=== PATIENT | male | born 1955 | race Caucasian/White ===

== ENCOUNTER 2024-06-30 22:11 | Inpatient (IN) | payer MEDICARE, SELFPAY ==
[2024-06-30 16:45] LABS: % Basophils 0.4 % (0-2); % Eosinophils 2.6 % (0-6); % Immature Granulocytes 0.2 % (0-0.5); % Lymphocytes 18.4 % (20.5-51.1); % Monocytes 11.4 % (1.7-9.3); Absolute Eosinophils 0.1 10^3/uL (0-0.7); Absolute Lymphocytes 0.9 10^3/uL (1.2-3.4); Absolute Monocytes 0.6 10^3/uL (0.1-0.6); Absolute Neutrophils 3.3 10^3/uL (1.4-6.5); Hematocrit 32.5 % (39.0-52.0); Hemoglobin 11.1 g/dL (13.0-18.0); Mean Corp Hgb Conc. 34.2 g/dL (33.0-37.0); Mean Corpuscular Hgb 32.9 pg (27.0-31.0); Mean Corpuscular Volume 96.4 fL (80.0-94.0); Mean Platelet Volume 9.5 fL (7.4-10.4); Nucleated Red Blood Cells % 0 % (-); Platelet Count 157 10^3/uL (130-400); Red Blood Cell Count 3.37 10^6/uL (4.70-6.10); Red Cell Dist. Width 17.1 % (11.5-14.5)
[2024-06-30 17:01] LABS: ALT (SGPT) 15 U/L (0-50); AST (SGOT) 27 U/L (17-59); Alkaline Phosphatase 93 U/L (38-126); Blood Urea Nitrogen 37 mg/dl (9-20); Carbon Dioxide 19 mmol/L (22-30); Chloride 108 mmol/L (98-107); Glucose 126 mg/dl (70-99); Lipase 843 U/L (23-300); Potassium 4.8 mmol/L (3.5-5.1); Sodium 134 mmol/L (135-145); Total Bilirubin 0.8 mg/dl (0.2-1.3); Total Protein 5.6 g/dl (6.3-8.2); eGFR 13.85
--- NOTE | 2024-06-30 18:55 | ED.GENMED ---
History of Present Illness
General
Chief Complaint: Abdominal Symptoms
Source: patient and spouse
Exam Limitations: none
Time Seen by Provider: 06/30/24 18:11
History of Present Illness
History of Present Illness:
68-year-old male complaining of severe diarrhea for 5 or 6 days. No blood or mucus. No abdominal pain. No recent antibiotics. No travel history. No one else is ill at home. Feeling generally weak.
Past History
Past History
ED Past Medical History: HTN, Hypercholesterolemia, NIDDM and Other (Renal insufficiency)
Social History
Personal:
Living: with family
Review of Systems
Review of Systems
All Other Systems: Not applicable
Constitutional: Denies fever or chills
Respiratory: Reports no symptoms
Cardiac: Reports no symptoms
ABD/GI: Denies abdominal pain
Phy Exam
Physical Exam
Physical Exam:
GENERAL: Alert and oriented in no apparent distress. Chronically ill-appearing
EYE: Orbits normal.
NECK: Supple
CARDIAC: Regular rate and rhythm without any obvious murmurs.
LUNGS: Clear breath sounds,normal
ABDOMEN: Soft, without focal tenderness or distention. Significantly elevated BMI
NEUROLOGICAL: Alert and oriented , grossly non-focal
SKIN: Warm and dry, no rash or lesion, no discoloration, skin intact.
MUSCULOSKELETAL: No edema,no deformity.Good color
PSYCH: Normal and appropriate interaction.
Course
Orders/Labs/Results
Orders:
Orders
06/30/24 16:31
Complete Blood Count/With Diff Urgent
Comprehensive Metabolic Panel Urgent
Lipase Urgent
06/30/24 18:51
Urinalysis Reflex To Culture Urgent
Date Specimen was Collected: 06/30/24
Time Specimen was Collected: 18:53
STOOL [C difficile Antigen & Toxins] Urgent
PK Source: Feces/Stool
Specimen Description:
Stool Culture Urgent
KP Source: Feces/Stool
Specimen Description:
0.9% Sodium Chloride 500 ml [Nss] 500 ml IV BOLUS
US Renal With Bladder Urgent
Comment: bladder not full ok, looking at ureteral jets
Reason For Exam: renal failure
06/30/24 18:[address] Non Medication Order As Directed
Physician Order: post void residual
Abnormal Lab Results
06/30/24
16:31
RBC 3.37 L 10^6/uL
(4.70-6.10)
Hgb 11.1 L g/dL
(13.0-18.0)
Hct 32.5 L %
(39.0-52.0)
MCV 96.4 H fL
(80.0-94.0)
MCH 32.9 H pg
(27.0-31.0)
RDW 17.1 H %
(11.5-14.5)
Absolute Lymphs (auto) 0.9 L 10^3/uL
(1.2-3.4)
Lymphocytes % 18.4 L %
(20.5-51.1)
Monocytes % 11.4 H %
(1.7-9.3)
Sodium 134 L mmol/L
(135-145)
Chloride 108 H mmol/L
(98-107)
Carbon Dioxide 19 L mmol/L
(22-30)
BUN 37 H mg/dl
(9-20)
Creatinine 4.4 H* mg/dL
(0.7-1.3)
Glucose 126 H mg/dl
(70-99)
Calcium 8.0 L mg/dl
(8.4-10.2)
Total Protein 5.6 L g/dl
(6.3-8.2)
Albumin 3.0 L g/dl
(3.5-5.0)
Lipase 843 H U/L
(23-300)
06/30/24 16:31
06/30/24 16:31
Vital Signs
Initial and Last Documented VS:
Initial Vital Signs
Temp Pulse Resp Pulse Ox
97.7 F 79 18 97
06/30/24 16:22 06/30/24 16:22 06/30/24 16:22 06/30/24 16:22
Last Documented Vital Signs
Temp Pulse Resp BP Pulse Ox
97.7 F 79 18 119/66 97
06/30/24 16:22 06/30/24 16:22 06/30/24 16:22 06/30/24 19:33 06/30/24 19:55
*Radiology
Radiology exam reviewed: radiology read reviewed (Cortical atrophy)
*Pulse Oximetry
Patient hypoxic: no
Update Note
Update Note:
Patient with diarrhea. Workup in progress. Nonsurgical abdomen. No indication for radiologic testing of the abdomen. Will do renal ultrasounds. Stool culture. Urine. Careful fluids. I called to the office his last creatinine in April was
1.9. Warrants admission and further workup
ED Attending Note
-
Portions of this chart may have been created with voice recognition software.� Occasional wrong word or��sound alike� substitutions may have occurred due to the inherent limitations of voice recognition software.
Discharge Plan
Departure
Patient Disposition: Admit
Date of Disposition: 06/30/24
Time of Disposition: 20:14
Presentation/result/management discussed w/ accepting MD/DO: Hospitalist
Discharge Problem:
Acute renal failure, History of renal insufficiency, Ongoing diarrhea
Prescriptions:
No Action
atorvastatin 80 MG tablet
80 mg PO QPM
carvedilol [Coreg] 25 MG tablet
25 mg PO BID
flaxseed oil 1,000 MG capsule
2,000 mg PO DAILY
amlodipine 10 MG tablet
10 mg PO DAILY
ramipril 10 MG capsule
10 mg PO DAILY
metformin 500 MG tablet extended release 24hr
1,000 mg PO BID
sitagliptin phosphate [Januvia] 100 MG tablet
100 mg PO DAILY
canagliflozin [Invokana] 100 MG tablet
100 mg PO DAILY
Vitamin B12
6,000 mcg PO DAILY
Vitamin D
300 mcg PO DAILY
sulfamethoxazole-trimethoprim 1 TABLET tablet
1 tab PO BID
pantoprazole 40 MG tablet,delayed release (DR/EC)
40 mg PO BID Qty: 60 1RF
aspirin 81 MG tablet,delayed release (DR/EC)
81 mg PO DAILY Qty: 0 0RF
Rx Instructions:
in 5 days
Referrals:
Tara Jim MD [Family Provider] -
Interventions
Interventions:
*Risk Screen - Suicide Last Done: 06/30/24 16:22
*General Assessment Last Done: 06/30/24 16:22
*Neglect/Abuse Screening Last Done: 06/30/24 19:55
*ED- Fall Risk Assessment Last Done: 06/30/24 19:55
*ED COVID-19 Vaccine History Last Done: 06/30/24 19:55
FK-Oahhbc-Qxgwtmhlbu Assessment Last Done: 06/30/24 19:55
Discharge Date and Time
Print Language: MICRONESIAN
[2024-06-30 19:14] VITALS: BMI 40.1
[2024-06-30 19:33] VITALS: BP 119/66
[2024-06-30] MEDS: NSS 500 IV (19:53)
[2024-06-30 20:00] VITALS: BP 126/69
--- NOTE | 2024-06-30 20:43 | HPS.HSE ---
Family Physician
-
Family Physician: Tara Jmi
Chief Complaint
-
Intractable Diarrhea
History of Present Illness
Patient is a 68 y/o male past medical history of coronary artery disease s/p stent, hypertension, hyperlipidemia, diabetes mellitus, and CKD III who presents with diarrhea. Patient reports ongoing diarrhea for about the last week. He reports
abdominal cramping prior to episode of diarrhea. He denies any nausea/vomiting but reports poor oral intake. He reports generalized weakness due to persistent symptoms. He denies fevers, sweats or chills. He denies recent antibiotics, recent
travel, unusual food intake, or sick contacts.
Medical History
Past Medical History
Past Medical History: Reports Other
Additional Past Medical History:
Coronary Artery Disease s/p Stents
Essential Hypertension
Hyperlipidemia
Diabetes Mellitus, Type II
CKD Stage III
Hypothyroidism
GERD/PUD
Past Surgical History: Reports Other
Additional Past Surgical History:
Cardiac Stents
Right Inguinal Hernia Repair
Right Knee Arthroscopy
Social History
Tobacco: Non-smoker
Alcohol: Occasional (Few times a week)
Family History
Family History: Not pertinent
Allergies / Home Medications
Allergies reflects when Allergies were last updated in [employer].
Home Medications with original date entered in [employer]
Allergy/Medication List:
Allergies
Allergy/AdvReac Type Severity Reaction Status Date / Time
codeine Allergy bad dreams Verified 06/30/24 16:23
Home Medications
Vitamin D 300 mcg PO DAILY Supplement 05/15/20
amlodipine 10 mg tablet 10 mg PO DAILY Blood pressure 05/15/20
atorvastatin 80 mg tablet 80 mg PO QPM High cholesterol 05/15/20
canagliflozin 100 mg tablet (Invokana) 100 mg PO DAILY Diabetes 05/15/20
carvedilol 25 mg tablet (Coreg) 25 mg PO BID Blood pressure 05/15/20
metformin 500 mg tablet,extended release 24hr (osmotic) 1,000 mg PO BID Diabetes 05/15/20
ramipril 10 mg capsule 10 mg PO DAILY Blood pressure 05/15/20
aspirin 81 mg tablet,delayed release 81 mg PO DAILY Blood clot prevention/tx ##0 05/18/20
famotidine 20 mg tablet (Pepcid) 20 mg PO DAILY 06/30/24
levothyroxine 100 mcg tablet 100 mcg PO DAILY 06/30/24
Review of Systems
-
A 12 point ROS was completed and negative except as noted: Yes
Constitutional: Denies Fever or Chills
Respiratory: Denies Cough or Trouble Breathing
Cardiac: Denies Chest Pain or Palpitations
Physical Exam
Vital Signs
Vital Signs
Temp Pulse Resp BP Pulse Ox
97.7 F 79 18 119/66 97
06/30/24 16:22 06/30/24 16:22 06/30/24 16:22 06/30/24 19:33 06/30/24 19:55
Physical Exam
General: Comfortable, Conversant and Other (Appears pale)
HEENT: Anicteric and Moist mucous membranes
Respiratory: Clear and Non Labored Respirations
Cardiac: S1/S2 and Regular Rhythm
GI: Soft, Non Tender and Other (Protuberant)
Rectal: Deferred by Provider
Genito-urinary: Deferred by me
Musculoskeletal: No Clubbing and No Cyanosis
Skin: Warm and Dry
Neuro: Awake, Alert, Oriented and Nonfocal/grossly intact
Psych: Calm
Laboratory Results
-
06/30/24 16:31
06/30/24 16:31
Laboratory Results
Total Bilirubin 0.8 mg/dl (0.2-1.3) 06/30/24 16:31
AST 27 U/L (17-59) 06/30/24 16:31
ALT 15 U/L (0-50) 06/30/24 16:31
Alkaline Phosphatase 93 U/L (38-126) 06/30/24 16:31
Lipase 843 U/L (23-300) H 06/30/24 16:31
Data Reviewed
-
Ultrasound: Report Reviewed by me
Lab Data: Labs Reviewed by me
Old Records: Reviewed
Impression/Plan
-
Acute Kidney Injury on CKD III
-Creatinine noted to be 1.9 in April 2024 as outpatient
-Continue IVFs
-Hold metformin and ramipril
-Consult Nephrology
Diarrhea, unclear etiology
-Check stool studies
-Allow clear liquids
Elevated Lipase
-Symptoms are not consistent with pancreatitis given lack of pain
-Possibly related to diarrheal illness
Coronary Artery Disease s/p Stents
-Continue aspirin
Essential Hypertension
-Ramipril on hold due to LANCE
-Continue amlodipine and Coreg with hold parameters
Hyperlipidemia
-Continue atorvastatin
Diabetes Mellitus, Type II
-Metformin and Invokana on hold
-Monitor sugars and continue coverage insulin
Hypothyroidism
-Patient was recently started on levothyroxine in April
-Check TSH
GERD/PUD
-Continue Pepcid
DVT proph: SC Heparin
Code Status: Full Code
[2024-06-30 21:00] VITALS: BP 116/64
--- NOTE | 2024-06-30 21:15 | W.PN.UPDATE ---
Update Note
Progress Note Update
Patient seen in conjunction with CHANTEL. Agree with her findings on history and physical and agree with the assessment and plan unless stated otherwise.
Briefly, this is a 68 y.o w/ h/o CAD s/p stenting, NIDDM, CKD bl creatinine 2, recent diagnosis of hypothyroid started on levothyroxine 100 mcg coming in with 1 week of diarrhea. He reported watery stools several times a day. No abdominal pain,
nausea or vomiting. Endorsed mild abdominal cramps. Denies fevers or chills. No sick contacts. Denies any recent abx use. Denies nsaid use. No history of urinary retention or bph. Family reports decreased po intake over the last week.
Reports occasional etoh.
On arrival in ED he was afebrile, bp 120/60, p78 and normal o2 sat on RA. CBC unremarkable. electrolytes WNL with slightly low bicarb of 19. BUN 37, Cr 4.4. Glucose 127. LFTs WNL. Lipase elevated to 800s. Renal u/s limited by body habitus but
shows medical-renal disease with mild/mod cortical thinning and no hydro.
Assessment and plan
68 y.o here with 1 week of watery diarrhea w mild abdominal cramps. Abdominal exam benign. No leukocytosis and no fevers to suggest diverticulitis. LANCE on CKD likely stemming from recent volume loss. Lytes and acid/base are non-concerning.
LANCE on CKD - Cr 4.4, bl 2.0. No urinary obstruction. BUN is 37 suggesting patient with minimal protein and generally food intake. ?ETOH use. Denies NSAIDS.
- admit to med/surg
- check u/a and urine Na/Cr
- follow i/os for oliguria
- hold ramipril and invokana
- avoid nephrotoxins
- IV NS overnight for now
- orthostatics
- nephrology consultation
Lipase elevation - ?pancreatitis?. No N/V or abdominal pain. Normal LFTs. Benign abdominal exam.
- check etoh level
- diet as tolerated for now
- IV fluids and pain control as above
Diarrhea - Diarrhea appears acute and likely etiology is viral enteritis
- stool cdiff/cultures and wbc
- iv fluids as above
- loperamide prn
DM II
- hold metformin and invokana
- sliding scale insulin
- continue aspirin/statin coreg for CAD
Hypothyroid - recently started levothyroxine 100mcg, ?clinical hyperthyroid
- check tsh levels
DVT PPX - heparin sq
Code status - full code
[2024-06-30 21:49] LABS: TSH Reflex To Free T4 3.13 uIU/ml (0.47-4.68)
[2024-06-30 22:00] VITALS: BP 115/69
[2024-06-30 23:00] VITALS: BP 120/72
[2024-07-01] VITALS (18 sets, daily range): BP systolic 92–116; BP diastolic 46–72; PULSE 74; O2SAT 96
[2024-07-01] MEDS: HEPARIN 5000 UNITS SC ×4 (01:12→23:50)
[2024-07-01] MEDS: NSS 1000 IV ×2 (01:12→09:47)
[2024-07-01 06:30] LABS: Hematocrit 29.1 % (39.0-52.0); Hemoglobin 9.9 g/dL (13.0-18.0); Mean Corpuscular Hgb 32.7 pg (27.0-31.0); Mean Platelet Volume 9.7 fL (7.4-10.4); Platelet Count 120 10^3/uL (130-400); Red Blood Cell Count 3.03 10^6/uL (4.70-6.10); White Blood Cell Count 4.5 10^3/uL (4.8-10.8)
[2024-07-01 06:46] LABS: Blood Urea Nitrogen 39 mg/dl (9-20); Calcium 7.4 mg/dl (8.4-10.2); Carbon Dioxide 19 mmol/L (22-30); Chloride 111 mmol/L (98-107); Estimated Creatinine Clearance 22 ml/min; Glucose 99 mg/dl (70-99); Potassium 5.1 mmol/L (3.5-5.1); Sodium 136 mmol/L (135-145); eGFR 15.08
[2024-07-01 06:56] LABS: Urine Albumin 2+ (Neg - Trace); Urine Bilirubin Negative (Negative); Urine Character Cloudy (Clear); Urine Color Amber; Urine Glucose 4+ (Negative); Urine Ketone Negative (Negative); Urine Leukocyte 3+ (Negative); Urine Nitrite Negative (Negative); Urine Occult Blood 1+ (Negative); Urine Urobilinogen Negative (Neg - 1+)
[2024-07-01] MEDS: NORVASC 10 MG PO (07:38)
[2024-07-01] MEDS: ASPIR LOW (ENTERIC COATED) 81 MG PO (07:38)
[2024-07-01] MEDS: SYNTHROID 100 MCG PO (07:39)
[2024-07-01] MEDS: PEPCID 20 MG PO (07:39)
[2024-07-01] MEDS: COREG 25 MG PO (07:39)
[2024-07-01 07:42] LABS: Glucose - Point of Care 110 mg/dl (70-99)
--- NOTE | 2024-07-01 08:05 | W.PN.HOSP.TC ---
Today's Communication/Plan
-
Continue IV hydration.
Continue loperamide as needed.
Trend renal function.
Assessment / Plan
Assessment / Plan
[place]-[id number]-old male with PMHx significant for CAD s/p PCI, type II DM, CKD 3, hyperlipidemia, hypertension presents with diarrhea for about 1 week.
Plan-
LANCE on CKD stage III
Serum creatinine at 4.1, improved from 4.4 upon admission.
Continue IV fluids for hydration.
Baseline serum creatinine at 1.9 in April 2024 outpatient.
Urine analysis suspicious for UTI, urine squamous epithelial cells pending.
Urine protein to creatinine ratio as recommended by night team would be of less value-questionable accuracy in scenario of CKD stage III.
No need of orthostatic vitals, suspect secondary to LANCE.
Diarrhea-
Acute likely secondary to viral etiology.
C. difficile negative, stool cultures and stool WBC counts pending.
Continue IV fluids.
Continueloperamide
Lipase elevation-
At 835, no nausea or abdominal pain. Likely secondary to decreased clearance from LANCE.
Normal LFTs. No CT abdomen to evaluate for pancreatitis criteria.
IV fluids and pain control and liquid diet.
Type 2 diabetes mellitus-
Hold metformin, and Invokana.
Patient is currently on sliding scale insulin regimen.
HbA1c pending.
CAD-
Continue aspirin and statin.
Hypothyroid-
Recently started on levothyroxine 100 mcg.
TSH levels normal-thyroid 3.13.
DVT prophylaxis-
Heparin SQ
CODE STATUS-
Full code.
Anticipated Discharge: 24 - 48 hours
Subjective/Interval History
-
Date of Service: July 01, 2024
Patient complains of soreness in the back. His diarrheal episodes resolved, cramping abdominal pain resolved. He usually his abdominal cramping is in the lower abdomen mostly in the suprapubic area associated with his loose stools.
Objective Data
-
Labs:
Laboratory Results
07/01/24
06:05
WBC 4.5 L
Hgb 9.9 L
Hct 29.1 L
Plt Count 120 L D
Sodium 136
Potassium 5.1
Chloride 111 H
Carbon Dioxide 19 L
BUN 39 H
Creatinine 4.1 H*
Glucose 99
Calcium 7.4 L
Vital Signs:
Vital Signs
Temp Pulse Resp BP Pulse Ox
97.7 F 78 18 113/56 98
06/30/24 16:22 07/01/24 07:39 07/01/24 02:00 07/01/24 07:39 07/01/24 02:00
Review of Systems
-
History Source: Patient
Constitutional: Reports No Symptoms
EENT: Reports No Symptoms Reported
Respiratory: Reports No Symptoms
Cardiac: Reports No Symptoms
Abdomen/GI: Reports Abdominal Pain (Cramping abdominal pain) and Diarrhea
Breast: Reports No Symptoms
Genitourinary: Reports No Symptoms
Musculoskeletal: Reports Other (Soreness in the back.)
Neuro: Reports No Symptoms
Endocrine: Reports No Symptoms
Physical Exam
-
General: No Apparent Distress and Comfortable
HEENT: Other (Dry mucous membranes.)
Cardiac: Regular Rhythm and S1/S2; Negative Murmur, Rub or Gallop
GI: Soft, Normal Bowel Sounds and Other (Obese body habitus, could not appreciate distention or tenderness in the abdomen)
Genito-urinary: No Costovertebral Tender
Musculoskeletal: No Clubbing, No Cyanosis and No Edema
Skin: Warm
Neuro: AO x 3 and No Motor Deficits
Hematologic / Lymphatic: No Lymphadenopathy
Psych: Calm
Data Reviewed
-
Medical Tests (Nuc Med, Echo etc): Image personally visualized and interpreted, Report Reviewed by me and Discussed with Physician
Labs: Labs Reviewed by me and Discussed with Physician
Sepsis
Vital Signs
110/59, 78, 18, 97.7, 98% on room air.
Physical Exam
Physical Exam:
Mild signs of dehydration, rest of the physical exam-within normal limits.
Capillary Refill
Bilateral Lower Extremity:
Shayy Time: Less than 3 sec
[2024-07-01 08:32] LABS: Urine Squamous Cell >30 /LPF (Few)
[2024-07-01 08:33] LABS: Urine Amorphous Seen; Urine Urothelial Cell 26-30 /LPF (FEW)
[2024-07-01 08:37] LABS: Urine Red Blood Cell 0-2 /HPF (0-2); Urine White Cell >100 /HPF (0-5)
[2024-07-01 08:41] LABS: Urine Bacteria Few (Negative)
[2024-07-01 09:16] LABS: ALT (SGPT) 12 U/L (0-50); AST (SGOT) 21 U/L (17-59); Albumin 2.5 g/dl (3.5-5.0); Lipase 543 U/L (23-300)
[2024-07-01 09:31] LABS: % Basophils 0.4 % (0-2); % Eosinophils 1.7 % (0-6); % Immature Granulocytes 0.4 % (0-0.5); % Monocytes 12.6 % (1.7-9.3); % Neutrophils 65.9 % (42.2-75.2); Absolute Eosinophils 0.1 10^3/uL (0-0.7); Absolute Lymphocytes 0.9 10^3/uL (1.2-3.4); Absolute Monocytes 0.6 10^3/uL (0.1-0.6); Absolute Neutrophils 3.1 10^3/uL (1.4-6.5); Nucleated Red Blood Cells % 0 % (-)
[2024-07-01 09:33] LABS: Glycohemoglobin (HgbA1c) 6.2 % (4.0-5.6)
[2024-07-01 10:13] LABS: Protein/creatinine Ratio 0.2; Urine Protein 26 mg/dl
[2024-07-01 11:23] LABS: Glucose - Point of Care 234 mg/dl (70-99)
--- NOTE | 2024-07-01 11:59 | W.CON.NEPH ---
Consultation
-
Date/Time Consultation Requested: 07/01/2024 7:30 AM
Date/Time Consultation Performed: 07/01/2024 12:00 PM
Requesting Provider: Dr. Holder
Performing Provider: Dr. Ibarra
Reason for Consultation: Acute kidney injury/metabolic acidosis
Medical History
-
Chief Complaint: Acute kidney injury/metabolic acidosis
History of Present Illness:
Patient is a 68 y/o male past medical history of coronary artery disease s/p stent, hypertension (on amlodipine and coreg, ramipril), hyperlipidemia ( on statin) , diabetes mellitus on invokana metformin, and CKD III (.27 april 2024) who presents
with diarrhea. Patient reports ongoing diarrhea for about the last week. He reports abdominal cramping prior to episode of diarrhea. He denies any nausea/vomiting but reports poor oral intake. He reports generalized weakness due to persistent
symptoms. He denies fevers, sweats or chills. He denies recent antibiotics, recent travel, unusual food intake, or sick contacts. On presentation to the hospital he was in acute renal failure with a creatinine of 4.4 off his previous baseline of
and with nongap metabolic acidosis
Past Medical History
Coronary Artery Disease s/p Stents
Essential Hypertension
Hyperlipidemia
Diabetes Mellitus, Type II
CKD Stage III
Hypothyroidism
GERD/PUD
Social History
Tobacco: Non-Smoker
Alcohol: Occasional
Family History
no ckd
Allergies / Home Medications
Allergy/AdvReac Type Severity Reaction Status Date / Time
codeine Allergy bad dreams Verified 06/30/24 16:23
�Medication �Instructions �Recorded �Confirmed �Type
Vitamin D 300 mcg PO DAILY Supplement 05/15/20 06/30/24 History
amlodipine 10 mg tablet 10 mg PO DAILY Blood pressure 05/15/20 06/30/24 History
atorvastatin 80 mg tablet 80 mg PO QPM High cholesterol 05/15/20 06/30/24 History
canagliflozin 100 mg tablet 100 mg PO DAILY Diabetes 05/15/20 06/30/24 History
(Invokana)
carvedilol 25 mg tablet (Coreg) 25 mg PO BID Blood pressure 05/15/20 06/30/24 History
metformin 500 mg tablet,extended 1,000 mg PO BID Diabetes 05/15/20 06/30/24 History
release 24hr (osmotic)
ramipril 10 mg capsule 10 mg PO DAILY Blood pressure 05/15/20 06/30/24 History
aspirin 81 mg tablet,delayed 81 mg PO DAILY Blood clot 05/18/20 06/30/24 Rx
release prevention/tx ##0
famotidine 20 mg tablet (Pepcid) 20 mg PO DAILY 06/30/24 06/30/24 History
levothyroxine 100 mcg tablet 100 mcg PO DAILY 06/30/24 06/30/24 History
Review of Systems
-
History Source: Patient
All other systems: Negative unless noted
Constitutional: Fatigue
EENT: No Symptoms
Respiratory: No Symptoms
Cardiac: No Symptoms
Abdomen/GI: Diarrhea
: No Symptoms
Musculoskeletal: No Symptoms
Skin: No Symptoms
Neurological: Numbness (Chronic feet numbness and paresthesia)
Endocrine: No Symptoms
Hematologic/Lymphatic: No Symptoms
Physical Exam
Vital Signs
Vital Signs
Temp Pulse Resp BP Pulse Ox
97.7 F 78 18 110/59 98
06/30/24 16:22 07/01/24 07:39 07/01/24 02:00 07/01/24 10:00 07/01/24 02:00
Lab Results
07/01/24 06:05
07/01/24 06:05
WBC 4.5 10^3/uL (4.8-10.8) L 07/01/24 06:05
RBC 3.03 10^6/uL (4.70-6.10) L 07/01/24 06:05
Hgb 9.9 g/dL (13.0-18.0) L 07/01/24 06:05
Hct 29.1 % (39.0-52.0) L 07/01/24 06:05
Plt Count 120 10^3/uL (130-400) L D 07/01/24 06:05
Sodium 136 mmol/L (135-145) 07/01/24 06:05
Potassium 5.1 mmol/L (3.5-5.1) 07/01/24 06:05
Chloride 111 mmol/L (98-107) H 07/01/24 06:05
Carbon Dioxide 19 mmol/L (22-30) L 07/01/24 06:05
BUN 39 mg/dl (9-20) H 07/01/24 06:05
Creatinine 4.1 mg/dL (0.7-1.3) H* 07/01/24 06:05
eGFR 15.08 07/01/24 06:05
Glucose 99 mg/dl (70-99) 07/01/24 06:05
Calcium 7.4 mg/dl (8.4-10.2) L 07/01/24 06:05
Albumin 2.5 g/dl (3.5-5.0) L 07/01/24 06:05
Physical Exam
General: AOx3, Nontoxic , NAD
HEENT: PERRL, EOMI, Anicteric, Conjunctivae Clear, Ear/Nose Intact, Hearing Normal, Oropharynx Clear/Moist, Dentition Intact, Facial Symmetry, Neck Supple, Neck: Trachea Midline, No JVD and No Thyromegaly, no Bruits
Respiratory: Clear to auscultation bilaterally with normal lung exersion
Cardiac: S1/S2 and Regular Rate/Rhythm
Breast: Deferred by me
Abdomen: Soft, Nontender, Nondistended, Normal Bowel Sounds and No Hepatosplenomegaly
Rectal: Deferred by Provider
Genito-urinary: No Costovertebral Tenderness
Extremities: No Clubbing, No Cyanosis and No Edema
Skin: No Rash or open lesions
Neuro: Nonfocal/Grossly Intact, CN II-XII (Intact) and Strength (Musculoskeletal exam 5 out of 5 both upper and lower extremities)
Hematologic/Lymphatic: No Cervical Lymphadenopathy, No Submandibular Lymphadenopathy and No Supraclavicular Lymphadenopathy
Psych: Mood/afflect pleasant, Insight/judgement good and Appropriate
Vascular: plus 1 pedal and radial pulses
Data Reviewed
-
CT Scan: Report Reviewed by me (No acute finding)
Ultrasound: Report Reviewed by me (Renal ultrasound report reviewed with noted no hydronephrosis but cortical echogenic texture changes noted)
Labs: Labs Reviewed by me ([facility] CBC, UA: 1+ blood greater than 100 WBCs 3+ leukocyte esterase: 2+ albumin with urine protein to creatinine ratio of 200 mg 4+ glucose few bacteria)
Old Records: Reviewed (Old records reviewed from outpatient April 2024 creatinine 1.9, older records reviewed in electronic medical record from 05/18/2020 creatinine 0.8)
Assessment/Plan
-
Impression:
Acute kidney injury
Chronic kidney disease stage IIIb (1.9 from 05/13)
Diarrhea
Hypertension
Diabetes
Coronary artery disease with previous history of stents in early
Elevated lipase
Anemia
Plan:
LANCE:
- Likely prerenally mediated in setting of diarrhea, patient was also notably hypotensive on admission
- Withholding ramipril and metformin in setting of anabolic acidosis and acute kidney
- I would also withhold SGLT2 inhibitor in setting of acute kidney
- Maintain isotonic IV fluids if acidosis persist will add sodium bicarb
- Would also check SPEP UPEP given proteinuria anemia and narrow anion gap with CKD
CKD:
- Renal ultrasound notes increased cortical echogenicity consistent with chronic disease
-Urine protein to creatinine ratio around 200 mg
-Dysproteinemia workup
-Suspect due to underlying hypertension and longstanding diabetes possibly vascular disease
--- NOTE | 2024-07-01 14:34 | CM ---
CM met with pt bedside
Pt resides with his spouse in a 2SH with 0STE
First floor set up with walk-in shower
Pt is indep with use of a quad cane only
Denies VN/SNF hx and financial insecurities
PCP- Tara Jim
Rx- [facility]
Discharge Disposition- anticipate home, follow for needs
[2024-07-01 15:33] LABS: Urine Sodium 48 mmol/L (30-90)
[2024-07-01] MEDS: LIPITOR 80 MG PO (18:03)
[2024-07-01 18:13] LABS: Glucose - Point of Care 139 mg/dl (70-99)
[2024-07-01 21:27] LABS: Glucose - Point of Care 170 mg/dl (70-99)
[2024-07-01] MEDS: COREG PO (21:52)
[2024-07-02] MEDS: NSS 1000 IV ×3 (03:19→11:39)
[2024-07-02] MEDS: SYNTHROID 100 MCG PO (05:55)
[2024-07-02 06:00] VITALS: BMI 40.9
--- NOTE | 2024-07-02 06:07 | PTCARENOTE ---
When asked when pt last urinated, pt stated 2330. Pt asked if he could try to urinate since he is getting NSS @125mls/hr. Pt stated 'it probably wont happen right now'. Pt stated yes when asked if he feels like he is emptying his bladder completely.
When asked if this RN could bladder scan pt, pt refused. Will continue to educate and plan of care ongoing.
[2024-07-02 06:31] LABS: Hematocrit 29.1 % (39.0-52.0); Hemoglobin 9.8 g/dL (13.0-18.0); Mean Corp Hgb Conc. 33.7 g/dL (33.0-37.0); Mean Corpuscular Hgb 32.9 pg (27.0-31.0); Mean Corpuscular Volume 97.7 fL (80.0-94.0); Mean Platelet Volume 9.5 fL (7.4-10.4); Platelet Count 127 10^3/uL (130-400); Red Blood Cell Count 2.98 10^6/uL (4.70-6.10)
[2024-07-02 07:13] LABS: Blood Urea Nitrogen 34 mg/dl (9-20); Calcium 7.2 mg/dl (8.4-10.2); Carbon Dioxide 20 mmol/L (22-30); Chloride 113 mmol/L (98-107); Estimated Creatinine Clearance 28 ml/min; Glucose 128 mg/dl (70-99); Iron 79 ug/dl (49-181); Phosphorus 3.1 mg/dl (2.5-4.5); Potassium 4.5 mmol/L (3.5-5.1); Sodium 139 mmol/L (135-145); eGFR 19.57
[2024-07-02 07:22] LABS: Percent Saturation 40 % (20-50); Total Iron Binding Capacity 195 ug/dl (261-462)
[2024-07-02 07:28] VITALS: BP 133/69
[2024-07-02 07:47] LABS: Glucose - Point of Care 128 mg/dl (70-99)
[2024-07-02] MEDS: PEPCID 20 MG PO (07:57)
[2024-07-02] MEDS: COREG 25 MG PO ×2 (07:57→22:17)
[2024-07-02] MEDS: ASPIR LOW (ENTERIC COATED) 81 MG PO (07:57)
[2024-07-02] MEDS: HEPARIN 5000 UNITS SC ×2 (07:57→15:18)
[2024-07-02] MEDS: NORVASC 10 MG PO (07:57)
[2024-07-02 11:00] LABS: Glucose - Point of Care 138 mg/dl (70-99)
--- NOTE | 2024-07-02 11:00 | CM ---
Patient seen at bedside
PT/OT rec Home Health
Reviewed options with patient - prefers [facility]
Referral to be entered in [facility]-notified [facility] liaison
PLAN: Home with [facility] when stable
[2024-07-02] MEDS: NSS IV (11:06)
[2024-07-02 11:07] VITALS: BMI 40.9
--- NOTE | 2024-07-02 11:27 | W.PN.NEPH.PH ---
Today's Communication / Plan
-
follow BMP
Assessment/Plan
-
Impression:
Acute kidney injury
Chronic kidney disease stage IIIb (1.9 from 05/13)
Diarrhea
Hypertension
Diabetes
Coronary artery disease with previous history of stents in early
Elevated lipase
Anemia
Plan:
continue IVF, reduce rate
follow BMP
advance diet as allowed
no RASi/SGLT2i for now
-
-
Date of Service: July 02, 2024
CC / HPI / ROS
-
Chief Complaint:
LANCE
History of Present Illness:
LANCE/Cr down to 3.3
mild acidosis 20
BP stable
Review of Systems:
on clears
still some diarrhea
no CP
Labs
-
Labs:
WBC 4.0 10^3/uL (4.8-10.8) L 07/02/24 06:10
RBC 2.98 10^6/uL (4.70-6.10) L 07/02/24 06:10
Hgb 9.8 g/dL (13.0-18.0) L 07/02/24 06:10
Hct 29.1 % (39.0-52.0) L 07/02/24 06:10
Plt Count 127 10^3/uL (130-400) L 07/02/24 06:10
Sodium 139 mmol/L (135-145) 07/02/24 06:10
Potassium 4.5 mmol/L (3.5-5.1) 07/02/24 06:10
Chloride 113 mmol/L (98-107) H 07/02/24 06:10
Carbon Dioxide 20 mmol/L (22-30) L 07/02/24 06:10
BUN 34 mg/dl (9-20) H 07/02/24 06:10
Creatinine 3.3 mg/dL (0.7-1.3) H 07/02/24 06:10
eGFR 19.57 07/02/24 06:10
Glucose 128 mg/dl (70-99) H 07/02/24 06:10
Calcium 7.2 mg/dl (8.4-10.2) L 07/02/24 06:10
Phosphorus 3.1 mg/dl (2.5-4.5) 07/02/24 06:10
Albumin 2.5 g/dl (3.5-5.0) L 07/01/24 06:05
Physical Exam
-
Vital Signs:
Vital Signs
Temp Pulse Resp BP Pulse Ox
98 F 79 14 133/69 95
07/02/24 07:28 07/02/24 07:28 07/02/24 07:28 07/02/24 07:28 07/02/24 07:28
Cardiovascular:: Regular rate and rhythm
Respiratory:: Bilateral: CTA
Lung Excursion:: Normal
Abdomen:: Nontender and Soft
Bowel Sounds:: Normal
Extremity Edema:: None: Bilateral:
--- NOTE | 2024-07-02 11:40 | W.PN.HOSP.TC ---
Addendum entered and electronically signed by Anastacio Holder DO 07/03/24 14:42:
[facility] CDI: Morbid obesity
Original Note:
Today's Communication/Plan
-
Pending nephrology workup.
Trend serum creatinine.
Pending peripheral smear, and folate, vitamin B12 levels
Continue IV fluids at 70 mL/h.
Assessment / Plan
Assessment / Plan
[age]htsnq-39-hsmp-old male with PMHx significant for CAD s/p PCI, type II DM, CKD 3, hyperlipidemia, hypertension presents with diarrhea for about 1 week.
Plan-
LANCE on CKD stage III
Serum creatinine at 3.3 improved from 4.4 upon admission.
Continue IV fluids for hydration.
Baseline serum creatinine at 1.9 in April 2024 outpatient.
Urine analysis suspicious for UTI, urine squamous epithelial cells pending.
Urine protein to creatinine ratio as recommended by night team would be of less value-questionable accuracy in scenario of CKD stage III.
No need of orthostatic vitals, suspect secondary to LANCE.
Nephrology on board, nephrology inputs appreciated.
Currently nephrology working up for C3, C4 levels, globulins, heavy chains, light chains, serum protein electrophoresis. All test results pending.
Pancytopenia-
Suspect secondary to CKD versus acute process.
TIBC low, ferritin transferrin saturations within normal limits-anemia of chronic disease?
Folate and B12 levels pending,
Peripheral smear ordered. Results pending.
Diarrhea-
Acute likely secondary to viral etiology.
C. difficile negative, stool cultures and stool WBC counts pending.
Continue IV fluids.
CT abdomen and pelvis-No acute process in the abdomen or pelvis noted.
Continue loperamide as needed.
Lipase elevation-
At 835 came down to 300., no nausea or abdominal pain. Likely secondary to decreased clearance from LANCE.
Normal LFTs. No CT abdomen to evaluate for pancreatitis criteria.
IV fluids and pain control and liquid diet.
Type 2 diabetes mellitus-
Hold metformin, and Invokana.
Patient is currently on sliding scale insulin regimen.
HbA1c pending.
CAD-
Continue aspirin and statin.
Hypothyroid-
Recently started on levothyroxine 100 mcg.
TSH levels normal-thyroid 3.13.
DVT prophylaxis-
Heparin SQ
CODE STATUS-
Full code.
Anticipated Discharge: 24 - 48 hours
Subjective/Interval History
-
Date of Service: July 02, 2024
Overnight patient had only a single episode of loose stool, otherwise patient has been feeling well.
Objective Data
-
Labs:
Laboratory Results
07/02/24
06:10
WBC 4.0 L
Hgb 9.8 L
Hct 29.1 L
Plt Count 127 L
Sodium 139
Potassium 4.5
Chloride 113 H
Carbon Dioxide 20 L
BUN 34 H
Creatinine 3.3 H
Glucose 128 H
Calcium 7.2 L
Vital Signs:
Vital Signs
Temp Pulse Resp BP Pulse Ox
98 F 79 14 133/69 95
07/02/24 07:28 07/02/24 07:28 07/02/24 07:28 07/02/24 07:28 07/02/24 07:28
I&O
07/01/24 07/02/24 07/03/24
06:59 06:59 06:59
Intake Total 480 / 480
Output Total 700 / 700
Balance -220 / -220
Review of Systems
-
History Source: Patient
All other systems: Reviewed and negative
Constitutional: Denies Fever, No Appetite or Fatigue
Respiratory: Reports No Symptoms
Cardiac: Reports No Symptoms
Abdomen/GI: Reports Abdominal Pain (Cramping lower abdominal pain improving.)
Genitourinary: Reports No Symptoms
Musculoskeletal: Reports No Symptoms
Skin: Reports No Symptoms
Neuro: Reports No Symptoms
Endocrine: Reports No Symptoms
Hematologic / Lymphatic: Reports No Symptoms
Allergy / Immunology: Reports No Symptoms
Physical Exam
-
General: No Apparent Distress and Comfortable; Negative Respiratory Distress
HEENT: Moist Mucous Membranes
Respiratory: Clear to Auscultation; Negative Wheezes, Rales, Rhonchi or Crackles
Cardiac: Regular Rhythm and S1/S2; Negative Murmur, Rub or Gallop
GI: Soft, Nontender, Normal Bowel Sounds and Other (Could not appreciate distention given patient's body habitus.)
Musculoskeletal: No Clubbing, No Cyanosis and No Edema
Skin: Warm
Neuro: AO x 3 and No Motor Deficits
Psych: Calm
Data Reviewed
-
CT Scan: Image personally visualized and interpreted, Report Reviewed by me and Discussed with Physician
Ultrasound: Report Reviewed by me and Discussed with Physician
Labs: Labs Reviewed by me, Discussed with Physician and Discussed with Nurse
[2024-07-02 11:59] LABS: Intact PTH 177.8 pg/ml (13.6-85.8)
--- NOTE | 2024-07-02 12:21 | VNURNOTE ---
Home Health Liaison met with patient at bedside to discuss [facility] nurse/therapy, visits, schedule and homebound status. Patient is agreeable and understands that visits at home will be 2-3 x per week to assess and teach medical management. Patient
stated he splits his time between [place] and [place]. He will be in [place] for a few weeks. Patient is aware that [facility] will contact them for start of care in 1-2 days after discharge from .
[facility] referral completed in [facility].
[2024-07-02 13:27] LABS: Folate 4.8 ng/ml (2.76-20); Vitamin B12 213 pg/ml (239-931)
[2024-07-02 14:56] VITALS: BP 136/76
[2024-07-02 16:28] LABS: Glucose - Point of Care 145 mg/dl (70-99)
[2024-07-02] MEDS: LIPITOR 80 MG PO (17:01)
[2024-07-02 21:06] LABS: Erythropoietin (EPO) 8 mU/mL (4-27)
[2024-07-02 21:53] LABS: Glucose - Point of Care 121 mg/dl (70-99)
[2024-07-02 23:36] LABS: Complement C3 108 mg/dl (88-165)
[2024-07-02 23:50] VITALS: BP 123/77
[2024-07-03] MEDS: NSS 1000 IV ×2 (01:12→15:29)
[2024-07-03] MEDS: HEPARIN 5000 UNITS SC ×3 (01:54→17:01)
[2024-07-03] MEDS: SYNTHROID 100 MCG PO (05:57)
[2024-07-03 06:00] VITALS: BMI 41.1
[2024-07-03 07:22] LABS: Mean Corp Hgb Conc. 33.3 g/dL (33.0-37.0); Mean Corpuscular Hgb 32.7 pg (27.0-31.0); Mean Platelet Volume 9.3 fL (7.4-10.4); Platelet Count 133 10^3/uL (130-400); Red Blood Cell Count 3.06 10^6/uL (4.70-6.10); Red Cell Dist. Width 17.2 % (11.5-14.5); White Blood Cell Count 3.7 10^3/uL (4.8-10.8)
[2024-07-03 07:28] VITALS: BP 121/51
[2024-07-03] MEDS: ASPIR LOW (ENTERIC COATED) 81 MG PO (07:36)
[2024-07-03] MEDS: NORVASC 10 MG PO (07:36)
[2024-07-03] MEDS: COREG 25 MG PO ×2 (07:37→20:14)
[2024-07-03 07:43] LABS: Glucose - Point of Care 131 mg/dl (70-99)
--- NOTE | 2024-07-03 08:22 | W.PN.HOSP.TC ---
Documented by User: Erin Carpenter MD, Resident 07/03/24 13:32
Today's Communication/Plan
-
Stop IV fluids.
Refresh Tears for sticky eyes. (No conjunctivitis)
Pancytopenia workup pending
Cyanocobalamin, vitamin D supplementation.
Assessment / Plan
Assessment / Plan
[age]hw[age]cb-7-bhvy-old male with PMHx significant for CAD s/p PCI, type II DM, CKD 3, hyperlipidemia, hypertension presents with diarrhea for about 1 week.
Plan-
LANCE on CKD stage III
Serum creatinine at 2.4 improved from 4.4 upon admission.
Discontinue IV fluids today. Advance diet to low residue diet.
Encourage optimal oral fluid intake.
Baseline serum creatinine at 1.9 in April 2024 outpatient.
C3, C4-within normal limits (C4 mildly elevated),
Urine analysis suspicious for UTI, urine squamous epithelial cells pending.
Urine protein to creatinine ratio as recommended by night team would be of less value-questionable accuracy in scenario of CKD stage III.
No need of orthostatic vitals, suspect secondary to LANCE.
Nephrology on board, nephrology inputs appreciated.
Currently nephrology workup-globulins, heavy chains, light chains, serum protein electrophoresis pending.
Pancytopenia-
Suspect secondary to CKD versus acute process.
TIBC low, ferritin transferrin saturations within normal limits-anemia of chronic disease?
Normal folate levels, low vitamin B12 levels-supplement cyanocobalamin.
Peripheral smear ordered. Results negative for parasites.
At this point suspect more likely secondary to pancytopenia
Diarrhea-
Acute likely secondary to viral etiology.
C. difficile negative, stool cultures and stool WBC counts pending.
Discontinue IV fluids. Advance diet to low residue diet.
CT abdomen and pelvis-No acute process in the abdomen or pelvis noted.
Continue loperamide as needed.
Elevated PTH levels-
Suspect secondary hyperparathyroidism and CKD scenario.
Placed order for vitamin D D levels.
Vitamin D insufficiency, start vitamin D replacement.
Lipase elevation-
At 835 came down to 300., Elevated to 543. No nausea or abdominal pain. Likely secondary to decreased clearance from LANCE.
Normal LFTs. No CT abdomen to evaluate for pancreatitis criteria.
IV fluids and pain control and liquid diet.
Type 2 diabetes mellitus-
Hold metformin, and Invokana.
Patient is currently on sliding scale insulin regimen.
HbA1c pending.
CAD-
Continue aspirin and statin.
Regular alcohol intake with no dependence history or withdrawal history-
Add thiamine.
Morbid obesity -
Likely due to excess calories.
No diagnosis of obesity hypoventilation syndrome.
Hypothyroid-
Recently started on levothyroxine 100 mcg.
TSH levels normal-thyroid 3.13.
DVT prophylaxis-
Heparin SQ
CODE STATUS-
Full code.
Anticipated Discharge: 24 - 48 hours
Subjective/Interval History
-
Date of Service: July 03, 2024
Patient complains of weakness and feeling wobbly on his legs today. He wants his diet to be advanced. He had 2 episodes of loose stools yesterday.
He is also complaining of stickiness in both his eyes with discharge and crusting.
Objective Data
-
Labs:
Laboratory Results
07/03/24
06:50
WBC 3.7 L
Hgb 10.0 L
Hct 30.0 L
Plt Count 133
Sodium Pending
Potassium Pending
Chloride Pending
Carbon Dioxide Pending
BUN Pending
Creatinine Pending
Glucose Pending
Calcium Pending
Vital Signs:
Vital Signs
Temp Pulse Resp BP Pulse Ox
97.9 F 107 16 121/51 100
07/03/24 07:28 07/03/24 07:28 07/03/24 07:28 07/03/24 07:28 07/03/24 07:28
I&O
07/02/24 07/03/24 07/04/24
06:59 06:59 06:59
Intake Total 480 / 480 240 / 240
Output Total 700 / 700 300 / 300
Balance -220 / -220 -60 / -60
Review of Systems
-
History Source: Patient
Constitutional: Reports Fatigue and Weakness
EENT: Reports Other (Bilateral eye itching, discharge, stickiness.)
Respiratory: Reports No Symptoms
Cardiac: Reports No Symptoms
Abdomen/GI: Reports No Symptoms
Breast: Reports No Symptoms
Genitourinary: Reports No Symptoms
Musculoskeletal: Reports No Symptoms
Skin: Reports No Symptoms
Neuro: Reports No Symptoms
Endocrine: Reports No Symptoms
Hematologic / Lymphatic: Reports No Symptoms
Allergy / Immunology: Reports No Symptoms
Physical Exam
-
General: No Apparent Distress and Comfortable
HEENT: Moist Mucous Membranes, [place] Conjunctivae, PERRLA and Other (Yellow crusting noted on eyelids, no conjunctival suffusion,)
Respiratory: Clear to Auscultation; Negative Wheezes, Rales, Rhonchi or Crackles
Cardiac: Regular Rhythm and S1/S2; Negative Murmur, Rub or Gallop
GI: Soft, Nontender, Normal Bowel Sounds and Other (Difficult to comment given body habitus.)
Genito-urinary: Other (Bilateral scrotal swelling on inspection, suspect hydrocele (palpation not done))
Musculoskeletal: No Clubbing, No Cyanosis and No Edema
Skin: Warm
Neuro: AO x 3 and No Motor Deficits
Psych: Calm
Data Reviewed
-
Labs: Labs Reviewed by me, Discussed with Physician and Discussed with Nurse

Documented by User: Anastacio Holder DO 07/03/24 13:59
Today's Communication/Plan
-
Light IV fluids.
Refresh Tears for sticky eyes. (No conjunctivitis)
Pancytopenia workup pending
Cyanocobalamin, vitamin D supplementation.
[2024-07-03 08:29] LABS: Blood Urea Nitrogen 29 mg/dl (9-20); Calcium 7.1 mg/dl (8.4-10.2); Carbon Dioxide 20 mmol/L (22-30); Chloride 112 mmol/L (98-107); Estimated Creatinine Clearance 37 ml/min; Glucose 122 mg/dl (70-99); Potassium 4.5 mmol/L (3.5-5.1); Sodium 141 mmol/L (135-145)
--- NOTE | 2024-07-03 09:10 | VATNOTE ---
VAT rounds: during routine assessment, large infiltration of IV fluids noted to R forearm. Arm significantly swollen. IV fluids stopped, IV removed, heat applied to arm and arm elevated. Patient education completed regarding treatment of
infiltration, instructed pt to keep arm elevated and apply heat throughout the day. PCN notified of same. New IV started per documentation.
--- NOTE | 2024-07-03 09:15 | PN.CDI ---
CDI
- -
CDI:
Physician Documentation Request
Admit Date: 06/30/24 22:11
Dear Doctor Gallo/Resident,
Please review the following and provide your response in the progress notes.
Clinical Indicators:
Height: 5 ft 9 in
Weight: 278 lb
BMI:41.1
If possible, please provide an associated diagnosis related to the abnormal BMI, such as:
BMI > or = to 40
Obesity:
Due to excess calories
Drug induced
Due to other cause
Severe or morbid obesity:
With alveolar hypoventilation (Obesity hypoventilation syndrome)
Without alveolar hypoventilation
- Other
Use of terms such as suspected, likely, concern for, or probable (associated with a specific diagnosis that is being evaluated, monitored, or treated as if it exists) are acceptable and can be coded in the inpatient setting, when documented at the
time of discharge.
Thank you,
Tali Ryan RN
CDI Specialist
Reading Text
Please use your independent medical judgment in providing your response.
[2024-07-03] MEDS: CYANOCOBALAMIN 1000 MCG IM (09:39)
[2024-07-03 10:09] LABS: Vitamin D, 25-OH*** 22.6 ng/mL (30-80)
[2024-07-03 10:44] VITALS: BP 117/62; PULSE 81; O2SAT 96
[2024-07-03 10:49] VITALS: BP 117/62
[2024-07-03 11:42] LABS: Glucose - Point of Care 134 mg/dl (70-99)
--- NOTE | 2024-07-03 11:54 | CM ---
Patient seen at bedside with
PT rec Home Health
CM consult completed
Referral [facility] - accepted
IMM explained & signed. In chart
PLAN: home with [facility] when stable
to transport
--- NOTE | 2024-07-03 12:25 | W.PN.NEPH.PH ---
Today's Communication / Plan
-
IV fluid
Assessment/Plan
-
Impression:
Acute kidney injury
Chronic kidney disease stage IIIb (1.9 from 05/13)
Diarrhea
Hypertension
Diabetes
Coronary artery disease with previous history of stents in early
Elevated lipase
Anemia
Plan:
continue IVF, reduced rate
follow BMP
advance diet as allowed
no RASi/SGLT2i for now, may be able to restart yesterday depending on blood pressures
-
-
Date of Service: July 03, 2024
CC / HPI / ROS
-
Chief Complaint:
LANCE
History of Present Illness:
LANCE/Cr down to 2.5
mild acidosis 20 persists
BP stable
Review of Systems:
Tolerating diet advance
no CP
Nonoliguric
Labs
-
Labs:
WBC 3.7 10^3/uL (4.8-10.8) L 07/03/24 06:50
RBC 3.06 10^6/uL (4.70-6.10) L 07/03/24 06:50
Hgb 10.0 g/dL (13.0-18.0) L 07/03/24 06:50
Hct 30.0 % (39.0-52.0) L 07/03/24 06:50
Plt Count 133 10^3/uL (130-400) 07/03/24 06:50
Sodium 141 mmol/L (135-145) 07/03/24 06:50
Potassium 4.5 mmol/L (3.5-5.1) 07/03/24 06:50
Chloride 112 mmol/L (98-107) H 07/03/24 06:50
Carbon Dioxide 20 mmol/L (22-30) L 07/03/24 06:50
BUN 29 mg/dl (9-20) H 07/03/24 06:50
Creatinine 2.5 mg/dL (0.7-1.3) H 07/03/24 06:50
eGFR 27.30 07/03/24 06:50
Glucose 122 mg/dl (70-99) H 07/03/24 06:50
Calcium 7.1 mg/dl (8.4-10.2) L 07/03/24 06:50
Phosphorus 3.1 mg/dl (2.5-4.5) 07/02/24 06:10
Albumin 2.5 g/dl (3.5-5.0) L 07/01/24 06:05
Physical Exam
-
Vital Signs:
Vital Signs
Temp Pulse Resp BP Pulse Ox
97.9 F 107 16 121/51 100
07/03/24 07:28 07/03/24 07:28 07/03/24 07:28 07/03/24 07:28 07/03/24 07:28
Cardiovascular:: Regular rate and rhythm
Respiratory:: Bilateral: Coarse
Lung Excursion:: Normal
Abdomen:: Nontender and Soft
Bowel Sounds:: Normal
Extremity Edema:: None: Bilateral:
[2024-07-03 13:24] LABS: Hepatitis B Surface Antigen Negative (Negative)
[2024-07-03 13:34] LABS: Hepatitis A IgM Antibody Negative (Negative); Hepatitis B Core Ab, IgM Negative (Negative)
[2024-07-03 13:42] LABS: Hepatitis A Antibody, Total Positive (Negative); Hepatitis B Core Ab, Total Negative (Negative); Hepatitis B Surface Antibody Negative; Hepatitis C Antibody Negative (Negative)
[2024-07-03] MEDS: REFRESH EYE DROPS (PF) 2 DROPS OPHTH ×2 (14:04→20:15)
[2024-07-03 14:46] VITALS: BP 124/71
[2024-07-03 16:48] LABS: Glucose - Point of Care 139 mg/dl (70-99)
[2024-07-03] MEDS: LIPITOR 80 MG PO (17:01)
[2024-07-03 20:15] VITALS: BP 127/68
[2024-07-03] MEDS: DESENEX/MITRAZOL/ZEASORB 1 APPLIC TOPICAL (20:15)
[2024-07-03 21:23] LABS: Glucose - Point of Care 133 mg/dl (70-99)
[2024-07-03 22:56] LABS: Albumin 2.48 g/dL (3.75-5.01); Alpha 1 Globulin 0.38 g/dL (0.19-0.46); SPEP IFE Reflex Not Done
[2024-07-03 23:00] VITALS: BP 113/63
[2024-07-04] MEDS: HEPARIN 5000 UNITS SC ×2 (00:04→08:11)
[2024-07-04 06:00] VITALS: BMI 41.5
[2024-07-04] MEDS: SYNTHROID 100 MCG PO (06:03)
[2024-07-04] MEDS: NSS 1000 IV (06:04)
[2024-07-04 06:40] LABS: Hematocrit 29.6 % (39.0-52.0); Hemoglobin 9.9 g/dL (13.0-18.0); Mean Corp Hgb Conc. 33.4 g/dL (33.0-37.0); Mean Corpuscular Hgb 32.7 pg (27.0-31.0); Mean Corpuscular Volume 97.7 fL (80.0-94.0); Mean Platelet Volume 9.3 fL (7.4-10.4); Platelet Count 122 10^3/uL (130-400); Red Blood Cell Count 3.03 10^6/uL (4.70-6.10); Red Cell Dist. Width 17.2 % (11.5-14.5)
[2024-07-04 07:19] VITALS: BP 125/64
[2024-07-04 07:46] LABS: Blood Urea Nitrogen 26 mg/dl (9-20); Calcium 7.2 mg/dl (8.4-10.2); Carbon Dioxide 19 mmol/L (22-30); Chloride 115 mmol/L (98-107); Estimated Creatinine Clearance 47 ml/min; Glucose 128 mg/dl (70-99); Potassium 4.4 mmol/L (3.5-5.1); Sodium 142 mmol/L (135-145); eGFR 35.68
[2024-07-04] MEDS: REFRESH EYE DROPS (PF) 2 DROPS OPHTH (08:11)
[2024-07-04] MEDS: COREG 25 MG PO (08:11)
[2024-07-04] MEDS: PEPCID 20 MG PO (08:12)
[2024-07-04] MEDS: NORVASC 10 MG PO (08:12)
[2024-07-04] MEDS: ASPIR LOW (ENTERIC COATED) 81 MG PO (08:13)
[2024-07-04] MEDS: VITAMIN B-12 1000 MCG PO (08:13)
[2024-07-04] MEDS: DESENEX/MITRAZOL/ZEASORB 1 APPLIC TOPICAL (08:14)
[2024-07-04] MEDS: VITAMIN D3 (cholecalciferol) 250 MCG PO (08:30)
[2024-07-04 08:35] LABS: Glucose - Point of Care 119 mg/dl (70-99)
--- NOTE | 2024-07-04 09:06 | W.PN.HOSP.TC ---
Today's Communication/Plan
-
Bicarbonate, loperamide
Discontinue IV fluids.
Follow-up with outpatient oncology, GI, primary care, nephrology.
Assessment / Plan
Assessment / Plan
Wzmirkdtbx-80-ne[age]-old male with PMHx significant for CAD s/p PCI, type II DM, CKD 3, hyperlipidemia, hypertension presents with diarrhea for about 1 week.
Plan-
LANCE on CKD stage III
Serum creatinine at 2.4 improved from 4.4 upon admission.
Discontinue IV fluids today. Advance diet to low residue diet.
Encourage optimal oral fluid intake.
Baseline serum creatinine at 1.9 in April 2024 outpatient.
C3, C4-within normal limits (C4 mildly elevated),
Urine analysis suspicious for UTI, urine squamous epithelial cells pending.
Urine protein to creatinine ratio as recommended by night team would be of less value-questionable accuracy in scenario of CKD stage III.
No need of orthostatic vitals, suspect secondary to LANCE.
Nephrology on board, nephrology inputs appreciated.
Currently nephrology workup-globulins, heavy chains, light chains, serum protein electrophoresis pending.
Pancytopenia-
Suspect secondary to CKD versus acute process.
TIBC low, ferritin transferrin saturations within normal limits-anemia of chronic disease?
Normal folate levels, low vitamin B12 levels-supplement cyanocobalamin.
Peripheral smear ordered. Results negative for parasites.
At this point suspect more likely secondary to pancytopenia
Diarrhea-
Acute likely secondary to viral etiology.
C. difficile negative, stool cultures and stool WBC counts pending.
Discontinue IV fluids. Advance diet to low residue diet.
CT abdomen and pelvis-No acute process in the abdomen or pelvis noted.
Continue loperamide as needed.
Acidemia-
Continues to be having low CO2 throughout admission
Nephrology added bicarb
Continue oral bicarbonate at home
Elevated PTH levels-
Suspect secondary hyperparathyroidism and CKD scenario.
Placed order for vitamin D D levels.
Vitamin D insufficiency, start vitamin D replacement.
Lipase elevation-
At 835 came down to 300., Elevated to 543. No nausea or abdominal pain. Likely secondary to decreased clearance from LANCE.
Normal LFTs. No CT abdomen to evaluate for pancreatitis criteria.
IV fluids and pain control and liquid diet.
Type 2 diabetes mellitus-
Hold metformin, and Invokana.
Patient is currently on sliding scale insulin regimen.
HbA1c pending.
CAD-
Continue aspirin and statin.
Regular alcohol intake with no dependence history or withdrawal history-
Add thiamine.
Morbid obesity -
Likely due to excess calories.
No diagnosis of obesity hypoventilation syndrome.
Hypothyroid-
Recently started on levothyroxine 100 mcg.
TSH levels normal-thyroid 3.13.
DVT prophylaxis-
Heparin SQ
CODE STATUS-
Full code.
Anticipated Discharge: Today
Subjective/Interval History
-
Date of Service: July 04, 2024
Single episode of bowel incontinence in the p.m. yesterday during sleep. He is continuing to have itching around his eyes. He feels pretty rundown.
Objective Data
-
Labs:
Laboratory Results
07/04/24
06:23
WBC 4.0 L
Hgb 9.9 L
Hct 29.6 L
Plt Count 122 L
Sodium 142
Potassium 4.4
Chloride 115 H
Carbon Dioxide 19 L
BUN 26 H
Creatinine 2.0 H
Glucose 128 H
Calcium 7.2 L
Vital Signs:
Vital Signs
Temp Pulse Resp BP Pulse Ox
98.3 F 76 16 125/64 96
07/04/24 07:19 07/04/24 07:19 07/04/24 07:19 07/04/24 07:19 07/04/24 07:19
I&O
07/03/24 07/04/24 07/05/24
06:59 06:59 06:59
Intake Total 240 / 240 1800 / 1800
Output Total 300 / 300 500 / 500
Balance -60 / -60 1300 / 1300
Review of Systems
-
History Source: Patient
Constitutional: Reports No Appetite and Fatigue
Respiratory: Reports No Symptoms
Cardiac: Reports No Symptoms
Abdomen/GI: Reports Diarrhea
Breast: Reports No Symptoms
Genitourinary: Reports No Symptoms
Skin: Reports No Symptoms
Neuro: Reports No Symptoms
Endocrine: Reports No Symptoms
Hematologic / Lymphatic: Reports No Symptoms
Physical Exam
-
General: No Apparent Distress and Morbidly Obese
HEENT: Moist Mucous Membranes
Respiratory: Clear to Auscultation; Negative Wheezes, Rales, Rhonchi or Crackles
Cardiac: Regular Rhythm, S1/S2, Murmur, Rub and Gallop
GI: Soft, Nontender, Nondistended and Normal Bowel Sounds
Musculoskeletal: No Clubbing, No Cyanosis, Edema, Right Lower Extrem (1+ up to mid law) and Edema, Left Lower Extrem (1+ up to mid law)
Neuro: AO x 3 and No Motor Deficits
Psych: Calm
Data Reviewed
-
Medical Tests (Nuc Med, Echo etc): Report Reviewed by me
Labs: Labs Reviewed by me, Discussed with Physician and Discussed with Nurse
[2024-07-04 09:57] LABS: Erythrocyte Sed Rate 60 mm/hour (0-20)
[2024-07-04 11:52] LABS: Glucose - Point of Care 125 mg/dl (70-99)
--- NOTE | 2024-07-04 12:15 | W.PN.NEPH.PH ---
Today's Communication / Plan
-
stable for discharge
started bicarbonate
creatinine stable
Assessment/Plan
-
Impression:
Acute kidney injury
Chronic kidney disease stage IIIb (1.9 from 05/13)
Diarrhea
Hypertension
Diabetes
Coronary artery disease with previous history of stents in early
Elevated lipase
Anemia
Plan:
Creatinine now at baseline ~2
started sodium bicarbonate 325mg BID
advance diet as allowed
no RASi/SGLT2i for now, may be able to restart yesterday depending on blood pressures
stable for discharge
we will follow up as outpatient
-
-
Date of Service: July 04, 2024
CC / HPI / ROS
-
Chief Complaint:
LANCE
History of Present Illness:
LANCE/Cr down to 2.0
mild acidosis 19 persists
BP stable
Review of Systems:
Tolerating diet advance
no CP
Nonoliguric
Labs
-
Labs:
WBC 4.0 10^3/uL (4.8-10.8) L 07/04/24 06:23
RBC 3.03 10^6/uL (4.70-6.10) L 07/04/24 06:23
Hgb 9.9 g/dL (13.0-18.0) L 07/04/24 06:23
Hct 29.6 % (39.0-52.0) L 07/04/24 06:23
Plt Count 122 10^3/uL (130-400) L 07/04/24 06:23
Sodium 142 mmol/L (135-145) 07/04/24 06:23
Potassium 4.4 mmol/L (3.5-5.1) 07/04/24 06:23
Chloride 115 mmol/L (98-107) H 07/04/24 06:23
Carbon Dioxide 19 mmol/L (22-30) L 07/04/24 06:23
BUN 26 mg/dl (9-20) H 07/04/24 06:23
Creatinine 2.0 mg/dL (0.7-1.3) H 07/04/24 06:23
eGFR 35.68 07/04/24 06:23
Glucose 128 mg/dl (70-99) H 07/04/24 06:23
Calcium 7.2 mg/dl (8.4-10.2) L 07/04/24 06:23
Phosphorus 3.1 mg/dl (2.5-4.5) 07/02/24 06:10
Albumin 2.5 g/dl (3.5-5.0) L 07/01/24 06:05
Physical Exam
-
Vital Signs:
Vital Signs
Temp Pulse Resp BP Pulse Ox
98.3 F 76 16 125/64 96
07/04/24 07:19 07/04/24 07:19 07/04/24 07:19 07/04/24 07:19 07/04/24 07:19
Cardiovascular:: Regular rate and rhythm
Respiratory:: Bilateral: Coarse
Lung Excursion:: Normal
Abdomen:: Nontender and Soft
Bowel Sounds:: Normal
Extremity Edema:: None: Bilateral:
--- NOTE | 2024-07-04 12:31 | CM ---
IMM signed yesterday in chart
[facility] referral in [facility] & accepted
PLAN: home with [facility] when stable
to transport
[2024-07-04] MEDS: BENADRYL 25 MG PO (13:53)
[2024-07-04 14:49] VITALS: BP 108/65
--- NOTE | 2024-07-07 16:35 | W.DCSUMMARY ---
Discharge Summary
Discharge Data
Date of Admission: 06/30/24
Date of Discharge: 07/04/24
-
Pending Results: No
Hospital Course
Impression-
68-year-old male with PMHx significant for CAD s/p PCI, type II DM, CKD 3, hyperlipidemia, hypertension presents with diarrhea for about 1 week. Patient is admitted to the hospital for LANCE secondary to dehydration.
Hospital course-
Chata, during his 4-day hospital course was found to be in LANCE with a serum creatinine of 4.4. In March 2024 he had a serum creatinine of 1.9, and is diagnosed with stage IIIa CKD. He is also noticed to be having diarrheal episodes with some
fecal incontinence in the setting of acute deconditioning. Hence nephrology was consulted to workup his LANCE, patient received urine creatinine to protein ratio,
Patient also received C3, C4, negative SPEP and ADRIANA in the hospitalization all of which were negative. A peripheral blood smear was performed looking for parasites which is also negative. His stool for C. difficile, norovirus are negative. His
stool for WBC counts, ova and parasites including Salmonella, Shigella, Campylobacter jejuni are negative. His LANCE was suspected to be solely from hypoperfusion secondary to dehydration. Patient improved on IV hydration for 3 days. Nephrology was
consulted who were following his LANCE throughout hospitalization. During this hospitalization he was also found to be in chronic metabolic acidosis for which bicarbonate was added twice daily into his medication regimen.
However his fecal incontinence was still a question of concern as there was no etiology established during the inpatient hospital workup. Hence patient was given a referral to follow-up with gastroenterology.
During the hospital patient is also diagnosed with new onset pancytopenia, his peripheral blood smear was negative, his PT/INR were negative, he was also found to have vitamin B12 and vitamin D deficiencies. All of which points towards a
malabsorption syndrome or other hematological process. Which is why patient is referred to gastroenterology as well as hematology/oncology.
Patient also developed acute blepharitis of bilateral eyes in the hospital for which patient was given fresh tears and Benadryl. Patient's eyes improved partially during the hospitalization.
He was discharged home with a serum creatinine of 2.0, with repeat BMP in 1 week. He is also recommended to see his primary care physician within 1 week.
Medication changes-
Bicarbonate 650 mg half tablet twice daily added to his home medication regimen.
His Invokana was held till he sees his primary care physician.
His ramipril was held during hospitalization, but was continued upon discharge.
Patient was also started on vitamin B12 and thiamine, and vitamin D during hospitalization.
Imaging obtained during hospitalization-
Abdomen/pelvis CT-07/01/2024-
No acute process in the abdomen or pelvis
Renal ultrasound-06/30/2024-
Kidney visualization is limited by body habitus. Mild to moderate renal cortical atrophy noted with no shadowing renal or bladder calculus. No hydronephrosis.
Discharge Plan
-
Patient Disposition: Home with Home Care
Discharge Diagnosis/Procedures: LANCE secondary to dehydration, acute GE-unknown etiology
Condition: Fair
Diet: Low Cholesterol and Diabetic, Carb Controlled
Activity: No restrictions
Driving Restrictions: As prior to admission
Bathing Restrictions: None
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
Other Services: VN, PT and OT
Activity Restrictions/Additional Instructions:
Use loperamide for diarrhea as needed.
Your consumption of fluids should be equal to the amount of stool volume lost.
Instructions: Dehydration, Adult (DC), Diarrhea in adults - ED discharge instructions
Referrals:
Kian Cheema MD [Active] - in two to three weeks
(Patient has unexplained diarrhea-stool workup, parasite, ova, WBCs stools negative.
Workup for malabsorption versus other etiologies.)
Tara Jim MD [Family Provider] -
Isaak Ibarra DO [Active] - in two weeks
()
Anastacio Sam MD [Active] - in two to four weeks (Pancytopenia workup)
Prescriptions:
New
sodium bicarbonate 650 mg Tablet
325 mg PO BID 30 Days Qty: 60 1RF
Refresh Classic (PF) 1.4-0.6 % Dropperette
2 drops ophthalmic (eye) BID 7 Days Qty: 2 0RF
cyanocobalamin (vitamin B-12) [Vitamin B-12] 1,000 mcg Tablet
1,000 mcg PO DAILY 30 Days Qty: 30 1RF
loperamide 2 mg capsule
2 mg PO Q6H PRN (Reason: loose stool) 10 Days Qty: 40 1RF
Continued
atorvastatin 80 MG tablet
80 mg PO QPM
carvedilol [Coreg] 25 MG tablet
25 mg PO BID
amlodipine 10 MG tablet
10 mg PO DAILY
ramipril 10 MG capsule
10 mg PO DAILY
metformin 500 MG tablet extended release 24hr
1,000 mg PO BID
aspirin 81 MG tablet,delayed release (DR/EC)
81 mg PO DAILY Qty: 0 0RF
Rx Instructions:
in 5 days
levothyroxine 100 mcg tablet
100 mcg PO DAILY
famotidine [Pepcid] 20 mg Tablet
20 mg PO DAILY
Vitamin D
300 mcg PO DAILY 30 Days Qty: 30 0RF
Held
Invokana 100 MG tablet
100 mg PO DAILY
Hold Instructions: Resume on 07/18/24. 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
Discharge Orders:
Discharge Patient (As Directed); Ordered 07/04/24
Ordered By: Erin Carpenter
Discharge Date and Time
Discharge Date/Time: 07/04/24 15:20
Print Language: BELARUSIAN
== END 2024-07-04 15:20 | disposition home health service (06) | DRG 683 ==
LOC: 3 WEST ACU 22:11
PROVIDERS: Emergency Medicine; Physician Assistant Medical; Specialist; Student in an Organized Health Care Education/Training Program; ADMITTING PHYSICIAN Internal Medicine; ATTENDING PHYSICIAN Internal Medicine; CONSULT PHYSICIAN Specialist; EMERGENCY PHYSICIAN Emergency Medicine; FAMILY PHYSICIAN Family Medicine
DX: N17.9 Acute kidney failure, unspecified (principal); E87.20 Acidosis, unspecified; Z68.41 Body mass index [BMI] 40.0-44.9, adult; N18.32 Chronic kidney disease, stage 3b; I12.9 Hypertensive chronic kidney disease with stage 1 through stage 4 chronic kidney disease, or unspecified chronic kidney disease; E11.22 Type 2 diabetes mellitus with diabetic chronic kidney disease; A08.4 Viral intestinal infection, unspecified; E05.90 Thyrotoxicosis, unspecified without thyrotoxic crisis or storm; D63.1 Anemia in chronic kidney disease; E78.00 Pure hypercholesterolemia, unspecified; Z95.5 Presence of coronary angioplasty implant and graft; I25.10 Atherosclerotic heart disease of native coronary artery without angina pectoris; K21.9 Gastro-esophageal reflux disease without esophagitis; Z88.5 Allergy status to narcotic agent; Z79.890 Hormone replacement therapy; Z79.82 Long term (current) use of aspirin; Z79.84 Long term (current) use of oral hypoglycemic drugs; Z79.899 Other long term (current) drug therapy; E66.01 Morbid (severe) obesity due to excess calories
CPT/HCPCS: 74176; 76770; 80048; 80053; 81003; 81015; 82040; 82306; 82570; 82607; 82668; 82728; 82746; 82962; 83036; 83540; 83550; 83690; 83970; 84100; 84155; 84156; 84165; 84300; 84443; 84450; 84460; 85025; 85027; 85652; 86160; 86704; 86705; 86706; 86708; 86709; 86803; 87015; 87045; 87046; 87086; 87207; 87324; 87340; 87427; 87449; 87798; 97163; 97167; 97530; 97535

== ENCOUNTER 2024-12-03 08:56 | Inpatient (IN) | payer MEDICARE, SELFPAY ==
[2024-12-03] VITALS (55 sets, daily range): BP systolic 87–149; BP diastolic 65–105; BMI 40.4; BMI 39.4
--- NOTE | 2024-12-03 06:37 | ED.GENMED ---
History of Present Illness
General
Chief Complaint: Breathing Problem
Source: patient and spouse
Exam Limitations: none
Time Seen by Provider: 12/03/24 06:31
Nursing documentation reviewed up to this point in time: agreed with
History of Present Illness
History of Present Illness:
Patient with history of CAD, status post cardiac stents in 2006, currently taking 81 mg aspirin daily, presents ED secondary to worsening shortness of breath over the past 24 hours. Denies chest pain. Denies chest palpitations. Denies fever or
chills. Denies nausea or vomiting. Patient also reports intermit episodes of diaphoresis and dizziness. Per paramedics, patient was found to be in respiratory distress with initial pulse ox in low 80s, requiring supplemental oxygen. Patient also
was given nebulizer treatment and route to the hospital, with mild improvement in symptoms. Denies recent surgery. Denies leg pain, but reports chronic leg swelling. 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
miles. Patient does not see operator automated process routinely. Patient's medical history also diabetes, on oral medication.
Past History
Past History
ED Past Medical History: HTN, Hypercholesterolemia, NIDDM and Other (Renal insufficiency)
Social History
Personal:
Living: with family
Review of Systems
Review of Systems
Allergies reviewed?: Yes
All Other Systems: ROS reviewed and negative except as documented in HPI and ROS
Constitutional: Reports no symptoms; Denies fever
EENT: Reports no symptoms
Respiratory: Reports trouble breathing; Denies cough
Cardiac: Reports diaphoresis; Denies chest pain or palpitations
ABD/GI: Reports no symptoms; Denies nausea or vomiting
: Reports no symptoms
Musculoskeletal: Reports edema
Skin: Reports no symptoms
Neurological: Reports dizzy
Phy Exam
Physical Exam
Physical Exam:
Physical Exam
General: moderate respiratory distress, acutely ill. afebrile. obese
Head: nc/at. eomi
Neck: supple. no jvd
Heart: s1/s2 regular rate and rhythm, tachycardic
Lungs: moderate respiratory distress. diminished breath sounds bilaterally
Abdomen: normal bowel sounds. not tender.
Neuro: alert and oriented x 3. no focal neurological deficits
Skin: no rash
Psychiatric: well kept. interactive and cooperative
Extremities: LE b/l edema, pitting. no calf tenderness.
Scores
Heart Failure Risk
Heart Failure Risk Score: Yes
History of Stroke or TIA: No
History of intubation for respiratory distress: No
Heart rate on ED arrival >/= 110: Yes
SaO2 <90% on arrival on room air: Yes
HR >/=110 during 3min walk test (or too ill to perform test): Yes
ECG has acute ischemic changes: No
Urea >/=12mmol/L (BUN 33.6mg/dL): No
Serum CO2>/=35mmol/L: No
Troponin I or T elevated to ID Level (0.4mg/dL): No
NT-proBNP >/=5,000ng/L (5,000pg/ml): Yes
HF Risk Score: 4
Admission Status: HIGH RISK 26.1% Consider SNF treatment or admission to hospital
Course
Orders/Labs/Results
Orders:
Orders
12/03/24
Electrocardiogram (*1) Stat
Reason for Study: Chest Pain
Comment: DONE
12/03/24 06:34
Portable Chest Xray [CR Chest Portable - 1 View] Urgent
Comment:
Reason For Exam: sob, pale, diaphoretic, hx stents
Reason Study Needs to be Portable: Patient Unstable
12/03/24 06:38
Complete Blood Count/With Diff Urgent
Comprehensive Metabolic Panel Urgent
D-Dimer Urgent
Magnesium Urgent
Comment: ADD ON
NT-proBNP Urgent
Troponin I Urgent
12/03/24 06:49
Add On- LAB Urgent
Tests Added?: magnesium
12/03/24 07:07
CT Chest PE Study Urgent
Comment:
Reason For Exam: sob/hypoxia with elevated d-dimer
12/03/24 07:15
0.9% Sodium Chloride 250 ml [Nss] 250 ml IV BOLUS
12/03/24 07:[address] Non Medication Order As Directed
Physician Order: PTT 6 hours after initial start of Heparin infusion
Above order entered?: Yes
12/03/24 07:45
Heparin 43234 Units/250 ml 25,000 units in 250 ml IV PER PROTOCOL
Weight to be used for heparin protocol in kilograms (kg):: 124
Protocol:: DVT/PE
PTT Goal Range to be used:: PTT 73 to 111 seconds
Order type:: Initial
INITIAL Infusion Dose (UNITS/KG/hr) & then follow protocol:: 18 units/kg/hr
Infusion Dose in UNITS/hr & then follow protocol (UNITS/hr):: 2,000
INFUSION RATE in mL/hr & then follow protocol (mL/hr):: 20
For DVT/PE algorithm, re-bolus for low PTT?: Yes
PTT less than or equal to 64 seconds:: Re-bolus 80 units/kg (max 10,000units). Increase by 500 units/hr
(+ 5mL/hr)
PTT 64.1 to 72.9 seconds:: Re-bolus 40 units/kg (max 5,000 units). Increase by 200 units/hr
(+ 2mL/hr)
PTT 73 to 111 seconds:: Target Range. No change in rate.
PTT 111.1 to 130.9 seconds:: Decrease rate by 200 units/hr (- 2 mL/hr)
PTT 131 to 199.9 seconds:: HOLD for 1 hr. Then decrease by 400 units/hr (- 4mL/hr)
PTT greater than or equal to 200 seconds:: HOLD for 2 hrs & Notify Provider. Then decrease by 500 units/hr
(- 5mL/hr)
Lab follow-up:: Each change, PTT q6h until 2 consecutive are therapeutic. Then
PTT daily.
12/03/24 07:49
PTT Urgent
Comment: Obtain baseline before beginning heparin infusion if not already collected
Prothrombin Time Urgent
Comment: ADD ON
Heparin 9,900 units IV NOW STA
12/03/24 07:55
Heparin 9,900 units IV PRN PRN
12/03/24 07:58
Heparin 5,000 units IV PRN PRN
12/03/24 08:00
Flush (0.9% Sodium Chloride) [Flush (Nss)] See Dose Instructions IV PER PROTOCOL
12/03/24 08:31
Consult Interventional Radiology [IRAD CONSULT] Routine
Consulting Provider: Jasper Saul
Was physician already notified: Yes
Procedure being ordered, including laterality if: Massive PE -eval for intraarterial catheter directed
applicable: thrombolysis
Acknowledgement that appropriate orders are entered: Yes
12/03/24 08:33
Admit/Transfer Patient As Directed
Co-Sign Provider:
Level of Care: Inpatient admission
Assign to:: ICU
Physician / Group: Inder
Diagnosis: Massive PE
Reason for Hospitalization: see progress note
Expected length of stay greater than two midnights?: Yes
ELOS- Estimated Length of Stay in days: 4
I certify the patient meets the requirements for IP care: Yes
PRN Pain Medication Management As Directed
May give lesser potent ordered pain med per pt: Yes
preference::
Protocol:: Medication orders for pain may be administered in a
manner that supports deferring to patient preference
when the pt is:
- Requesting an ordered lesser potent pain medication.
Least to most potent pain medications are defined
as: acetaminophen < NSAID < tramadol < opioids
(morphine, oxycodone, hydromorphone).
- Requesting a lesser dose of the same medication IF
ORDERED.
- Requesting a less intrusive route of administration
if both routes are prescribed by the provider (PO <
IV).
12/03/24 08:35
Code Status As Directed
Resuscitation Status: Full Code
12/03/24 08:41
Add On- LAB Urgent
Tests Added?: PT/INR
12/03/24 08:42
Heparin 1000 Units/500 ml [Heparin] 1,000 units in 500 ml .ROUTE .STK-MED
Lidocaine 2% [Xylocaine 2% Mdv] 20 ml .ROUTE .STK-MED ONE
12/03/24 Lunch
Clear Liquid
12/03/24 10:41
Troponin I Q8H
Acetaminophen [Tylenol] 650 mg PO Q4HPRN PRN
Dextrose 50%-Water [Dextrose 50% Syringe] 12.5 grams IV [id number] PRN
Glucagon [GlucaGen] 1 mg IM PRN PRN
Magnesium Sulfate 2 Gram/50 ml [Magnesium Sulfate] 2 gram in 50 ml IV NOW
12/03/24 10:41
Echo 2D MMode Color/Doppler Urgent
Reason for Study: Massive PE
Compound Worker Consult Routine
Consulting Provider: David Gómez
Was physician already notified: Yes
Reason for consult: PE
Heparin Protocol- PTT Orders As Directed
PTT per Heparin protocol: -Obtain CBC and baseline PTT - if not already collected.
-Obtain PTT 6 hours from start of infusion. Then, every 6 hours until 2 consecutive
PTT's are therapeutic. Then, PTT Daily.
-With each rate change, obtain PTT every 6 hours until 2 consecutive PTT's are
therapeutic. Then, PTT Daily.
Activity As Directed
Activity Level: Bedrest
Bedside Glucose Monitoring As Directed
Frequency: AC&HS
Additional Instructions:: Change to q6h if pt on TPN, tube feeding or not eating
Hemetest Stools As Directed
I&O [Intake/ Output] As Directed
Frequency: q12h
Notify MD As Directed
Notify physician if: PTT is greater than or equal to 200.
US Legs, Bilateral [US Periph Venous LOWER Ext Cole] Urgent
Comment:
Reason For Exam: PE
12/03/24 11:30
Insulin Aspart Corrective Low [Novolog Flexpen-Low Resistance] See Protocol SC AC
12/03/24 14:00
PTT Urgent
12/03/24 18:41
Troponin I Q8H
12/04/24 02:41
Troponin I Q8H
12/04/24 06:00
CBC/No Diff [Complete Blood Count/No Diff] IN AM
CMP [Comprehensive Metabolic Panel] IN AM
Glycohemoglobin (HgbA1c) IN AM
Magnesium IN AM
12/04/24 08:00
Cholecalciferol (Vitamin D3) [VITAMIN D3 (cholecalciferol)] 25 mcg PO DAILY
Levothyroxine [Synthroid] 100 mcg PO DAILY
cyanocobalamin (vitamin B-12) [Vitamin B-12] 1,000 mcg PO DAILY
12/05/24 06:00
Complete Blood Count/No Diff Q2D
Comment: notify provider: Platelet count < 130,000 or decrease by 50% from baseline
12/07/24 06:00
Complete Blood Count/No Diff Q2D
Comment: notify provider: Platelet count < 130,000 or decrease by 50% from baseline
12/09/24 06:00
Complete Blood Count/No Diff Q2D
Comment: notify provider: Platelet count < 130,000 or decrease by 50% from baseline
12/11/24 06:00
Complete Blood Count/No Diff Q2D
Comment: notify provider: Platelet count < 130,000 or decrease by 50% from baseline
12/13/24 06:00
Complete Blood Count/No Diff Q2D
Comment: notify provider: Platelet count < 130,000 or decrease by 50% from baseline
12/15/24 06:00
Complete Blood Count/No Diff Q2D
Comment: notify provider: Platelet count < 130,000 or decrease by 50% from baseline
12/17/24 06:00
Complete Blood Count/No Diff Q2D
Comment: notify provider: Platelet count < 130,000 or decrease by 50% from baseline
12/19/24 06:00
Complete Blood Count/No Diff Q2D
Comment: notify provider: Platelet count < 130,000 or decrease by 50% from baseline
Abnormal Lab Results
12/03/24 12/03/24
06:38 07:49
RBC 3.95 L 10^6/uL
(4.70-6.10)
Hgb 12.8 L g/dL
(13.0-18.0)
MCV 101.3 H fL
(80.0-94.0)
MCH 32.4 H pg
(27.0-31.0)
MCHC 32.0 L g/dL
(33.0-37.0)
RDW 15.7 H %
(11.5-14.5)
Absolute Monos (auto) 0.9 H 10^3/uL
(0.1-0.6)
Monocytes % 9.7 H %
(1.7-9.3)
PT 15.6 H Sec
(11.4-14.6)
D-Dimer 3.79 H ug/mlFEU
(0.00-0.50)
Carbon Dioxide 20 L mmol/L
(22-30)
Glucose 229 H mg/dl
(70-99)
Calcium 7.5 L mg/dl
(8.4-10.2)
Magnesium 1.1 L mg/dl
(1.6-2.3)
Alkaline Phosphatase 133 H U/L
(38-126)
Troponin I 0.056 H* ng/ml
Total Protein 6.1 L g/dl
(6.3-8.2)
Albumin 3.1 L g/dl
(3.5-5.0)
12/03/24 06:38
12/03/24 06:38
Vital Signs
Initial and Last Documented VS:
Initial Vital Signs
Pulse Resp BP Pulse Ox
97 32 111/75 89
12/03/24 06:26 12/03/24 06:26 12/03/24 06:26 12/03/24 06:26
Last Documented Vital Signs
Temp Pulse Resp BP Pulse Ox
98.6 F 97 32 98/81 97
12/03/24 07:05 12/03/24 10:24 12/03/24 10:24 12/03/24 10:24 12/03/24 09:04
MDM/Problems Addressed
MDM/Problems Addressed:
History, exam, and CT chest concerning for large PE with right heart strain along with unstable vital signs. Patient will be placed on mid flow oxygen, as patient is unable to tolerate BiPAP. Lasix will be provided, as blood pressure tolerates.
PERT alert activated. Will start heparin protocol. Discussed with on-call engineering test mechanic, Dr. Gómez, who recommends IRAD evaluation for potential tPA administration.
Discussed with (IRAD) via tigertext.
Patient will be admitted to ICU for further evaluation and treatment
Critical care statement: A total of 40 minutes of critical care time was provided for this patient. This includes management of unstable vital signs, evaluation of the patient at bedside, reviewing the patient's pertinent medical records, discussion
with consultants, review of old EKGs and review of pertinent medical records. This time with separate from time utilized to perform the aforementioned documented procedures
*Pulse Oximetry
SaO2: 89
Oxygen Mode of Delivery: Room air
Patient hypoxic: yes
*EKG
Interpreted by ED Provider?: Yes
EKG Intrepretation Date: 12/03/24
Heart Rate: 112
Rate: tachycardiac
Rhythm: sinus
Interval: long QT
QRS Pattern: right bundle branch block
*Critical Care Note
Total Time (30-74mins, 75-104mins- exclusive of procedures): 40 min
ED Attending Note
-
Portions of this chart may have been created with voice recognition software.� Occasional wrong word or��sound alike� substitutions may have occurred due to the inherent limitations of voice recognition software.
Discharge Plan
Departure
Patient Disposition: Admit
Date of Disposition: 12/03/24
Time of Disposition: 07:54
Admit to: ICU
Presentation/result/management discussed w/ accepting MD/DO: Hospitalist
Discharge Problem:
Pulmonary embolism
Interventions
Interventions:
*Risk Screen - Suicide Last Done: 12/03/24 06:26
*General Assessment Last Done: 12/03/24 07:05
*Neglect/Abuse Screening Last Done: 12/03/24 06:37
*ED- Fall Risk Assessment Last Done: 12/03/24 06:37
*ED COVID-19 Vaccine History Last Done: 12/03/24 06:37
*ED Influenza Vaccine History Last Done: 12/03/24 06:37
*Nursing Disposition Last Done: 12/03/24 08:47
ED- Cardiac Assessment Last Done: 12/03/24 07:05
ED- Pulmonary Assessment Last Done: 12/03/24 07:05
Discharge Date and Time
Discharge Date/Time: 12/03/24 08:47
[2024-12-03 06:46] LABS: Hematocrit 40.0 % (39.0-52.0); Hemoglobin 12.8 g/dL (13.0-18.0); Mean Corp Hgb Conc. 32.0 g/dL (33.0-37.0); Mean Corpuscular Volume 101.3 fL (80.0-94.0); Nucleated Red Blood Cells % 0 % (-); Platelet Count 148 10^3/uL (130-400); Red Cell Dist. Width 15.7 % (11.5-14.5)
[2024-12-03 07:03] LABS: D-Dimer 3.79 ug/mlFEU (0.00-0.50)
[2024-12-03 07:14] LABS: ALT (SGPT) 17 U/L (0-50); AST (SGOT) 36 U/L (17-59); Albumin 3.1 g/dl (3.5-5.0); Alkaline Phosphatase 133 U/L (38-126); Blood Urea Nitrogen 12 mg/dl (9-20); Calcium 7.5 mg/dl (8.4-10.2); Carbon Dioxide 20 mmol/L (22-30); Chloride 102 mmol/L (98-107); Estimated Creatinine Clearance 70 ml/min; Glucose 229 mg/dl (70-99); Magnesium 1.1 mg/dl (1.6-2.3); Potassium 4.4 mmol/L (3.5-5.1); Sodium 135 mmol/L (135-145); Total Protein 6.1 g/dl (6.3-8.2); eGFR 59.47
[2024-12-03] MEDS: NSS 250 IV (07:24)
[2024-12-03 07:32] LABS: Troponin I 0.056 ng/ml
--- NOTE | 2024-12-03 07:46 | EDRN ---
is RN brought the pt to CT scan and stayed with the pt, CT scan was finished and this RN brought the pt back to ED bed #8, Dr. Day came to the pts bedside to update the pt and the pts on the POC, per Dr. Day this RN tiger texted respiratory for
Midflow and this RN also reached out to IV team to place a second PIV
--- NOTE | 2024-12-03 07:50 | EDRN ---
the pt is on 12L Midflow, Sp02 96%
[2024-12-03] MEDS: HEPARIN 9900 UNITS IV (07:55)
[2024-12-03] MEDS: HEPARIN 25000 UNITS/250 ML IV ×2 (07:56→12:35)
[2024-12-03 08:05] LABS: APTT 29.0 Sec (23.4-35.0)
--- NOTE | 2024-12-03 08:16 | CON.INTV ---
Consultation
Consultation Request
Date/Time Consultation Requested: 12/03/2024
Date/Time Consultation Performed: 12/03/2024
Medical History
-
Chief Complaint: Shortness of breath
History of Present Illness:
Patient is a very pleasant 69-year-old gentleman who presents to the emergency room with shortness of breath. Patient reports that he first noticed shortness of breath on the morning of 12/02 when he walked in the morning. During the day he has
continued to felt poorly with episodes of dizziness and even near syncope. Overnight patient had progressively worsening shortness of breath and EMS was called. Patient was noted to be in respiratory distress with initial pulse oximetry in low
80s. Patient was started on supplemental oxygen, given nebulized treatment and brought to the emergency room. In the emergency room patient had borderline blood pressure along with tachycardia and mild respiratory distress. A chest x-ray was
performed followed by a CT PE protocol which was suggestive of bilateral pulmonary embolism with RV strain. Patient also noted to have elevated troponin and BNP. In view of hypoxia, patient was subsequently switched to mid flow supplemental
oxygen. In view of submassive pulmonary embolism, a PERT alert was called. Patient is being admitted to ICU in view of hypoxic respiratory failure and mural painter consultation was requested for further input.
Patient has no prior history of pulmonary embolism. However he reports that there is strong family history of pulmonary embolism with his mother and sibling affected with VTE events. Patient frequently drives to [place] and 2 weeks ago had a
10-hour long car drive which likely is a provoking factor for underlying VTE event.
Past Medical History
Past Medical History: Reports Other
Additional Past Medical History:
Coronary Artery Disease s/p Stents
Essential Hypertension
Hyperlipidemia
Diabetes Mellitus, Type II
CKD Stage III
Hypothyroidism
GERD/PUD
Past Surgical History: Reports Other
Additional Past Surgical History:
Cardiac Stents
Right Inguinal Hernia Repair
Right Knee Arthroscopy
Social History
Tobacco: Non-smoker
Alcohol: Occasional (Few times a week)
Family History
Family History: Not pertinent
Allergies / Home Medications
Allergies
Allergy/AdvReac Type Severity Reaction Status Date / Time
codeine Allergy bad dreams Verified 12/03/24 06:33
Home Medications
�Medication �Instructions �Recorded �Confirmed �Last Taken �Type
canagliflozin 100 mg tablet 100 mg PO DAILY Diabetes 05/15/20 12/03/24 12/02/24 History
(Invokana)
Held on 07/04/24.
Instructions: Resume on
07/18/24. Hold Invokana until
you see your primary care
physician, and follow-up with
your flask maker.
carvedilol 25 mg tablet (Coreg) 25 mg PO BID Blood pressure 05/15/20 12/03/24 12/02/24 History
metformin 500 mg tablet,extended 1,000 mg PO BID Diabetes 05/15/20 12/03/24 12/02/24 History
release 24hr (osmotic)
ramipril 10 mg capsule 10 mg PO DAILY Blood pressure 05/15/20 12/03/24 12/02/24 History
aspirin 81 mg tablet,delayed 81 mg PO DAILY Blood clot 05/18/20 12/03/24 12/02/24 Rx
release prevention/tx ##0
cyanocobalamin (vitamin B-12) 1,000 mcg PO DAILY 30 days #30 tabs 07/04/24 12/03/24 12/02/24 Rx
1,000 mcg tablet (Vitamin B-12)
atorvastatin 80 mg tablet (Lipitor) 80 mg PO DAILY 12/03/24 12/03/24 12/02/24 History
cholecalciferol (vitamin D3) 25 25 mcg PO DAILY 12/03/24 12/03/24 12/02/24 History
mcg (1,000 unit) tablet (Vitamin
D3)
levothyroxine 100 mcg tablet 100 mcg PO DAILY 12/03/24 12/03/24 12/02/24 History
pantoprazole 20 mg tablet,delayed 20 mg PO DAILY 12/03/24 12/03/2412/02/25 History
release
Review of Systems
-
Hematologic/Lymphatic: Other (All 14 systems reviewed and negative except as stated above in the history of present illness.)
Vitals / Labs / Diagnostic Testing
Vital Signs
Temp Pulse Resp BP Pulse Ox
98.6 F 103 24 94/65 95
12/03/24 07:05 12/03/24 07:05 12/03/24 07:05 12/03/24 07:05 12/03/24 08:04
Lab Data
12/03/24 06:38
12/03/24 06:38
Laboratory Results
12/03/24
07:49
APTT 29.0
Diagnostic Testing:
Physical Exam
-
HEENT: Normocephalic
Cardiovascular: S1/S2 (Tachycardia) and Peripheral Edema (Bilateral 2+ edema)
Respiratory: Clear and Other (Mildly increased work of breathing, currently on mid flow)
GI: Soft and Non Distended
Neurology: Awake and Alert
Skin: Warm
General: Comfortable
Assessment
-
#1. Submassive bilateral pulmonary embolism with RV strain
- PERT alert activated in ED, patient emergently evaluated
- Continue heparin infusion. IR consult for consideration for catheter directed therapies in view of RV strain, borderline low blood pressure and hypoxic respiratory failure with elevated troponin and BNP
- Admit to ICU
- Etiology of pulmonary embolism likely provoked or related to long road travel, 10-hour drive couple of weeks ago. Also reported strong family history of VTE events in patient's mother and sibling. Duration of anticoagulation to be determined.
Considering life-threatening nature of current VTE event, obesity, strong family history and likely persistence of provoking factors in future, will favor long-term anticoagulation in the absence of any contraindication.
- Check bilateral lower extremity venous duplex
- Will need outpatient follow-up with pulmonary clinic
#2. Acute hypoxic respiratory failure.
- Due to bilateral pulmonary embolism and RV strain
- Currently on mid flow with improved saturations, target O2 sat above 90% in view of pulmonary hypertension
- Monitor closely in ICU, low threshold to transition to high flow
#3. H/O CAD
- Reported PCI > 10 years ago.
- Await ECHO, continue telemetry monitoring
#4. Troponin leak, suspect Type II NSTEMI
- Suspect troponin is due to bilateral PE
- Serial Troponin.
- Continue Heparin infusion, telemetry and await ECHO
#5. Bilateral pedal edema
- BNP > 2700
- At risk of underlying CHF
- Hold diuresis for now considering borderline blood pressure
- Await ECHO
#6. h/o PUD
- Reported h/o hematemesis close to 10 years ago
- Currently been on Pepcid, no active issues
- Continue PPI
#7. CKD stage III
- Cr unremarkable.
- At risk of contrast nephropathy
- Hold Metformin and Ramipril for now
- Labs in AM
#8. BMI 40.4
- At risk of sleep disordered breathing
- Can discuss regarding sleep study as out patient
Other medical diagnoses:
- DM
- HLD
- Hypothyroidism
Critical Care time 68 mins -- The patient is admitted for acute critical illness for the treatment of vital organ failure and/or prevention of further life-threatening conditions. Total care includes time spent in review of history, physical exam,
medications, hemodynamic/ventilator parameters, laboratory data, imaging and discussion with house staff, pharmacy, respiratory therapy, orderlies teacher, and nursing.
Data:
EKG 11/2024: Sinus tachycardia with incomplete right bundle branch block. QTc prolonged at 559.
CT-PE 11/2024: 1. SEVERE ACUTE BILATERAL PULMONARY ARTERIAL EMBOLIC DISEASE with large pulmonary arterial emboli in both the right and left pulmonary arteries.
2. ACUTE RIGHT HEART STRAIN and PULMONARY ARTERIAL HYPERTENSION.
3. Chronic granulomatous disease infection.
4. Mild subsegmental atelectasis and scarring in both lungs.
5. Mild splenomegaly.
--- NOTE | 2024-12-03 08:47 | EDRN ---
this RN gave verbal report to the receiving IR nurse Cynthia MAJANO
--- NOTE | 2024-12-03 08:49 | HPS.HSE ---
Family Physician
-
Family Physician: Tara Jim
Chief Complaint
-
Shortness of breath and sweating
History of Present Illness
Patient noticed acute onset of shortness of breath since yesterday morning. He was also having sweating with it. Denies any chest pain with that.
He noticed shortness of breath yesterday morning when he got up and started to walk. He had dizziness with it.
The shortness of breath progressed overnight so they called the EMS.
In ER he is noted to be hypoxic with saturations in the 80s and systolic blood pressure in the 90s. CT PE protocol was suggestive of bilateral pulmonary embolism without RV strain. There was a large clot burden in the right main pulmonary artery
as well as left main pulmonary artery. There was also extension into the segmental arteries bilaterally.
He denies prior history of DVT or PE.
He says he is up to date with his cancer screening including colonoscopy and PSA testing. Non-smoker.
No recent flights but he does take a trip to [place] once a month and he did 3 weeks ago.
He denies any leg pain but he has significant bilateral lower extremity edema which he cannot explain to me. Denies any prior history of heart disease or heart failure. He never got his lower extremity edema checked out.
He had a prior peptic ulcer disease and had a bleeding in 2020. He was admitted apparently to hospital then had an endoscopy and also had a repeat endoscopy. He is on Protonix daily. Denies any recent discovery of blood in the stools or black
stools. No blood in the urine.
Denies any history of prior stroke or bleeding into the brain.
Apart from primary he follows with the GI physician for diarrhea and actuarial clerk because of prior acute kidney failure.
According to the he is being less active and les ambulatory lately.
Medical History
Past Medical History
Past Medical History: Reports Other
Additional Past Medical History:
Coronary Artery Disease s/p Stents
Essential Hypertension
Hyperlipidemia
Diabetes Mellitus, Type II
CKD Stage III
Hypothyroidism
GERD/PUD
Past Surgical History: Reports Other
Additional Past Surgical History:
Cardiac Stents
Right Inguinal Hernia Repair
Right Knee Arthroscopy
Social History
Tobacco: Non-smoker
Alcohol: Occasional (Few times a week)
Family History
Family History: Not pertinent
Allergies / Home Medications
Allergies reflects when Allergies were last updated in [email or web address].
Home Medications with original date entered in [email or web address]
Allergy/Medication List:
Allergies
Allergy/AdvReac Type Severity Reaction Status Date / Time
codeine Allergy bad dreams Verified 06/30/24 16:23
Home Medications
Vitamin D 300 mcg PO DAILY Supplement 05/15/20
amlodipine 10 mg tablet 10 mg PO DAILY Blood pressure 05/15/20
atorvastatin 80 mg tablet 80 mg PO QPM High cholesterol 05/15/20
canagliflozin 100 mg tablet (Invokana) 100 mg PO DAILY Diabetes 05/15/20
carvedilol 25 mg tablet (Coreg) 25 mg PO BID Blood pressure 05/15/20
metformin 500 mg tablet,extended release 24hr (osmotic) 1,000 mg PO BID Diabetes 05/15/20
ramipril 10 mg capsule 10 mg PO DAILY Blood pressure 05/15/20
aspirin 81 mg tablet,delayed release 81 mg PO DAILY Blood clot prevention/tx ##0 05/18/20
famotidine 20 mg tablet (Pepcid) 20 mg PO DAILY 06/30/24
levothyroxine 100 mcg tablet 100 mcg PO DAILY 06/30/24
Review of Systems
-
A 12 point ROS was completed and negative except as noted: Yes
Physical Exam
Vital Signs
Vital Signs
Temp Pulse Resp BP Pulse Ox
98.6 F 103 24 94/65 95
12/03/24 07:05 12/03/24 07:05 12/03/24 07:05 12/03/24 07:05 12/03/24 08:04
Physical Exam
General: No Apparent Distress
HEENT: Moist mucous membranes
Respiratory: Clear and Non Labored Respirations (tachypnea noted); No Accessory Resp Muscle Use
Cardiac: S1/S2, Regular Rhythm and Tachycardia
GI: Soft, Non Tender, Non Distended, Normal Bowel Sounds and Other (obese)
Musculoskeletal: Edema, Left Lower Extremity and Edema, Right Lower Extremity (2+ BL)
Neuro: AO x 3 and No Motor Deficits
Psych: Calm; No Confused or Agitated
Laboratory Results
-
12/03/24 06:38
12/03/24 06:38
Laboratory Results
APTT 29.0 Sec (23.4-35.0) 12/03/24 07:49
Total Bilirubin 1.3 mg/dl (0.2-1.3) 12/03/24 06:38
AST 36 U/L (17-59) 12/03/24 06:38
ALT 17 U/L (0-50) 12/03/24 06:38
Alkaline Phosphatase 133 U/L (38-126) H 12/03/24 06:38
Troponin I 0.056 ng/ml H* 12/03/24 06:38
Data Reviewed
-
CT Scan: Report Reviewed by me and Discussed with Physician (CT PE study with IR physician)
Lab Data: Labs Reviewed by me
Impression/Plan
-
Massive bilateral PE with RV strain, hypoxia, hypotension
Admit to ICU
Patient already initiated on IV heparin protocol in the ER
Discussed with the PERT team including pulmonary and IR-candidate for catheter directed thrombolysis-going to IR for the procedure.
Post PERT care per interventional radiology and pulmonary. CW IV heparin.
Urgent echocardiogram
Support with IV fluids if needed for hypotension. Large elevation in BNP is suspected secondary to RV failure. No history of heart failure. Chest clear and chest CT no evidence of pulm edema.
If goes into obstructive shock -start on vasopressors.
Heme test stools and follow H&H closely with a prior history of GI bleed.
Check ultrasound of the legs for DVT.
Lower extremity edema-chronic per patient-unclear etiology. Check echocardiogram, check ultrasound for DVT. MARIVEL stockings for now
History of GI bleed-history of peptic ulcer disease in the past. Patient currently on Protonix once a day -Will increase to twice a day for now. Last EGD in 2020 showed healed ulceration.
History of acute kidney injury in 2024
Chronic kidney disease stage IIIb (1.9 from 05/13)
Improved creatinine-today 1.3. Continue to follow closely.
History of chronic diarrhea-follow stool chart.
Diabetes mellitus type 2-hold Invokana and metformin controlled on sliding scale insulin
History of CAD s/p remote stenting in early -resume aspirin once off of tPA. Will reassume statins once stable.
Full code
Discussed with at bedside
--- NOTE | 2024-12-03 09:02 | EDRN ---
this RN called called the receiving ICU nurse Monique MAJANO and gave verbal report
[2024-12-03 09:26] LABS: INR 1.19; PT 15.6 Sec (11.4-14.6)
[2024-12-03] MEDS: CATHFLO/ACTIVASE 1000 MG INF CATH (10:14)
--- NOTE | 2024-12-03 11:04 | W.PN.UPDATE ---
Update Note
Progress Note Update
IR consulted for catheter directed thrombolysis in setting of submassive pulmonary embolism with findings of R heart strain on CT and elevated biomarkers. Acute shortness of breath developed yesterday with worsening overnight. Patient has chronic
leg swelling, worsened in the left leg over the past several months. Procedure explained in detail with patient and , including risks of internal bleeding. Denies recent surgery, GI bleeding, stroke. Patient severely ill with ashen appearance.
- Catheter directed thrombolysis initiated with 10cm infusion catheter placed into the R main pulmonary artery extending into RLL segmental branch.
- Pressures significantly elevated measuring 66/32 mmHg (map 32)
- 5 mg bolus of tPA administered followed by 1mg/hr infusion. Heparin at 600 units/hr.
--- NOTE | 2024-12-03 11:30 | PTCARENOTE ---
Pt transported from IR to ICU Rm [id number] via bed at 1045. Pt awake and Ox3, conversation appropriate. Received w/ Rt groin femoral sheath in place w/ alteplase infusing at 100ml/hr. Rt LE cool and slightly mottled- unchanged in appearance per RN caring
for pt in IR. Rt groin soft and w/o ecchymosis. Rt DP pulse palpable, Rt PT pulse by doppler. COURTROOM DEPUTY OR CALENDAR CLERK <2sec. Pt verbalized understanding of instructions for strict bedrest, flat HOB, no tilt of bed, and keeping Rt LE straight. Unable to safely
administer PO at this time. Dr Loving made aware. Pt received on 100% NRB w/ Pox 96-97%. Pt denies CP/pressure, reports SOB continues although states 'better' than when presented to hospital. Pt placed on midflow at 12L/min by Resp Therapy w/ Pox
95-97%. RR 26-32. Physical assessment completed as documented. Pt log rolled to remove excess bed linens and provide assessment and care. Heparin gtt started via peripheral IV site at 600 units/hr per order. Pt's to bedside- updated on pt's
present condition, plan of care. Questions answered and emotional support provided. Call carlyle w/in pt reach.
[2024-12-03] MEDS: MAGNESIUM SULFATE 50 IV (11:33)
[2024-12-03 11:36] LABS: Glucose - Point of Care 140 mg/dl (70-99)
[2024-12-03 12:14] LABS: INR 1.38; PT 17.5 Sec (11.4-14.6)
[2024-12-03 12:15] LABS: Fibrinogen 277 MG/DL (199-459)
[2024-12-03] MEDS: NOVOLOG FLEXPEN-LOW RESISTANCE SC (12:23)
[2024-12-03 12:31] LABS: Troponin I 0.088 ng/ml
--- NOTE | 2024-12-03 13:40 | PTCARENOTE ---
Attempt by Garth Bauer RN to place Danielle catheter- unable to advance completely. Kudae catheter obtained and Alfa Grissom RN placed x1 attempt w/ return of shiela urine. Pt tolerated procedure well. Pt reporting generalized lower back discomfort that he
states is 'usual' for him. Denies acute, increasing back discomfort as well as denies CP or SOB. Remains on O2 at 12l/min midflow w/ POx 97-99%. RR remains upper 20's to 32. Pt continues to lie flat in bed, w/o tilt. Comfort care provided. No
additional changes from previous assessment findings.
--- NOTE | 2024-12-03 14:50 | PTCARENOTE ---
Alteplase and Heparin infusions placed on hold per Dr Loving's order. Per Maxi MAJANO in IR pt for planned thrombectomy this afternoon.
--- NOTE | 2024-12-03 15:06 | CARDSERVLU ---
Echocardiogram with Lumason completed after protocol screening completed. Allergies verified.
Patent IV site: __left FA___
IV site flushed with 0.9% NaCl pre and post administration.
Diluted bolus method utilized to enhance visualization of ventricular hurtado.
Total volume given: ___6.0_ mL
Patient tolerated all procedures well without complications.
--- NOTE | 2024-12-03 15:43 | PTCARENOTE ---
Echo and LE US completed at bedside. Pt transported at 1530 to IR for planned thrombectomy. No new complaints received. Pt remains on O2 at 12l/min via Midflow w/ Pox 95-97%. to IR waiting room.
--- NOTE | 2024-12-03 18:02 | PTCARENOTE ---
Returned to room from IR. Gauze dressing to Rt groin d/i- No edema
--- NOTE | 2024-12-03 18:15 | PTCARENOTE ---
Pt's and daughter visiting at bedside. Pt POx 99% on O2 @ 12L/min via Midflow- decreased to 10l/min w/ POx 97-99%. Will monitor. Pt states breathing feels unchanged from earlier today although appears less labored and nose/ears no longer dusky
in appearance. Per order, pt remains flat HOB until 1845. ordered clear liquid dinner- pt taking sips of diet rhonda-jacques. Dr Gómez notified of urine output. Order for IVF ordered and started infusing.
[2024-12-03] MEDS: NSS 1000 IV (18:17)
[2024-12-03 18:45] LABS: Glucose - Point of Care 156 mg/dl (70-99)
--- NOTE | 2024-12-03 19:02 | W.PN.UPDATE ---
Update Note
Progress Note Update
- Patient taken down for lysis check earlier this evening and conversion to thrombectomy given patient limited ability to lie flat overnight. Breathing/vitals improved post initiation of cdt however felt given his clot burden would be premature to
discontinue therapy.
- 16F penumbra catheter used to perform suction thrombectomy of both the R and L main pulmonary arteries. Final images showed significantly improved clot burden within the R PA with residual non-occlusive thrombus centrally. Final pressure: 55/24
mmhg (map 36), improved from 66/33 (map 46) this morning. Assume there is also a component of chronic underlying pulm artery hypertension.
- Ok to resume heparin in 1 hr.
[2024-12-03] MEDS: NOVOLOG FLEXPEN-LOW RESISTANCE 1 UNITS SC (19:05)
--- NOTE | 2024-12-03 19:10 | PTCARENOTE ---
Heparin gtt restarted at 2000units/hr per order at 1900. Pt's HOB elevated to 30degrees. Handoff to oncoming shift RN. Pt w/o new complaints or changes noted.
[2024-12-03] MEDS: PROTONIX IV 40 MG IV (19:57)
[2024-12-03] MEDS: NSS (PRESERVATIVE FREE) 10 ML IV (19:57)
[2024-12-03 20:50] LABS: Troponin I 0.173 ng/ml
[2024-12-03 21:13] LABS: Glucose - Point of Care 178 mg/dl (70-99)
--- NOTE | 2024-12-03 22:03 | PTCARENOTE ---
Received patient at start of shift. Patient aao x3, able to make needs known, denies pain. NSR on the monitor, +2 b/l le edema noted, +pp however weak, pt pulses + with doppler b/l. Right femoral dressing c/d/i, no bleeding or shadowing noted, area
soft, non tender. Lung sounds diminished throughout 98-99% on 10L MF, tachypnea noted with RR low 20's, no sob noted at this time. Abd round, obese, non-tender bs active x4. Shirley cath draining dark yellow/tea colored urine to shirley bag, average
30ml/hr UO, will monitor. Left fa INT patent, right ac 20g with NSS and Heparin running continuous. Labs drawn. Call tadeo within reach, will continue to monitor patient closely.
[2024-12-04] VITALS (50 sets, daily range): BP systolic 90–130; BP diastolic 64–91; BMI 39.7
--- NOTE | 2024-12-04 00:15 | PTCARENOTE ---
Addendum entered by Miriam Brar RN 12/04/24 00:25:
Patient with decreased urine output, from 30ml/hr to 15ml/hr. Notified Funmi GOLDEN. Will continue to monitor.
Original Note:
Patient awakens to verbal stimuli, continues to deny pain throughout. Right femoral site remains c/d/i. Assessment overall unchanged. Call tadeo within reach, will continue to monitor patient closely.
[2024-12-04 02:29] LABS: APTT > 200 Sec (23.4-35.0)
--- NOTE | 2024-12-04 02:31 | PTCARENOTE ---
PTT >200, Heparin gtt on hold, Funmi GOLDEN notified. Will restart in 2 hours at 500u less.
[2024-12-04 02:46] LABS: Troponin I 0.135 ng/ml
[2024-12-04 04:53] LABS: Hematocrit 34.8 % (39.0-52.0); Hemoglobin 11.3 g/dL (13.0-18.0); Mean Corp Hgb Conc. 32.5 g/dL (33.0-37.0); Mean Corpuscular Volume 104.2 fL (80.0-94.0); Platelet Count 89 10^3/uL (130-400); Red Cell Dist. Width 15.8 % (11.5-14.5)
[2024-12-04] MEDS: SYNTHROID 100 MCG PO (04:55)
[2024-12-04] MEDS: HEPARIN 25000 UNITS/250 ML IV (04:55)
[2024-12-04 05:06] LABS: ALT (SGPT) 14 U/L (0-50); AST (SGOT) 25 U/L (17-59); Albumin 2.6 g/dl (3.5-5.0); Alkaline Phosphatase 107 U/L (38-126); Blood Urea Nitrogen 19 mg/dl (9-20); Calcium 7.0 mg/dl (8.4-10.2); Carbon Dioxide 23 mmol/L (22-30); Chloride 107 mmol/L (98-107); Estimated Creatinine Clearance 64 ml/min; Glucose 151 mg/dl (70-99); Magnesium 1.4 mg/dl (1.6-2.3); Potassium 4.6 mmol/L (3.5-5.1); Sodium 134 mmol/L (135-145); Total Protein 5.4 g/dl (6.3-8.2); eGFR 54.41
[2024-12-04] MEDS: CALCIUM GLUCONATE 130 MG IV (06:04)
[2024-12-04] MEDS: NSS 1000 IV ×2 (06:14→19:11)
[2024-12-04] MEDS: MAGNESIUM SULFATE 50 IV (07:07)
[2024-12-04 08:14] LABS: Glucose - Point of Care 149 mg/dl (70-99)
[2024-12-04 08:28] LABS: Glycohemoglobin (HgbA1c) 6.0 % (4.0-5.6)
--- NOTE | 2024-12-04 08:28 | W.PN.HOSP.TC ---
Today's Communication/Plan
-
continue IV heparin
IVF
wean O2
if no further procedures planned; diet and eventual PT/OT as clinically able
Assessment / Plan
Assessment / Plan
Assessment:
Massive bilateral PE with RV strain, hypoxia, hypotension
- CT: SEVERE ACUTE BILATERAL PULMONARY ARTERIAL EMBOLIC DISEASE with large pulmonary arterial emboli in both the right and left pulmonary arteries. ACUTE RIGHT HEART STRAIN and PULMONARY ARTERIAL HYPERTENSION
- US: nonocclusive thrombus within the mid left femoral vein and mid left popliteal vein. There is occlusive thrombus within the distal left femoral vein and throughout the left popliteal and peroneal veins, as well as within the proximal and distal
aspects of the left posterior tibial vein
- PERT alert in ER
- continue ICU level of care with gospel singer co-management
- Continue IV Heparin drip protocol
- s/p catheter directed thrombolysis (tPA) and mechanical thrombectomy (suction thrombectomy of both the R and L main pulmonary arteries) by IR
- Echo: Small left ventricle with normal systolic function; LVEF 60-65% by visual estimate. Severely dilated and hypokinetic right ventricle. There is relative sparing of systolic function in the RV apex consistent with right ventricular strain
(Louis's sign). Mild to moderate tricuspid regurgitation. Estimated pulmonary artery pressure of 59 mmHg assuming a right atrial pressure of 15 mmHg.
- Continue IVF for hypotension
- Elevated BNP related to RV failure acutely. No pulm edema on CT
- Monitor for pressor requirements
Acute hypoxic respiratory insufficiency in setting of PE
- wean O2 as able
Type 2 MS from demand mismatch from PE
- Trop peaked at .173
Lower extremity edema-chronic per patient-unclear etiology. echocardiogram as above. MARIVEL stockings for now. No evidence of chronic liver dysfunction, noted CKD stage 3b
History of GI bleed-history of peptic ulcer disease in the past. Patient currently on Protonix once a day - Will increase to twice a day for now. Last EGD in 2020 showed healed ulceration.
History of acute kidney injury in 2024
Chronic kidney disease stage IIIb (1.9 from 05/13)
- Cre 1.4; monitor UOP
History of chronic diarrhea - follow stool chart.
Diabetes mellitus type 2- hold Invokana and metformin controlled on sliding scale insulin. A1c is 6.0
History of CAD s/p remote stenting in early - resume aspirin once off of tPA. Will reassume statins once stable.
Hypomagnesemia and hypocalcemia - repleted via IV today. Repeat AM levels.
Acute thrombocytopenia
- likely consumptive from acute clot; monitor trends
Code: Full
Total Critical Care Time 41 minutes. I was immediately available to the patient and staff. I personally examined, reviewed labs, diagnostic images/reports, interpretations, treatment plans, discussed patient care with other providers and family
or caregivers (if patient is unable to make decisions), entered orders as appropriate and documented the medical record.
Anticipated Discharge: > 48 hours
Subjective/Interval History
-
Date of Service: December 04, 2024
reports SOB
No chest pain or palpitations
no fever/chills
Objective Data
-
Labs:
Laboratory Results
12/04/24 12/04/24 12/04/24
01:48 04:26 10:30
WBC 9.8
Hgb 11.3 L
Hct 34.8 L
Plt Count 89 L D
APTT > 200 H* Pending
Sodium 134 L
Potassium 4.6
Chloride 107
Carbon Dioxide 23
BUN 19
Creatinine 1.4 H
Glucose 151 H
Calcium 7.0 L
Total Bilirubin 1.0
AST 25
ALT 14
Alkaline Phosphatase 107
Vital Signs:
Vital Signs
Temp Pulse Resp BP Pulse Ox
97.0 F 86 21 118/72 99
12/04/24 08:00 12/04/24 08:00 12/04/24 08:00 12/04/24 08:00 12/04/24 08:00
I&O
12/03/24 12/04/24 12/05/24
06:59 06:59 06:59
Intake Total 1917 180 / 180
Output Total 310 / 310
Balance 1608 / 1698 180 / 180
Physical Exam
-
General: No Apparent Distress
HEENT: Normocephalic and Atraumatic
Respiratory: Negative Wheezes
Cardiac: Regular Rhythm and S1/S2
GI: Soft and Nontender
Genito-urinary: No Costovertebral Tender
Musculoskeletal: Edema, Right Lower Extrem, Edema, Left Lower Extrem and Other (LLE>RLE edema)
Neuro: AO x 3
Psych: Calm
Data Reviewed
-
Critical Care Time (in minutes): 41
Labs: Labs Reviewed by me
[2024-12-04] MEDS: NOVOLOG FLEXPEN-LOW RESISTANCE SC (09:02)
[2024-12-04] MEDS: VITAMIN B-12 1000 MCG PO (09:03)
[2024-12-04] MEDS: VITAMIN D3 (cholecalciferol) 25 MCG PO (09:03)
[2024-12-04] MEDS: PROTONIX IV 40 MG IV (09:03)
[2024-12-04] MEDS: NSS (PRESERVATIVE FREE) 10 ML IV (09:03)
--- NOTE | 2024-12-04 09:47 | W.PN.GENERIC ---
Assessment / Plan
-
69 yo male with massive PE and right heart strain s/p IR lysis and thrombectomy yesterday. Notes some imnprovement in dyspnea
Wean O2 as tolerated
Continue AC
I spent over 50 minutes in counseling and coordination of care with the patient, reviewing previous medical records, laboratory studies and all relevant imaging, including history taking, physical exam and documentation as well as discussing the
results of procedure and expected outcome.
Physician Progress Note
Subjective
69 yo male with history of CAD, status post cardiac stents in 2006, HTN, NIDDM and renal insufficiency presented to the ER yesterday for worsening shortness of breath over the past [address] scan he was found to have massive PE with right
heart strain. He had IR PE lysis yesterday morning and PE thrombectomy yesterday after noon. Patient also reports intermit episodes of diaphoresis. He is still SOB but reports some improvement. He is still on O2 NC. He has chronic LE edema no
worse than baseline. He denies chest pain, palpitations, fever, chills, nausea or vomiting.
Past History
Past History
HTN, Hypercholesterolemia, NIDDM and renal insufficiency
Social History
Personal:
Living: with family
Allergies:
Allergy/AdvReac Type Severity Reaction Status Date / Time
codeine Allergy bad dreams Verified 06/30/24 16:23
Home Medications
Vitamin D 300 mcg PO DAILY Supplement 05/15/20 amlodipine 10 mg tablet 10 mg PO DAILY Blood pressure 05/15/20 atorvastatin 80 mg tablet 80 mg PO QPM High cholesterol 05/15/20 canagliflozin 100 mg tablet (Invokana) 100 mg PO DAILY Diabetes 05/15/20
carvedilol 25 mg tablet (Coreg) 25 mg PO BID Blood pressure 05/15/20 metformin 500 mg tablet,extended release 24hr (osmotic) 1,000 mg PO BID Diabetes 05/15/20 ramipril 10 mg capsule 10 mg PO DAILY Blood pressure 05/15/20 aspirin 81 mg tablet,delayed
release 81 mg PO DAILY Blood clot prevention/tx ##0 05/18/20 famotidine 20 mg tablet (Pepcid) 20 mg PO DAILY 06/30/24 levothyroxine 100 mcg tablet 100 mcg PO DAILY 06/30/24
Objective
Vital Signs
Temp Pulse Resp BP Pulse Ox
97.0 F 88 20 113/78 99
12/04/24 08:00 12/04/24 09:30 12/04/24 09:30 12/04/24 09:00 12/04/24 09:30
Lab Results
12/04/24 04:26
12/04/24 04:26
This is an obese 69 yo male lying in bed. Appears SOB. Color is good. SKin warm and dry. Neck suple. Heart is regular. Abdomen is soft and nontender with bowel sounds. Right groin dressing CDI. Palpable inguinal pulse. No hemtoma. AA&O
[2024-12-04 11:41] LABS: APTT 166.4 Sec (23.4-35.0)
--- NOTE | 2024-12-04 12:00 | PTCARENOTE ---
Assessment unchanged from previous. Heparin gtt per protocol.
[2024-12-04 12:11] LABS: Glucose - Point of Care 193 mg/dl (70-99)
--- NOTE | 2024-12-04 12:41 | PN.CDI ---
CDI
- -
CDI:
Physician Documentation Request
Admit Date: 12/03/24 08:56
Dear Doctor Sherif,
Patient admitted with bilateral PE with RV strain, hypoxia and hypotension.
ECHO 12/03 shows 'severely dilated and hypokinetic right ventricle. There is relative sparing of systolic function in the RV apex consistent with right ventricular strain ..mild to moderate tricuspid regurgitation. Estimated pulmonary artery
pressure of 59 mmHg assuming a right atrial pressure of 15 mmHg.
Please clarify:
Bilateral pulmonary embolism with cor pulmonale
Bilateral pulmonary embolism without cor pulmonale
Other
Use of terms such as suspected, likely, concern for, or probable (associated with a specific diagnosis that is being evaluated, monitored, or treated as if it exists) are acceptable and can be coded in the inpatient setting, when documented at the
time of discharge.
Thank you,
Gunjan Tim RN, BSN
CDI Specialist
tiger text
Please use your independent medical judgment in providing your response.
--- NOTE | 2024-12-04 12:45 | PN.CDI ---
CDI
- -
CDI:
Physician Documentation Request
Admit Date: 12/03/24 08:56
Dear Doctor Sherif,
Patient admitted with Massive bilateral PE with RV strain, hypoxia, hypotension.
Respirations have been documented from -33 and patient on midflow nasal cannula.
Pulmonary consult states 'Acute hypoxic respiratory failure -Currently on mid flow with improved saturations, target O2 sat above 90% in view of pulmonary hypertension'
Hospitalist note states 'hypoxia.....Acute hypoxic respiratory insufficiency in setting of PE'
Please clarify which of the following accurately represents the patient's respiratory status:
Acute hypoxic respiratory failure
Hypoxia
Other
Additional information for Respiratory Failure:
Recognized criteria for Respiratory Failure (Source: Garth Merino. 2018January 08.
Documentation tips: Acute Respiratory Failure, The Hospitalist.)
ABGs: (1 or more) Symptoms Please indicate type if known
1. p)2 <60 or RA SPO2 <91% on RA 1. Tachypnea, SOB, dyspnea Hypoxic
2. pCO2 >45 and pH <7.35 2. Use of accessory muscles Hypercapnic
3. pO2 decrease of pCO2 increase by 3. Pallor or cyanosis Hypoxic and Hypercapnic
10 mmHg from baseline if known 4. Anxiety or restlessness Unable to determine
4. P/F Ratio (pO2/FiO2)nless than 300 5. Unable to speak in full sentences
Use of terms such as suspected, likely, concern for, or probable (associated with a specific diagnosis that is being evaluated, monitored, or treated as if it exists) are acceptable and can be coded in the inpatient setting, when documented at the
time of discharge.
Thank you,
Gunjan Tim RN, BSN
CDI Specialist
tiger text
Please use your independent medical judgment in providing your response.
[2024-12-04] MEDS: NOVOLOG FLEXPEN-LOW RESISTANCE 1 UNITS SC ×2 (12:59→17:58)
--- NOTE | 2024-12-04 13:20 | W.PN.INTV ---
Today's Communication / Plan
Recommendations
- Continue IV heparin
- Wean oxygen as tolerated, target above 90%
- Continue IV fluids, follow-up renal function testing in a.m
Assessment
-
Patient is a very pleasant 69-year-old gentleman who presents to the emergency room with shortness of breath. Patient reports that he first noticed shortness of breath on the morning of 12/02 when he walked in the morning. During the day he has
continued to felt poorly with episodes of dizziness and even near syncope. Overnight patient had progressively worsening shortness of breath and EMS was called. Patient was noted to be in respiratory distress with initial pulse oximetry in low
80s. Patient was started on supplemental oxygen, given nebulized treatment and brought to the emergency room. In the emergency room patient had borderline blood pressure along with tachycardia and mild respiratory distress. A chest x-ray was
performed followed by a CT PE protocol which was suggestive of bilateral pulmonary embolism with RV strain. Patient also noted to have elevated troponin and BNP. In view of hypoxia, patient was subsequently switched to mid flow supplemental
oxygen. In view of submassive pulmonary embolism, a PERT alert was called. Patient is being admitted to ICU in view of hypoxic respiratory failure and printed circuit boards plasma etcher consultation was requested for further input.
Patient has no prior history of pulmonary embolism. However he reports that there is strong family history of pulmonary embolism with his mother and sibling affected with VTE events. Patient frequently drives to [place] and 2 weeks ago had a
10-hour long car drive which likely is a provoking factor for underlying VTE event.
#1. Submassive bilateral pulmonary embolism with RV strain and LLE DVT
- PERT alert activated in ED, s/p heparin and then catheter directed thrombolysis and suction thrombectomy on 12/03 by IR service
- Continue heparin infusion.
- Oxygen requirement improving, now down to 8 L supplemental oxygen. Clinically reports feeling better, improving dyspnea.
- Echocardiogram suggestive of dilated RV with Louis sign. Elevated pulmonary pressures.
- Etiology of pulmonary embolism likely provoked or related to long road travel, 10-hour drive couple of weeks ago. Also reported strong family history of VTE events in patient's mother and sibling. Duration of anticoagulation to be determined.
Considering life-threatening nature of current VTE event, obesity, strong family history and likely persistence of provoking factors in future, will favor long-term anticoagulation in the absence of any contraindication.
- Will need outpatient follow-up with pulmonary clinic
#2. Acute hypoxic respiratory failure.
- Due to bilateral pulmonary embolism and RV strain
- Clinically improving, wean oxygen as tolerated
- Monitor closely in ICU,
#3. Pulmonary hypertension
- Echocardiogram suggestive of Louis sign with RV dysfunction related to acute PE
- Patient also is obese, at risk of having underlying sleep disordered breathing. Needs additional workup including pulmonary function testing and sleep study as outpatient
- Continue O2 support to keep saturation above 90%
- Hold off diuresis for now, anticipate initiating low-dose Lasix in 24 hours
#4. H/O CAD
- Reported PCI > 10 years ago.
- Continue telemetry monitoring
#5. Troponin leak, suspect Type II NSTEMI
- Suspect troponin is due to bilateral PE
- Serial Troponin.
- Continue Heparin infusion, telemetry and await ECHO
#6. Bilateral pedal edema
- BNP > 2700
- At risk of underlying CHF
- Hold diuresis for now considering borderline blood pressure
- Echo suggestive of pulmonary hypertension as well as Louis sign
#7. h/o PUD
- Reported h/o hematemesis close to 10 years ago
- Currently been on Pepcid, no active issues
- Continue PPI
#8. CKD stage III
- Cr slightly increased, IV fluids initiated
- At risk of contrast nephropathy
- Hold Metformin and Ramipril for now
- Labs in AM
#8. BMI 40.4
- At risk of sleep disordered breathing
- Can discuss regarding sleep study as out patient
Other medical diagnoses:
- DM
- HLD
- Hypothyroidism
Critical Care time 48 mins -- The patient is admitted for acute critical illness for the treatment of vital organ failure and/or prevention of further life-threatening conditions. Total care includes time spent in review of history, physical exam,
medications, hemodynamic/ventilator parameters, laboratory data, imaging and discussion with house staff, pharmacy, respiratory therapy, sales administration manager, and nursing.
Data:
EKG 11/2024: Sinus tachycardia with incomplete right bundle branch block. QTc prolonged at 559.
CT-PE 11/2024: 1. SEVERE ACUTE BILATERAL PULMONARY ARTERIAL EMBOLIC DISEASE with large pulmonary arterial emboli in both the right and left pulmonary arteries.
2. ACUTE RIGHT HEART STRAIN and PULMONARY ARTERIAL HYPERTENSION.
3. Chronic granulomatous disease infection.
4. Mild subsegmental atelectasis and scarring in both lungs.
5. Mild splenomegaly.
Subjective Dataa
Subjective Data
Date of Service:
Date of Service: December 04, 2024
Subjective:
Patient comfortably lying in bed in no acute distress.
Review of Systems
Genitourinary: Other (All 14 systems reviewed and negative except as stated above in the history of present illness.)
Objective Data
Data Reviewed
Vital Signs / I&O / Oxygen:
Vital Signs
Temp Pulse Resp BP Pulse Ox
97.9 F 88 20 113/78 99
12/04/24 12:00 12/04/24 09:30 12/04/24 09:30 12/04/24 09:00 12/04/24 10:13
Intake and Output
12/03/24 12/04/24 12/05/24
06:59 06:59 06:59
Intake Total 1917 1055 / 1055
Output Total 310 / 310 120 / 120
Balance 1608 / 1698 935 / 935
SaO2 99
Nasal Cannula flow liters per 8
minute
Physical Exam
General: Comfortable
HEENT: Normocephalic
Cardiovascular: S1-S2 and Peripheral Edema
Respiratory: Clear
GI: Soft and Non Distended
Neurology: Awake and Alert
Skin: Warm
Labs/Micro/Reports
Lab Data
12/04/24 04:26
12/04/24 04:26
Laboratory Results
12/03/24 12/03/24 12/04/24
14:00 18:00 01:48
PT Cancelled
INR Cancelled
APTT Cancelled > 200 H*
12/04/24
11:01
PT
INR
APTT 166.4 H*
--- NOTE | 2024-12-04 13:55 | CM ---
Initial assessment completed with patient with in room. Patient lives with in a 2 story home with no basement, no steps to enter. Patient sleeps on the 1st floor in a recliner with a full bath. Kitchen is on upper level. He has
difficulty with stairs due to painful knees. 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 In the house but not in use is a RW and self propelled w/ch. No in-home services. No HC-POA. No VA benefits. No
psychiatric hospitalizations. PCP is Dr. Tara Jim. Pharmacy is [facility] in [place]. Discharge POC: TBD. Anticipate MART RN.
--- NOTE | 2024-12-04 14:02 | PTCARENOTE ---
Pt AAOx3. One assist OOB to chair with walker. Reported feeling lightheaded when first sitting on side of the bed. Denies chest pain.
SpO2 98-99% on 7L NC at this time. Weaning O2 slowly as pt reports occasional SOB. Danielle d/c'd.
[2024-12-04 17:08] LABS: Glucose - Point of Care 173 mg/dl (70-99)
[2024-12-04] MEDS: PROTONIX 40 MG PO (19:11)
[2024-12-04 19:19] LABS: APTT 87.6 Sec (23.4-35.0)
--- NOTE | 2024-12-04 19:30 | PTCARENOTE ---
Patient oob to chair at start of shift. Patient aao x3, denies pain, affect pleasant, able to make needs known, call tadeo within reach. VSS, pox 99% on 4L o2 via MF, lung sounds diminished throughout, tachypnea noted with rr in mid 20's. Assessment
as documented. Patient continues on NSS and Heparin gtts. PTT within target range, will recheck around 01:30am and adjust as needed. Will continue to monitor patient closely.
[2024-12-04 21:11] LABS: Glucose - Point of Care 204 mg/dl (70-99)
--- NOTE | 2024-12-04 23:39 | PTCARENOTE ---
Patient noted to bed sob at rest, c/o being unable to get 'situated and comfortable'. RN assisted patient in repositioning, patient continues to be sob at rest, pox 97-99% on 4L O2 MF. Discussed with Funmi GOLDEN. N.O. to discontinue IVF; NSS at
75ml/hr. IVF discontinued per order. Patient confirmed breathing has improved, no sob noted at this time. Will continue to monitor patient closely.
[2024-12-05] VITALS (18 sets, daily range): BP systolic 95–144; BP diastolic 58–96; PULSE 101–105; O2SAT 93; BMI 38.2
[2024-12-05] MEDS: HEPARIN 25000 UNITS/250 ML IV (01:10)
[2024-12-05 01:51] LABS: APTT 148.2 Sec (23.4-35.0)
[2024-12-05 02:03] LABS: Hematocrit 30.0 % (39.0-52.0); Hemoglobin 10.0 g/dL (13.0-18.0); Mean Corp Hgb Conc. 33.3 g/dL (33.0-37.0); Mean Corpuscular Volume 98.0 fL (80.0-94.0); Platelet Count 84 10^3/uL (130-400); Red Cell Dist. Width 15.9 % (11.5-14.5)
[2024-12-05] MEDS: LOPRESSOR 2.5 MG IV ×2 (02:13→04:07)
--- NOTE | 2024-12-05 02:16 | PTCARENOTE ---
Patients HR has been in the 80's both last night and earlier this evening. RN noted HR in 110's-150's. Patient denies chest pain, dizziness, lightheadedness. EKG obtained, revealing Afib with RVR. Labs drawn and sent early. Reviewed with Funmi
CHANTEL. Metoprolol 1x dose ordered and administered at this time. HR 100's, will continue to monitor patient closely.
[2024-12-05 03:42] LABS: Calcium 7.7 mg/dl (8.4-10.2); Estimated Creatinine Clearance 73 ml/min; Glucose 148 mg/dl (70-99); Magnesium 1.9 mg/dl (1.6-2.3); Potassium 4.7 mmol/L (3.5-5.1); eGFR > 60.00
[2024-12-05 03:43] LABS: Blood Urea Nitrogen 22 mg/dl (9-20); Carbon Dioxide 18 mmol/L (22-30); Chloride 110 mmol/L (98-107); Sodium 133 mmol/L (135-145)
--- NOTE | 2024-12-05 03:58 | PTCARENOTE ---
Patient asymptomatic, however remains in afib with intermittent 2 second pauses. Discussed with Funmi GOLDEN. New order noted for 2.5mg metoprolol, will repleat Magnesium, and monitor patient closely.
[2024-12-05] MEDS: SYNTHROID 100 MCG PO (04:07)
[2024-12-05] MEDS: MAGNESIUM SULFATE 102 GRAMS IV (04:14)
[2024-12-05] MEDS: VITAMIN B-12 1000 MCG PO (07:58)
[2024-12-05] MEDS: VITAMIN D3 (cholecalciferol) 25 MCG PO (07:58)
[2024-12-05] MEDS: PROTONIX 40 MG PO ×2 (07:58→20:13)
--- NOTE | 2024-12-05 08:18 | W.PN.HOSP.TC ---
Today's Communication/Plan
-
Cardiology consult for A. Fib
continue IV Heparin
wean O2
PT/OT eval
Assessment / Plan
Assessment / Plan
Assessment:
Massive bilateral PE with RV strain, hypoxia, hypotension (Cor Pulmonale)
- CT: SEVERE ACUTE BILATERAL PULMONARY ARTERIAL EMBOLIC DISEASE with large pulmonary arterial emboli in both the right and left pulmonary arteries. ACUTE RIGHT HEART STRAIN and PULMONARY ARTERIAL HYPERTENSION
- US: nonocclusive thrombus within the mid left femoral vein and mid left popliteal vein. There is occlusive thrombus within the distal left femoral vein and throughout the left popliteal and peroneal veins, as well as within the proximal and distal
aspects of the left posterior tibial vein
- PERT alert in ER
- continue ICU level of care with camp boss co-management
- Continue IV Heparin drip protocol
- s/p catheter directed thrombolysis (tPA) and mechanical thrombectomy (suction thrombectomy of both the R and L main pulmonary arteries) by IR
- Echo: Small left ventricle with normal systolic function; LVEF 60-65% by visual estimate. Severely dilated and hypokinetic right ventricle. There is relative sparing of systolic function in the RV apex consistent with right ventricular strain
(Louis's sign). Mild to moderate tricuspid regurgitation. Estimated pulmonary artery pressure of 59 mmHg assuming a right atrial pressure of 15 mmHg.
- Continue IVF for hypotension
- Elevated BNP related to RV failure acutely. No pulm edema on CT
- Monitor for pressor requirements
Acute hypoxic respiratory failure in setting of PE
- wean O2 as able
Type 2 KS from demand mismatch from PE
- Trop peaked at .173
New onset A. Fib
- new diagnosis
- check TSH
- Continue IV Heparin drip protocol
- PRN Lopressor
- DCA Cards evaluation
Lower extremity edema-chronic per patient-unclear etiology. echocardiogram as above. No evidence of chronic liver dysfunction, noted CKD stage 3b
History of GI bleed-history of peptic ulcer disease in the past. Patient currently on Protonix once a day - Will increase to twice a day for now. Last EGD in 2020 showed healed ulceration.
History of acute kidney injury in 2024
Chronic kidney disease stage IIIb (1.9 from 05/13)
- Cre 1.3; monitor UOP
History of chronic diarrhea - follow stool chart.
Diabetes mellitus type 2- hold Invokana and metformin controlled on sliding scale insulin. A1c is 6.0
History of CAD s/p remote stenting in early - resume aspirin once off of tPA. Will reassume statins once stable.
Hypomagnesemia and hypocalcemia - repleted via; repeat levels improved
Acute thrombocytopenia
- likely consumptive from acute clot; monitor trends
Code: Full
Total Critical Care Time 42 minutes. I was immediately available to the patient and staff. I personally examined, reviewed labs, diagnostic images/reports, interpretations, treatment plans, discussed patient care with other providers and family
or caregivers (if patient is unable to make decisions), entered orders as appropriate and documented the medical record.
Anticipated Discharge: > 48 hours
Subjective/Interval History
-
Date of Service: December 05, 2024
A. Fib earlier this AM, HRs 110s, denies palpitations. received IV Metoprolol
reports less SOB, no chest pain
Objective Data
-
Labs:
Laboratory Results
12/05/24 12/05/24 12/05/24
01:28 01:51 03:08
WBC 6.2
Hgb 10.0 L
Hct 30.0 L
Plt Count 84 L
APTT 148.2 H
Sodium Cancelled 133 L
Potassium Cancelled 4.7
Chloride Cancelled 110 H
Carbon Dioxide Cancelled 18 L
BUN Cancelled 22 H
Creatinine Cancelled 1.2
Glucose Cancelled 148 H
Calcium Cancelled 7.7 L
12/05/24
09:00
WBC
Hgb
Hct
Plt Count
APTT Pending
Sodium
Potassium
Chloride
Carbon Dioxide
BUN
Creatinine
Glucose
Calcium
Vital Signs:
Vital Signs
Temp Pulse Resp BP Pulse Ox
98.2 F 110 25 112/78 99
12/05/24 07:57 12/05/24 08:00 12/05/24 08:00 12/05/24 08:00 12/05/24 08:00
I&O
12/04/24 12/05/24 12/06/24
06:59 06:59 06:59
Intake Total 1917 2243 / 2250
Output Total 310 / 310 240 / 240
Balance 1608 / 1698 2002
Physical Exam
-
General: No Apparent Distress
HEENT: Normocephalic and Atraumatic
Respiratory: Negative Wheezes
Cardiac: Irregular Rhythm
GI: Soft
Musculoskeletal: No Edema
Neuro: AO x 3
Psych: Calm
Data Reviewed
-
Critical Care Time (in minutes): 42
Labs: Labs Reviewed by me
[2024-12-05 09:30] LABS: Glucose - Point of Care 136 mg/dl (70-99)
[2024-12-05 09:41] LABS: APTT 36.6 Sec (23.4-35.0)
[2024-12-05] MEDS: NOVOLOG FLEXPEN-MODERATE RESISTANCE SC ×2 (09:46→13:37)
[2024-12-05] MEDS: HEPARIN 9700 UNITS IV ×2 (09:56→18:48)
--- NOTE | 2024-12-05 10:24 | PTCARENOTE ---
Rec'd care of patient at 0700. AAOx3. VSS. Afib on tele. Rate in the 90-110's. Up to the 120's with exertion. Weaned to 2L nc. Denies dyspnea. Heparin gtt infusing. Next PTT ordered for 1600. OOB to chair at 0800. Downgraded to tele level of care.
--- NOTE | 2024-12-05 11:02 | W.PN.INTV ---
Today's Communication / Plan
Recommendations
- DC IV fluids
- Initiate Lasix 20 mg IV daily
- Continue to wean oxygen as tolerated
- Continue heparin infusion, anticipate transition to Eliquis 10 mg twice daily starting 12/06
- Patient can be transferred out of ICU, to telemetry floor
- Pulmonary service will continue to follow along
Assessment
-
Patient is a very pleasant 69-year-old gentleman who presents to the emergency room with shortness of breath. Patient reports that he first noticed shortness of breath on the morning of 12/02 when he walked in the morning. During the day he has
continued to felt poorly with episodes of dizziness and even near syncope. Overnight patient had progressively worsening shortness of breath and EMS was called. Patient was noted to be in respiratory distress with initial pulse oximetry in low
80s. Patient was started on supplemental oxygen, given nebulized treatment and brought to the emergency room. In the emergency room patient had borderline blood pressure along with tachycardia and mild respiratory distress. A chest x-ray was
performed followed by a CT PE protocol which was suggestive of bilateral pulmonary embolism with RV strain. Patient also noted to have elevated troponin and BNP. In view of hypoxia, patient was subsequently switched to mid flow supplemental
oxygen. In view of submassive pulmonary embolism, a PERT alert was called. Patient is being admitted to ICU in view of hypoxic respiratory failure and water pump assembler consultation was requested for further input.
Patient has no prior history of pulmonary embolism. However he reports that there is strong family history of pulmonary embolism with his mother and sibling affected with VTE events. Patient frequently drives to [place] and 2 weeks ago had a
10-hour long car drive which likely is a provoking factor for underlying VTE event.
#1. Submassive bilateral pulmonary embolism with RV strain and LLE DVT
- PERT alert activated in ED, s/p heparin and then catheter directed thrombolysis and suction thrombectomy on 12/03 by IR service
- Continue heparin infusion.
- Oxygen requirement improving, now down to 2 L supplemental oxygen. Clinically reports feeling better, improving dyspnea.
- Echocardiogram suggestive of dilated RV with Louis sign. Elevated pulmonary pressures.
- Etiology of pulmonary embolism likely provoked or related to long road travel, 10-hour drive couple of weeks ago. Also reported strong family history of VTE events in patient's mother and sibling. Duration of anticoagulation to be determined.
Considering life-threatening nature of current VTE event, obesity, strong family history and likely persistence of provoking factors in future, will favor long-term anticoagulation in the absence of any contraindication.
- Will need outpatient follow-up with pulmonary clinic
- Can transfer to telemetry floor, anticipate transition to p.o. Eliqu starting 12/06
#2. Acute hypoxic respiratory failure.
- Due to bilateral pulmonary embolism and RV strain
- Clinically improving, wean oxygen as tolerated
- Down to 2 L supplemental oxygen, saturating 96%. Continue to wean
#3. Pulmonary hypertension
- Echocardiogram suggestive of Louis sign with RV dysfunction related to acute PE
- Patient also is obese, at risk of having underlying sleep disordered breathing. Needs additional workup including pulmonary function testing and sleep study as outpatient
- Continue O2 support to keep saturation above 90%
- Considering continued hemodynamic stability, likely will benefit from diuresis. Cardiology consult pending
#4. H/O CAD
- Reported PCI > 10 years ago.
- Continue telemetry monitoring
#5. Troponin leak, suspect Type II NSTEMI
- Suspect troponin is due to bilateral PE
- Serial Troponin.
- Continue Heparin infusion, telemetry and await ECHO
#6. Bilateral pedal edema
- BNP > 2700
- Echo suggestive of pulmonary hypertension as well as Louis sign
- Discontinue IV fluids since renal function is improving
#7. h/o PUD
- Reported h/o hematemesis close to 10 years ago
- Currently been on Pepcid, no active issues
- Continue PPI
#8. CKD stage III
- Creatinine improved after initial rise to 1.4, responded well to IV fluids
- At risk of contrast nephropathy
- Hold Metformin and Ramipril for now
- Discontinue IV fluids, initiate low-dose diuretics
#8. BMI 40.4
- At risk of sleep disordered breathing
- Can discuss regarding sleep study as out patient
#9. Paroxysmal A fib with RVR
- S/p as needed IV Lopressor overnight
- Cardiology consult
Other medical diagnoses:
- DM
- HLD
- Hypothyroidism
Critical Care time 38 mins -- The patient is admitted for acute critical illness for the treatment of vital organ failure and/or prevention of further life-threatening conditions. Total care includes time spent in review of history, physical exam,
medications, hemodynamic/ventilator parameters, laboratory data, imaging and discussion with house staff, pharmacy, respiratory therapy, classroom technology technician, and nursing.
Data:
EKG 11/2024: Sinus tachycardia with incomplete right bundle branch block. QTc prolonged at 559.
CT-PE 11/2024: 1. SEVERE ACUTE BILATERAL PULMONARY ARTERIAL EMBOLIC DISEASE with large pulmonary arterial emboli in both the right and left pulmonary arteries.
2. ACUTE RIGHT HEART STRAIN and PULMONARY ARTERIAL HYPERTENSION.
3. Chronic granulomatous disease infection.
4. Mild subsegmental atelectasis and scarring in both lungs.
5. Mild splenomegaly.
Subjective Dataa
Subjective Data
Date of Service:
Date of Service: December 05, 2024
Subjective:
Patient comfortably sitting in bed in no acute distress. Overall reports feeling better
Review of Systems
Genitourinary: Other (No new symptoms reported)
Objective Data
Data Reviewed
Vital Signs / I&O / Oxygen:
Vital Signs
Temp Pulse Resp BP Pulse Ox
98.2 F 111 24 104/72 93
12/05/24 07:57 12/05/24 10:00 12/05/24 10:00 12/05/24 10:00 12/05/24 10:09
Intake and Output
12/04/24 12/05/24 12/06/24
06:59 06:59 06:59
Intake Total 1917 2243 / 2250 513 / 513
Output Total 310 / 310 240 / 240 100 / 100
Balance 1608 / 1698 2002 413 / 413
SaO2 93
Nasal Cannula flow liters per 2
minute
Physical Exam
General: Comfortable
HEENT: Normocephalic
Cardiovascular: S1-S2 and Peripheral Edema
Respiratory: Clear
GI: Soft and Non Distended
Neurology: Awake and Alert
Skin: Warm
Labs/Micro/Reports
Lab Data
12/05/24 01:51
12/05/24 03:08
Laboratory Results
12/04/24 12/04/24 12/05/24
11:01 18:23 01:28
APTT 166.4 H* 87.6 H 148.2 H
12/05/24
09:17
APTT 36.6 H
[2024-12-05] MEDS: LASIX 20 MG IV (11:19)
--- NOTE | 2024-12-05 13:02 | TRANSFER ---
Patient transported via wheelchair to . Heparin gtt infusing. Around 1130, patient converted to NSR, 80's. 20mg IV Lasix administered as ordered. Urine output increased.
[2024-12-05 13:27] LABS: Glucose - Point of Care 147 mg/dl (70-99)
--- NOTE | 2024-12-05 13:36 | CON.CAR ---
Addendum entered and electronically signed by Beau Meng MD 12/05/24 16:30:
I saw and examined the patient independently and performed majority of MDM.
The CODING DIRECTOR's note was reviewed and I agree with the note with changes/additions below.
Comment: 69 yo male with PMH of CAD s/p RCA stents 2006 admitted with SOB and found to have submassive bilateral PE and new Afib with RVR. MALCOLM is better s/p lysis and thrombectomy 12/03. Exam with RRR, no murmurs, 2+ LE edema. Echo: shows pulm HTN
and RV strain. Tele: Afib-->NSR.
A fib with RVR, new, paroxysmal
-back in sinus
-BP is low: coreg held; trend BP, and resume coreg vs metoprolol based on BP trend
-he is on AC for PE, which will cover A fib
-CHADS2-VASC = 2.
CAD
-stable, no angina
-no longer needs ASA once on eliquis for PE and A fib
Original Note:
Consultation
Consultation Request
Date/Time Consultation Requested: 12/05/24 9a
Date/Time Consultation Performed: 12/05/24 12p
Requesting Provider: Dr. Gorman
Performing Provider: CHANTEL Hernandez for Dr. Meng
Reason for Consultation: Afib, PE, DVT
Medical History
-
Chief Complaint: SOB
History of Present Illness:
Mr. Mcdaniels is a 69 yo male with CAD (tandem RCA PCI 2006), HTN, HLD, obesity and DM, who presented to the ER with c/o SOB and dizziness. He was noted to have b/l pulmonary embolus and was admitted by hospitalist. He also has DVT and went into
Afib with RVR at 1:30am today. He are consulted for new onset Afib RVR, EKG with rate 118 bpm. He denies feeling any palpitations and SOB has improved. He is on IV Heparin and received IV Lopressor. He is now in NSR 80s.
Past Medical History
Past Medical History: Other (as above)
Social History
Tobacco: Non-Smoker
Alcohol: Daily (2 whiskey drinks )
Personal:
Living: With Family
Employment: Retired
Family History
Family History: Reviewed & Not Pertinent
Allergies / Home Medications
Allergy/AdvReac Type Severity Reaction Status Date / Time
codeine AdvReac bad dreams Verified 12/04/24 17:04
�Medication �Instructions �Recorded �Confirmed �Type
canagliflozin 100 mg tablet 100 mg PO DAILY Diabetes 05/15/20 12/03/24 History
(Invokana)
Held on 07/04/24.
Instructions: Resume on
07/18/24. Hold Invokana until
you see your primary care
physician, and follow-up with
your recordist chief.
carvedilol 25 mg tablet (Coreg) 25 mg PO BID Blood pressure 05/15/20 12/03/24 History
metformin 500 mg tablet,extended 1,000 mg PO BID Diabetes 05/15/20 12/03/24 History
release 24hr (osmotic)
ramipril 10 mg capsule 10 mg PO DAILY Blood pressure 05/15/20 12/03/24 History
aspirin 81 mg tablet,delayed 81 mg PO DAILY Blood clot 05/18/20 12/03/24 Rx
release prevention/tx ##0
cyanocobalamin (vitamin B-12) 1,000 mcg PO DAILY 30 days #30 tabs 07/04/24 12/03/24 Rx
1,000 mcg tablet (Vitamin B-12)
atorvastatin 80 mg tablet (Lipitor) 80 mg PO DAILY High Cholesterol 12/03/24 12/03/24 History
cholecalciferol (vitamin D3) 25 25 mcg PO DAILY Supplement 12/03/24 12/03/24 History
mcg (1,000 unit) tablet (Vitamin
D3)
levothyroxine 100 mcg tablet 100 mcg PO DAILY Thyroid 12/03/24 12/03/24 History
pantoprazole 20 mg tablet,delayed 20 mg PO DAILY Gastrointestinal 12/03/24 12/03/24 History
release Issue
Review of Systems
-
History Source: Patient
All other systems: Negative unless noted
Physical Exam
Vital Signs
Temp Pulse Resp BP Pulse Ox
98.2 F 99 19 99/79 91
12/05/24 07:57 12/05/24 11:19 12/05/24 11:17 12/05/24 11:19 12/05/24 11:17
Lab Results
12/05/24 01:51
12/05/24 03:08
Troponin I 0.135 ng/ml H* 12/04/24 01:48
Mho-D-Pmjehquxuii Pept > 31046 pg/ml 12/03/24 06:38
Physical Exam
General: Well Developed and Well Nourished
HEENT: Normocephalic and Anicteric
Respiratory: Non Labored Respirations (diminished bibasilar)
Cardiac: S1/S2 and Regular Rhythm
Breast: Deferred by me
GI: Soft, Non Tender and Normal Bowel Sounds
Rectal: Deferred by Provider
Genito-urinary: Clear Urine
Musculoskeletal: No Clubbing and No Cyanosis
Skin: Warm and Dry
Neuro: AO x 3
Psych: Calm
Impression / Plan
-
Afib - new onset 12/05/24 with RVR.
- rates improved with IV Lopressor then converted to NSR.
- IV Lopressor PRN ordered due to baseline hypotension currently, asymptomatic. (he is on Coreg 25mg BID at home).
- on IV Heparin for b/l PE and DVT.
- transition to DOAC.
Pulmonary embolism - severe b/l.
- s/p lysis and thrombectomy by IR.
- IV Heparin.
- pulmonary following.
CAD - stable w/o angina.
- s/p tandem RCA PCI 2006.
- followed up with [facility] cardiology for a couple years after PCI but has not seen cardiology in 'years'.
- abnormal troponin peak 0.173, acute non-ischemic myocardial injury in the setting of acute PE/DVT/rapid Afib.
HTN - mild hypotension with acute illness.
- holding outpatient meds.
- monitor.
echo 12/03/24: Small left ventricle with normal systolic function; LVEF 60-65% by visual estimate. Severely dilated and hypokinetic right ventricle. There is relative sparing of systolic function in the RV apex consistent with right ventricular
strain (Louis's sign). Mild to moderate tricuspid regurgitation. Estimated pulmonary artery pressure of 59 mmHg assuming a right atrial pressure of 15 mmHg.
Data Reviewed
-
EKG: Tracing Personally Visualized and interpreted (Afib 118 bpm )
Medical Tests (Nuc Med, Echo etc): Report Reviewed by me (echo 12/03/24 as above)
Labs: Labs Reviewed by me
Old Records: Reviewed
--- NOTE | 2024-12-05 14:19 | CM ---
Transferred to Room 415-2. Cardiology consult for new A-Fib, New IV/Lasix daily, wean O2, will transition from heparin to Eliquis 12/06/24. Discharge POC: Home with [facility] RN, PT/OT.
[2024-12-05 16:45] LABS: Glucose - Point of Care 179 mg/dl (70-99)
[2024-12-05] MEDS: NOVOLOG FLEXPEN-MODERATE RESISTANCE 1 UNITS SC (16:50)
[2024-12-05 18:37] LABS: APTT 62.3 Sec (23.4-35.0)
[2024-12-05 21:38] LABS: Glucose - Point of Care 197 mg/dl (70-99)
[2024-12-06] MEDS: HEPARIN 25000 UNITS/250 ML IV (01:31)
[2024-12-06 02:08] LABS: APTT > 200 Sec (23.4-35.0)
[2024-12-06 03:18] VITALS: BP 144/92
[2024-12-06] MEDS: SYNTHROID 100 MCG PO (06:08)
[2024-12-06 07:00] VITALS: BP 138/85
[2024-12-06 07:23] LABS: Glucose - Point of Care 153 mg/dl (70-99)
[2024-12-06] MEDS: NOVOLOG FLEXPEN-MODERATE RESISTANCE 1 UNITS SC ×2 (08:13→16:59)
[2024-12-06] MEDS: VITAMIN B-12 1000 MCG PO (08:14)
[2024-12-06] MEDS: PROTONIX 40 MG PO ×2 (08:14→21:48)
[2024-12-06] MEDS: VITAMIN D3 (cholecalciferol) 25 MCG PO (08:14)
[2024-12-06] MEDS: LASIX 20 MG IV ×2 (08:14→15:43)
[2024-12-06 10:52] LABS: Hematocrit 33.5 % (39.0-52.0); Hemoglobin 10.7 g/dL (13.0-18.0); Mean Corp Hgb Conc. 31.9 g/dL (33.0-37.0); Mean Corpuscular Volume 105.0 fL (80.0-94.0); Platelet Count 94 10^3/uL (130-400); Red Cell Dist. Width 15.8 % (11.5-14.5)
[2024-12-06 10:56] LABS: APTT 55.0 Sec (23.4-35.0)
[2024-12-06 11:00] VITALS: BP 126/74
[2024-12-06 11:09] LABS: Blood Urea Nitrogen 27 mg/dl (9-20); Calcium 8.5 mg/dl (8.4-10.2); Carbon Dioxide 25 mmol/L (22-30); Chloride 106 mmol/L (98-107); Estimated Creatinine Clearance 73 ml/min; Glucose 234 mg/dl (70-99); Potassium 4.2 mmol/L (3.5-5.1); Sodium 136 mmol/L (135-145); eGFR > 60.00
[2024-12-06] MEDS: ELIQUIS 10 MG PO ×2 (11:35→21:47)
[2024-12-06 12:06] LABS: Glucose - Point of Care 211 mg/dl (70-99)
[2024-12-06] MEDS: NOVOLOG FLEXPEN-MODERATE RESISTANCE 3 UNITS SC (12:16)
--- NOTE | 2024-12-06 12:28 | W.PN.HOSP.TC ---
Today's Communication/Plan
-
Switch IV heparin to oral Eliquis today
Continue with IV Lasix
Assessment / Plan
Assessment / Plan
Assessment:
Massive bilateral PE with RV strain, hypoxia, hypotension (Acute Cor Pulmonale)
- CT: SEVERE ACUTE BILATERAL PULMONARY ARTERIAL EMBOLIC DISEASE with large pulmonary arterial emboli in both the right and left pulmonary arteries. ACUTE RIGHT HEART STRAIN and PULMONARY ARTERIAL HYPERTENSION
- US: nonocclusive thrombus within the mid left femoral vein and mid left popliteal vein. There is occlusive thrombus within the distal left femoral vein and throughout the left popliteal and peroneal veins, as well as within the proximal and distal
aspects of the left posterior tibial vein
- PERT alert in ER
- Continue AC -switch from IV heparin to Eliquis today
- s/p catheter directed thrombolysis (tPA) and mechanical thrombectomy (suction thrombectomy of both the R and L main pulmonary arteries) by IR
- Echo: Small left ventricle with normal systolic function; LVEF 60-65% by visual estimate. Severely dilated and hypokinetic right ventricle. There is relative sparing of systolic function in the RV apex consistent with right ventricular strain
(Louis's sign). Mild to moderate tricuspid regurgitation. Estimated pulmonary artery pressure of 59 mmHg assuming a right atrial pressure of 15 mmHg.
- Elevated BNP related to RV failure acutely. No pulm edema on CT
- Monitor for pressor requirements
Acute hypoxic respiratory failure in setting of PE
- resolved .Off of O2 now.
Type 2 NH from demand mismatch from PE
- Trop peaked at .173
New onset A. Fib
- new diagnosis
- normal TSH
- Continue AC
- PRN Lopressor
- DCA Cards evaluation
Lower extremity edema-chronic per patient-unclear etiology. echocardiogram as above. No evidence of chronic liver dysfunction, noted CKD stage 3b. CW Lasix and follow response
History of GI bleed-history of peptic ulcer disease in the past. Patient currently on Protonix once a day - Will increase to twice a day for now. Last EGD in 2020 showed healed ulceration. HH stable.
History of acute kidney injury in 2024
Chronic kidney disease stage IIIb (1.9 from 05/13)
- Cr 1.2; monitor UOP
History of chronic diarrhea - follow stool chart.
Diabetes mellitus type 2- hold Invokana and metformin controlled on sliding scale insulin. A1c is 6.0
History of CAD s/p remote stenting in early - resume aspirin once off of tPA. Will reassume statins once stable.
Acute thrombocytopenia
- likely consumptive from acute clot; monitor trends
Code: Full
Discussed with RN
Anticipated Discharge: > 48 hours
Subjective/Interval History
-
Date of Service: December 06, 2024
Feels better with the breathing. Denies any chest pain.
Spoke with the a lot of lower extremity edema.
Denies any nausea vomiting. Denies any dizziness.
Objective Data
-
Labs:
Laboratory Results
12/06/24 12/06/24 12/06/24
00:48 01:40 10:30
WBC 4.4 L
Hgb 10.7 L
Hct 33.5 L
Plt Count 94 L
APTT Cancelled > 200 H* 55.0 H
Sodium 136
Potassium 4.2
Chloride 106
Carbon Dioxide 25
BUN 27 H
Creatinine 1.2
Glucose 234 H
Calcium 8.5
12/06/24
12:45
WBC
Hgb
Hct
Plt Count
APTT Cancelled
Sodium
Potassium
Chloride
Carbon Dioxide
BUN
Creatinine
Glucose
Calcium
Vital Signs:
Vital Signs
Temp Pulse Resp BP Pulse Ox
97.9 F 74 18 126/74 98
12/06/24 11:00 12/06/24 11:00 12/06/24 11:00 12/06/24 11:00 12/06/24 11:00
I&O
12/05/24 12/06/24 12/07/24
06:59 06:59 06:59
Intake Total 2243 / 2250 1257 / 1257
Output Total 240 / 240 1450 / 1450
Balance 2002 -193 / -193
Physical Exam
-
General: Comfortable
Respiratory: Clear to Auscultation and Non Labored Respirations; Negative Accessory Resp Muscle Use
Cardiac: Regular Rhythm and S1/S2
Musculoskeletal: Edema, Right Lower Extrem and Edema, Left Lower Extrem (2+ BL)
Neuro: AO x 3
Psych: Calm
Data Reviewed
-
Labs: Labs Reviewed by me
[2024-12-06 15:00] VITALS: BP 122/64
--- NOTE | 2024-12-06 15:23 | W.PN.PUL3 ---
Today's Communication / Plan
-
- Increase IV lasix to 20 mg IV BID
- Discharge planning
- Assess for need for Home O2
Assessment
-
Patient is a very pleasant 69-year-old gentleman who presents to the emergency room with shortness of breath. Patient reports that he first noticed shortness of breath on the morning of 12/02 when he walked in the morning. During the day he has
continued to felt poorly with episodes of dizziness and even near syncope. Overnight patient had progressively worsening shortness of breath and EMS was called. Patient was noted to be in respiratory distress with initial pulse oximetry in low
80s. Patient was started on supplemental oxygen, given nebulized treatment and brought to the emergency room. In the emergency room patient had borderline blood pressure along with tachycardia and mild respiratory distress. A chest x-ray was
performed followed by a CT PE protocol which was suggestive of bilateral pulmonary embolism with RV strain. Patient also noted to have elevated troponin and BNP. In view of hypoxia, patient was subsequently switched to mid flow supplemental
oxygen. In view of submassive pulmonary embolism, a PERT alert was called. Patient is being admitted to ICU in view of hypoxic respiratory failure and wound treatment rn consultation was requested for further input.
Patient has no prior history of pulmonary embolism. However he reports that there is strong family history of pulmonary embolism with his mother and sibling affected with VTE events. Patient frequently drives to [place] and 2 weeks ago had a
10-hour long car drive which likely is a provoking factor for underlying VTE event.
#1. Submassive bilateral pulmonary embolism with RV strain and LLE DVT
- PERT alert activated in ED, s/p heparin and then catheter directed thrombolysis and suction thrombectomy on 12/03 by IR service
- 12/06, heparin transition to Eliquis 10 mg twice daily
- Oxygen weaned off, currently doing well on room air
- Echocardiogram suggestive of dilated RV with Louis sign. Elevated pulmonary pressures.
- Etiology of pulmonary embolism likely provoked or related to long road travel, 10-hour drive couple of weeks ago. Also reported strong family history of VTE events in patient's mother and sibling. Duration of anticoagulation to be determined.
Considering life-threatening nature of current VTE event, obesity, strong family history and likely persistence of provoking factors in future, will favor long-term anticoagulation in the absence of any contraindication.
- Will need outpatient follow-up with pulmonary clinic
#2. Acute hypoxic respiratory failure.
- Due to bilateral pulmonary embolism and RV strain
- Clinically improving, saturating well on room air
- Assess for need for home O2, with activity particularly
#3. Pulmonary hypertension
- Echocardiogram suggestive of Louis sign with RV dysfunction related to acute PE
- Patient also is obese, at risk of having underlying sleep disordered breathing. Needs additional workup including pulmonary function testing and sleep study as outpatient
- Continue O2 support to keep saturation above 90%
- Considering continued hemodynamic stability, likely will benefit from diuresis. Cardiology consult pending
#4. H/O CAD
- Reported PCI > 10 years ago.
- Continue telemetry monitoring
#5. Troponin leak, suspect Type II NSTEMI
- Suspect troponin is due to bilateral PE
- Serial Troponin.
- Continue Heparin infusion, telemetry and await ECHO
#6. Bilateral pedal edema
- BNP > 2700
- Echo suggestive of pulmonary hypertension as well as Louis sign
- 2-3+ bilateral pitting edema. Increase Lasix to 20 mg IV twice daily
#7. h/o PUD
- Reported h/o hematemesis close to 10 years ago
- Currently been on Pepcid, no active issues
- Continue PPI
#8. CKD stage III
- Creatinine improved after initial rise to 1.4, responded well to IV fluids
- At risk of contrast nephropathy
- Holding Metformin and Ramipril for now
- Discontinued IV fluids, initiate low-dose diuretics
#8. BMI 40.4
- At risk of sleep disordered breathing
- Can discuss regarding sleep study as out patient
#9. Paroxysmal A fib with RVR
- S/p as needed IV Lopressor overnight
- Cardiology consult
Other medical diagnoses:
- DM
- HLD
- Hypothyroidism
Total time spent on this consultation/encounter __42__ minutes which includes review of history, physical exam, medications, laboratory data, personal review of imaging, extensive review of outpatient records, discussion with care team and
respiratory therapy.
Data:
EKG 11/2024: Sinus tachycardia with incomplete right bundle branch block. QTc prolonged at 559.
CT-PE 11/2024: 1. SEVERE ACUTE BILATERAL PULMONARY ARTERIAL EMBOLIC DISEASE with large pulmonary arterial emboli in both the right and left pulmonary arteries.
2. ACUTE RIGHT HEART STRAIN and PULMONARY ARTERIAL HYPERTENSION.
3. Chronic granulomatous disease infection.
4. Mild subsegmental atelectasis and scarring in both lungs.
5. Mild splenomegaly.
Subjective Data
-
Date of Service:
Date of Service: December 06, 2024
Subjective:
Comfortably sitting in chair in no acute distress. Noted to be on room air today
Review of Systems
Cardiopulmonary: Edema
Genitourinary: Other (All 14 systems reviewed and negative except as stated above in the history of present illness.)
Objective Data
Data Reviewed
Vital Signs / I&O / Oxygen:
Vital Signs
Temp Pulse Resp BP Pulse Ox
97.9 F 74 18 126/74 98
12/06/24 11:00 12/06/24 11:00 12/06/24 11:00 12/06/24 11:00 12/06/24 11:00
Intake and Output
12/05/24 12/06/24 12/07/24
06:59 06:59 06:59
Intake Total 2243 / 2250 1257 / 1257
Output Total 240 / 240 1450 / 1450
Balance 2002 -193 / -193
SaO2 98
Nasal Cannula flow liters per 2
minute
Physical Exam
General: Comfortable
HEENT: Normocephalic
Cardiovascular: S1-S2 and Peripheral Edema (2-3+)
Respiratory: Clear and Non-Labored Respirations
GI: Soft and Non Distended
Neurology: Awake and Alert
Skin: Warm
Labs/Micro/Reports
Lab Data
12/06/24 10:30
12/06/24 10:30
Laboratory Results
12/05/24 12/06/24 12/06/24
00:48 01:40
APTT 62.3 H Cancelled > 200 H*
12/06/24 12/06/24
10 12:45
APTT 55.0 H Cancelled
--- NOTE | 2024-12-06 16:36 | W.PN.CD ---
Today's Communication / Plan
-
continue eliquis
continue IV lasix
start Toprol XL
Impression / Plan
-
Afib - new onset 12/05/24 with RVR.
- rates improved with IV Lopressor then converted to NSR.
- BP was low initially, now better: start Toprol XL 25mg qHS
-on eliquis for PE
Pulmonary embolism - severe b/l.
- s/p lysis and thrombectomy by IR.
- pulmonary following.
-on eliquis
Acute HF, right sided in setting of PE
-continue IV lasix with close monitoring of labs/tele
CAD - stable w/o angina.
- s/p tandem RCA PCI 2006.
- followed up with [facility] cardiology for a couple years after PCI but has not seen cardiology in 'years'.
- abnormal troponin peak 0.173, acute non-ischemic myocardial injury in the setting of acute PE/DVT/rapid Afib.
HTN - was on coreg as outpatient, but BP lower, so started Toprol XL
echo 12/03/24: Small left ventricle with normal systolic function; LVEF 60-65% by visual estimate. Severely dilated and hypokinetic right ventricle. There is relative sparing of systolic function in the RV apex consistent with right ventricular
strain (Louis's sign). Mild to moderate tricuspid regurgitation. Estimated pulmonary artery pressure of 59 mmHg assuming a right atrial pressure of 15 mmHg.
Physical Exam
Vital Signs/Labs
Vital Signs
Temp Pulse Resp BP Pulse Ox
98.0 F 79 18 122/64 96
12/06/24 15:00 12/06/24 15:00 12/06/24 15:00 12/06/24 15:00 12/06/24 15:00
12/05/24 12/06/24 12/07/24
06:59 06:59 06:59
Actual Weight 117.4 kg
12/06/24 10:30
12/06/24 10:30
PT Cancelled 12/03/24 18:00
INR Cancelled 12/03/24 18:00
APTT Cancelled 12/06/24 12:45
Magnesium 1.9 mg/dl (1.6-2.3) 12/05/24 03:08
12/03/24
06:38
Nzo-B-Iuruqnxxwgg Pept > 70987
LAB Results
12/03/24 12/04/24
20:10 01:48
Troponin I 0.173 H* 0.135 H*
Physical Exam
Constitutional: No acute distress and Comfortable
EENT: Moist mucous membranes
Cardiovascular: Rhythm & rate is regular, Systolic murmur absent, Pedal edema present and JVD present
Respiratory: Respiratory effort normal
Neuro/Psych: AO x 3
Data Reviewed
-
Date of Service: December 06, 2024
EKG: Other (Tele: SR, brief SVT)
Labs: Labs Reviewed by me
[2024-12-06 16:53] LABS: Glucose - Point of Care 184 mg/dl (70-99)
[2024-12-06 20:00] VITALS: BP 124/76
[2024-12-06 21:37] LABS: Glucose - Point of Care 196 mg/dl (70-99)
[2024-12-06] MEDS: TOPROL XL 25 MG PO (21:50)
[2024-12-06 23:17] VITALS: BP 138/89
[2024-12-07 03:00] VITALS: BP 130/74
[2024-12-07] MEDS: SYNTHROID 100 MCG PO (05:25)
[2024-12-07 06:33] LABS: Hematocrit 30.5 % (39.0-52.0); Hemoglobin 10.3 g/dL (13.0-18.0); Mean Corp Hgb Conc. 33.8 g/dL (33.0-37.0); Mean Corpuscular Volume 98.4 fL (80.0-94.0); Platelet Count 112 10^3/uL (130-400); Red Cell Dist. Width 15.8 % (11.5-14.5)
[2024-12-07 07:00] LABS: Blood Urea Nitrogen 26 mg/dl (9-20); Calcium 8.8 mg/dl (8.4-10.2); Carbon Dioxide 25 mmol/L (22-30); Chloride 107 mmol/L (98-107); Estimated Creatinine Clearance 73 ml/min; Glucose 167 mg/dl (70-99); Potassium 4.0 mmol/L (3.5-5.1); Sodium 137 mmol/L (135-145); eGFR > 60.00
[2024-12-07 07:27] LABS: Glucose - Point of Care 176 mg/dl (70-99)
[2024-12-07 07:30] VITALS: BP 146/92
[2024-12-07] MEDS: ELIQUIS 10 MG PO ×2 (08:38→20:40)
[2024-12-07] MEDS: LASIX 20 MG IV ×2 (08:38→15:13)
[2024-12-07] MEDS: NOVOLOG FLEXPEN-MODERATE RESISTANCE 1 UNITS SC (08:38)
[2024-12-07] MEDS: VITAMIN D3 (cholecalciferol) 25 MCG PO (08:39)
[2024-12-07] MEDS: PROTONIX 40 MG PO ×2 (08:39→20:40)
[2024-12-07] MEDS: VITAMIN B-12 1000 MCG PO (08:39)
--- NOTE | 2024-12-07 11:26 | W.PN.CD ---
Today's Communication / Plan
-
transition to coreg 12.5mg bid
continue IV lasix
Impression / Plan
-
Afib - new onset 12/05/24 with RVR.
- rates improved with IV Lopressor then converted to NSR.
- BP was low initially, now hypertensive
-transition to coreg 12.5mg bid, and titrate as needed
-on eliquis for PE
Pulmonary embolism - severe b/l.
- s/p lysis and thrombectomy by IR.
- pulmonary following.
-on eliquis
Acute HF, right sided in setting of PE
-continue IV lasix with close monitoring of labs/tele
CAD - stable w/o angina.
- s/p tandem RCA PCI 2006.
- followed up with [facility] cardiology for a couple years after PCI but has not seen cardiology in 'years'.
- abnormal troponin peak 0.173, acute non-ischemic myocardial injury in the setting of acute PE/DVT/rapid Afib.
HTN - back on coreg
echo 12/03/24: Small left ventricle with normal systolic function; LVEF 60-65% by visual estimate. Severely dilated and hypokinetic right ventricle. There is relative sparing of systolic function in the RV apex consistent with right ventricular
strain (Louis's sign). Mild to moderate tricuspid regurgitation. Estimated pulmonary artery pressure of 59 mmHg assuming a right atrial pressure of 15 mmHg.
Physical Exam
Vital Signs/Labs
Vital Signs
Temp Pulse Resp BP Pulse Ox
97.5 F 86 18 146/92 96
12/07/24 07:30 12/07/24 07:30 12/07/24 07:30 12/07/24 07:30 12/07/24 08:45
12/07/24 05:36
12/07/24 05:36
PT Cancelled 12/03/24 18:00
INR Cancelled 12/03/24 18:00
APTT Cancelled 12/06/24 12:45
Magnesium 1.9 mg/dl (1.6-2.3) 12/05/24 03:08
12/03/24
06:38
Dgz-M-Gsjmnlkqfob Pept > 35259
Physical Exam
Constitutional: No acute distress and Comfortable
EENT: Moist mucous membranes
Cardiovascular: Rhythm & rate is regular, Systolic murmur absent, Pedal edema present and JVD present
Respiratory: Respiratory effort normal and Lungs clear to auscul.
Neuro/Psych: AO x 3
Data Reviewed
-
Date of Service: December 07, 2024
EKG: Other (Tele: SR 70s)
Labs: Labs Reviewed by me
[2024-12-07 11:30] VITALS: BP 152/90
[2024-12-07 11:42] LABS: Glucose - Point of Care 202 mg/dl (70-99)
--- NOTE | 2024-12-07 11:44 | W.PN.HOSP.TC ---
Today's Communication/Plan
-
Continue with IV Lasix and follow-up weight and lower extremity edema.
Assessment / Plan
Assessment / Plan
Assessment:
Massive bilateral PE with RV strain, hypoxia, hypotension (Acute Cor Pulmonale)
- CT: SEVERE ACUTE BILATERAL PULMONARY ARTERIAL EMBOLIC DISEASE with large pulmonary arterial emboli in both the right and left pulmonary arteries. ACUTE RIGHT HEART STRAIN and PULMONARY ARTERIAL HYPERTENSION
- US: nonocclusive thrombus within the mid left femoral vein and mid left popliteal vein. There is occlusive thrombus within the distal left femoral vein and throughout the left popliteal and peroneal veins, as well as within the proximal and distal
aspects of the left posterior tibial vein
- PERT alert in ER
- Continue AC -switched from IV heparin to Eliquis 12/06
- s/p catheter directed thrombolysis (tPA) and mechanical thrombectomy (suction thrombectomy of both the R and L main pulmonary arteries) by IR
- Echo: Small left ventricle with normal systolic function; LVEF 60-65% by visual estimate. Severely dilated and hypokinetic right ventricle. There is relative sparing of systolic function in the RV apex consistent with right ventricular strain
(Louis's sign). Mild to moderate tricuspid regurgitation. Estimated pulmonary artery pressure of 59 mmHg assuming a right atrial pressure of 15 mmHg.
- Elevated BNP related to RV failure acutely. No pulm edema on CT
- Monitor for pressor requirements
Acute hypoxic respiratory failure in setting of PE
- resolved .Off of O2 now.
- Home O2 eval on dc
Type 2 ID from demand mismatch from PE
- Trop peaked at .173
New onset A. Fib
- new diagnosis
- normal TSH
- Continue AC
- PRN Lopressor
- DCA Cards evaluation
Lower extremity edema-chronic per patient-unclear etiology. echocardiogram as above. No evidence of chronic liver dysfunction, noted CKD stage 3b. CW IV lasix and follow response
History of GI bleed-history of peptic ulcer disease in the past. Patient currently on Protonix once a day - Will increase to twice a day for now. Last EGD in 2020 showed healed ulceration. HH stable.
History of acute kidney injury in 2024
Chronic kidney disease stage IIIb (1.9 from 05/13)
- Cr 1.2; monitor UOP
History of chronic diarrhea - follow stool chart.
Diabetes mellitus type 2- hold Invokana and metformin controlled on sliding scale insulin. A1c is 6.0
History of CAD s/p remote stenting in early - resume aspirin once off of tPA. Will reassume statins once stable.
Acute thrombocytopenia
- likely consumptive from acute clot; monitor trends- improving.
Code: Full
Anticipated Discharge: > 48 hours
Subjective/Interval History
-
Date of Service: December 07, 2024
Denies any chest pain or shortness of breath. Denies dizziness.
Persistent lower extremity edema.
Objective Data
-
Labs:
Laboratory Results
12/07/24
05:36
WBC 4.2 L
Hgb 10.3 L
Hct 30.5 L
Plt Count 112 L
Sodium 137
Potassium 4.0
Chloride 107
Carbon Dioxide 25
BUN 26 H
Creatinine 1.2
Glucose 167 H
Calcium 8.8
Vital Signs:
Vital Signs
Temp Pulse Resp BP Pulse Ox
97.5 F 86 18 146/92 96
12/07/24 07:30 12/07/24 07:30 12/07/24 07:30 12/07/24 07:30 12/07/24 08:45
I&O
12/06/24 12/07/24 12/08/24
06:59 06:59 06:59
Intake Total 1257 / 1257 1180 / 1180
Output Total 1450 / 1450 2100 / 2100
Balance -193 / -193 -920 / -920
Physical Exam
-
General: Comfortable
Respiratory: Clear to Auscultation and Non Labored Respirations; Negative Accessory Resp Muscle Use
Cardiac: Regular Rhythm and S1/S2; Negative Tachycardic
GI: Soft
Musculoskeletal: Edema, Right Lower Extrem and Edema, Left Lower Extrem
Neuro: AO x 3
Psych: Calm; Negative Confused
Data Reviewed
-
Labs: Labs Reviewed by me
[2024-12-07] MEDS: NOVOLOG FLEXPEN-MODERATE RESISTANCE 3 UNITS SC ×2 (12:13→16:46)
[2024-12-07] MEDS: COREG 12.5 MG PO ×2 (12:17→20:41)
--- NOTE | 2024-12-07 13:58 | W.PN.PUL3 ---
Today's Communication / Plan
-
- Continue diuresis, might need additional uptitration of Lasix
- Assess for need for home oxygen prior to discharge
Assessment
-
Patient is a very pleasant 69-year-old gentleman who presents to the emergency room with shortness of breath. Patient reports that he first noticed shortness of breath on the morning of 12/02 when he walked in the morning. During the day he has
continued to felt poorly with episodes of dizziness and even near syncope. Overnight patient had progressively worsening shortness of breath and EMS was called. Patient was noted to be in respiratory distress with initial pulse oximetry in low
80s. Patient was started on supplemental oxygen, given nebulized treatment and brought to the emergency room. In the emergency room patient had borderline blood pressure along with tachycardia and mild respiratory distress. A chest x-ray was
performed followed by a CT PE protocol which was suggestive of bilateral pulmonary embolism with RV strain. Patient also noted to have elevated troponin and BNP. In view of hypoxia, patient was subsequently switched to mid flow supplemental
oxygen. In view of submassive pulmonary embolism, a PERT alert was called. Patient is being admitted to ICU in view of hypoxic respiratory failure and highway design engineer consultation was requested for further input.
Patient has no prior history of pulmonary embolism. However he reports that there is strong family history of pulmonary embolism with his mother and sibling affected with VTE events. Patient frequently drives to [place] and 2 weeks ago had a
10-hour long car drive which likely is a provoking factor for underlying VTE event.
#1. Submassive bilateral pulmonary embolism with RV strain and LLE DVT
- PERT alert activated in ED, s/p heparin and then catheter directed thrombolysis and suction thrombectomy on 12/03 by IR service
- 12/06, heparin transition to Eliquis 10 mg twice daily
- Oxygen weaned off, currently doing well on room air
- Echocardiogram suggestive of dilated RV with Louis sign. Elevated pulmonary pressures.
- Etiology of pulmonary embolism likely provoked or related to long road travel, 10-hour drive couple of weeks ago. Also reported strong family history of VTE events in patient's mother and sibling. Duration of anticoagulation to be determined.
Considering life-threatening nature of current VTE event, obesity, strong family history and likely persistence of provoking factors in future, will favor long-term anticoagulation in the absence of any contraindication.
- Will need outpatient follow-up with pulmonary clinic
#2. Acute hypoxic respiratory failure.
- Due to bilateral pulmonary embolism and RV strain
- Clinically improving, saturating well on room air
- Assess for need for home O2, with activity particularly
#3. Pulmonary hypertension
- Echocardiogram suggestive of Louis sign with RV dysfunction related to acute PE
- Patient also is obese, at risk of having underlying sleep disordered breathing. Needs additional workup including pulmonary function testing and sleep study as outpatient
- Continue O2 support to keep saturation above 90%
- Considering continued hemodynamic stability, initiated IV diuresis, still quite volume overloaded. Cardiology service on case
#4. H/O CAD
- Reported PCI > 10 years ago.
- Continue telemetry monitoring
#5. Troponin leak, suspect Type II NSTEMI
- Suspect troponin is due to bilateral PE
- Cardiology service on case
#6. Bilateral pedal edema
- BNP > 2700
- Echo suggestive of pulmonary hypertension as well as Louis sign
- 2-3+ bilateral pitting edema. Increased Lasix to 20 mg IV twice daily on 12/07. Might need additional up-titration
#7. h/o PUD
- Reported h/o hematemesis close to 10 years ago
- Currently been on Pepcid, no active issues
- Continue PPI
#8. CKD stage III
- Creatinine improved after initial rise to 1.4, responded well to IV fluids
- At risk of contrast nephropathy
- Holding Metformin and Ramipril for now
- Discontinued IV fluids, initiated low-dose diuretics
#8. BMI 40.4
- At risk of sleep disordered breathing
- Can discuss regarding sleep study as out patient
#9. Paroxysmal A fib with RVR
- S/p as needed IV Lopressor overnight
- Cardiology consult
Other medical diagnoses:
- DM
- HLD
- Hypothyroidism
Total time spent on this consultation/encounter __38__ minutes which includes review of history, physical exam, medications, laboratory data, personal review of imaging, extensive review of outpatient records, discussion with care team and
respiratory therapy.
Data:
EKG 11/2024: Sinus tachycardia with incomplete right bundle branch block. QTc prolonged at 559.
CT-PE 11/2024: 1. SEVERE ACUTE BILATERAL PULMONARY ARTERIAL EMBOLIC DISEASE with large pulmonary arterial emboli in both the right and left pulmonary arteries.
2. ACUTE RIGHT HEART STRAIN and PULMONARY ARTERIAL HYPERTENSION.
3. Chronic granulomatous disease infection.
4. Mild subsegmental atelectasis and scarring in both lungs.
5. Mild splenomegaly.
Subjective Data
-
Date of Service:
Date of Service: December 07, 2024
Subjective:
Continues to report gradual improvement in symptoms
Review of Systems
Genitourinary: Other (No new symptoms reported)
Objective Data
Data Reviewed
Vital Signs / I&O / Oxygen:
Vital Signs
Temp Pulse Resp BP Pulse Ox
97.6 F 78 20 152/90 98
12/07/24 11:30 12/07/24 11:30 12/07/24 11:30 12/07/24 11:30 12/07/24 11:30
Intake and Output
12/06/24 12/07/24 12/08/24
06:59 06:59 06:59
Intake Total 1257 / 1257 1180 / 1180
Output Total 1450 / 1450 2100 / 2100
Balance -193 / -193 -920 / -920
SaO2 98
Nasal Cannula flow liters per 2
minute
Physical Exam
General: Comfortable
HEENT: Normocephalic
Cardiovascular: S1-S2 and Peripheral Edema (2-3+)
Respiratory: Clear and Non-Labored Respirations
GI: Soft and Non Distended
Neurology: Awake and Alert
Skin: Warm
Labs/Micro/Reports
Lab Data
12/07/24 05:36
12/07/24 05:36
[2024-12-07 15:30] VITALS: BP 136/75
[2024-12-07 16:31] LABS: Glucose - Point of Care 249 mg/dl (70-99)
[2024-12-07 19:13] VITALS: BP 125/76
[2024-12-07 21:14] LABS: Glucose - Point of Care 221 mg/dl (70-99)
[2024-12-07 23:00] VITALS: BP 123/71
[2024-12-08 03:00] VITALS: BP 116/63
[2024-12-08] MEDS: SYNTHROID 100 MCG PO (05:20)
[2024-12-08 06:54] LABS: Hematocrit 31.6 % (39.0-52.0); Hemoglobin 10.0 g/dL (13.0-18.0); Mean Corp Hgb Conc. 31.6 g/dL (33.0-37.0); Mean Corpuscular Volume 103.3 fL (80.0-94.0); Platelet Count 103 10^3/uL (130-400); Red Cell Dist. Width 15.9 % (11.5-14.5)
[2024-12-08 07:14] LABS: Blood Urea Nitrogen 27 mg/dl (9-20); Calcium 8.3 mg/dl (8.4-10.2); Carbon Dioxide 29 mmol/L (22-30); Chloride 106 mmol/L (98-107); Estimated Creatinine Clearance 73 ml/min; Glucose 172 mg/dl (70-99); Potassium 3.9 mmol/L (3.5-5.1); Sodium 138 mmol/L (135-145); eGFR > 60.00
[2024-12-08 07:27] LABS: Glucose - Point of Care 172 mg/dl (70-99)
[2024-12-08 07:30] VITALS: BP 121/67
--- NOTE | 2024-12-08 07:42 | W.PN.CD ---
Today's Communication / Plan
-
cotninue IV diuresis
continue current bb dose
Impression / Plan
-
Afib - new onset 12/05/24 with RVR.
- rates improved with IV Lopressor then converted to NSR.
- BP was low initially, now hypertensive
-transition to coreg 12.5mg bid, continue for now
-on eliquis for PE
Pulmonary embolism - severe b/l.
- s/p lysis and thrombectomy by IR.
- pulmonary following.
-on eliquis
Acute HF, right sided in setting of PE
-remians overloaded
-continue IV lasix with close monitoring of labs/tele
CAD - stable w/o angina.
- s/p tandem RCA PCI 2006.
- followed up with [facility] cardiology for a couple years after PCI but has not seen cardiology in 'years'.
- abnormal troponin peak 0.173, acute non-ischemic myocardial injury in the setting of acute PE/DVT/rapid Afib.
HTN - back on coreg
Subjective:
feeling better +early satiety, le edema
echo 12/03/24: Small left ventricle with normal systolic function; LVEF 60-65% by visual estimate. Severely dilated and hypokinetic right ventricle. There is relative sparing of systolic function in the RV apex consistent with right ventricular
strain (Louis's sign). Mild to moderate tricuspid regurgitation. Estimated pulmonary artery pressure of 59 mmHg assuming a right atrial pressure of 15 mmHg.
Physical Exam
Vital Signs/Labs
Vital Signs
Temp Pulse Resp BP Pulse Ox
97.4 F 80 16 116/63 98
12/08/24 03:00 12/08/24 03:00 12/08/24 03:00 12/08/24 03:00 12/08/24 03:31
12/08/24 06:17
12/08/24 06:17
PT Cancelled 12/03/24 18:00
INR Cancelled 12/03/24 18:00
APTT Cancelled 12/06/24 12:45
Magnesium 1.9 mg/dl (1.6-2.3) 12/05/24 03:08
12/03/24
06:38
Mgm-E-Oioxiqmgfsi Pept > 25148
Physical Exam
Constitutional: No acute distress and Comfortable
Cardiovascular: Rhythm & rate is regular and Pedal edema present (2+ pitting up through legs)
Respiratory: Respiratory effort normal, Lungs clear to auscul., Wheeze Absent, Crackles Absent and Rhonchi Absent
Neuro/Psych: AO x 3
Data Reviewed
-
Date of Service: December 08, 2024
Medical Decision Making: Review of Case with other Provider (Dr Gorman, continue diuresis)
EKG: Other (tele sinus with pac)
[2024-12-08] MEDS: COREG 12.5 MG PO ×2 (07:51→20:20)
[2024-12-08] MEDS: NOVOLOG FLEXPEN-MODERATE RESISTANCE 1 UNITS SC ×2 (07:51→16:52)
[2024-12-08] MEDS: ELIQUIS 10 MG PO ×2 (07:51→20:20)
[2024-12-08] MEDS: LASIX 20 MG IV ×2 (07:52→15:01)
[2024-12-08] MEDS: PROTONIX 40 MG PO ×2 (07:52→20:20)
[2024-12-08] MEDS: VITAMIN B-12 1000 MCG PO (07:52)
[2024-12-08] MEDS: VITAMIN D3 (cholecalciferol) 25 MCG PO (07:52)
[2024-12-08 08:03] VITALS: BMI 39.6
--- NOTE | 2024-12-08 09:24 | W.PN.PUL3 ---
Today's Communication / Plan
-
Remains stable on RA, transitioned to OAC and tolerating
Has not been active, PT/OT following
Continue diuresis per cards service, defer further management to their service
From our perspective, can assess for d/c planning
OP FU to be arranged
Assessment
-
Patient is a very pleasant 69-year-old gentleman who presents to the emergency room with shortness of breath. Patient reports that he first noticed shortness of breath on the morning of 12/02 when he walked in the morning. During the day he has
continued to felt poorly with episodes of dizziness and even near syncope. Overnight patient had progressively worsening shortness of breath and EMS was called. Patient was noted to be in respiratory distress with initial pulse oximetry in low
80s. Patient was started on supplemental oxygen, given nebulized treatment and brought to the emergency room. In the emergency room patient had borderline blood pressure along with tachycardia and mild respiratory distress. A chest x-ray was
performed followed by a CT PE protocol which was suggestive of bilateral pulmonary embolism with RV strain. Patient also noted to have elevated troponin and BNP. In view of hypoxia, patient was subsequently switched to mid flow supplemental
oxygen. In view of submassive pulmonary embolism, a PERT alert was called. Patient is being admitted to ICU in view of hypoxic respiratory failure and sales and service officer consultation was requested for further input.
Patient has no prior history of pulmonary embolism. However he reports that there is strong family history of pulmonary embolism with his mother and sibling affected with VTE events. Patient frequently drives to [place] and 2 weeks ago had a
10-hour long car drive which likely is a provoking factor for underlying VTE event.
Submassive bilateral pulmonary embolism with RV strain and LLE DVT
Acute hypoxic respiratory failure.
Troponin leak, suspect Type II NSTEMI
Bilateral pedal edema
Pulmonary hypertension
H/O CAD s/p cardiac stents x 2006
PUD
Benign essential HTN
Diabetes 1.5, managed as type 2
High cholesterol
R knee sx
Rt hernia sx
History of bleeding ulcer 04/2020
CKD stage III
Paroxysmal A fib with RVR
Morbid obesity
Plan
PE noted - PERT alert activated in ED, s/p heparin and then catheter directed thrombolysis and suction thrombectomy on 12/03 by IR service
- 12/06, heparin transition to Eliquis 10 mg twice daily
- Oxygen weaned off, currently doing well on room air
- Echocardiogram suggestive of dilated RV with Louis sign. Elevated pulmonary pressures.
- Etiology of pulmonary embolism likely provoked or related to long road travel, 10-hour drive couple of weeks ago. Also reported strong family history of VTE events in patient's mother and sibling. Duration of anticoagulation to be determined.
Considering life-threatening nature of current VTE event, obesity, strong family history and likely persistence of provoking factors in future, will favor long-term anticoagulation in the absence of any contraindication.
- Will need outpatient follow-up with pulmonary clinic
- Clinically improving, saturating well on room air
- Assess for need for home O2, with activity particularly
Echocardiogram suggestive of Louis sign with RV dysfunction related to acute PE
- Patient also is obese, at risk of having underlying sleep disordered breathing. Needs additional workup including pulmonary function testing and sleep study as outpatient
- Continue O2 support to keep saturation above 90%
- Considering continued hemodynamic stability, initiated IV diuresis, still quite volume overloaded. Cardiology service on case
CAD history - Reported PCI > 10 years ago.
- Continue telemetry monitoring
- Suspect troponin is due to bilateral PE
- Cardiology service on case
- BNP > 2700
- Echo suggestive of pulmonary hypertension as well as Louis sign
- 2-3+ bilateral pitting edema. Increased Lasix to 20 mg IV twice daily on 12/07. Might need additional up-titration
CKD stage III
- Creatinine improved after initial rise to 1.4, responded well to IV fluids
- At risk of contrast nephropathy
- Holding Metformin and Ramipril for now
- Discontinued IV fluids, initiated low-dose diuretics
BMI 40.4
- At risk of sleep disordered breathing
- Can discuss regarding sleep study as out patient
Paroxysmal A fib with RVR
- S/p as needed IV Lopressor overnight
- Cardiology consult
Data:
EKG 11/2024: Sinus tachycardia with incomplete right bundle branch block. QTc prolonged at 559.
CT-PE 11/2024: 1. SEVERE ACUTE BILATERAL PULMONARY ARTERIAL EMBOLIC DISEASE with large pulmonary arterial emboli in both the right and left pulmonary arteries.
2. ACUTE RIGHT HEART STRAIN and PULMONARY ARTERIAL HYPERTENSION.
3. Chronic granulomatous disease infection.
4. Mild subsegmental atelectasis and scarring in both lungs.
5. Mild splenomegaly.
ECHO 12/03/24- 1. Small left ventricle with normal systolic function; LVEF 60-65% by visual estimate.
2. Severely dilated and hypokinetic right ventricle. There is relative sparing of systolic function in the RV apex consistent with right ventricular strain (Louis's sign).
3. Mild to moderate tricuspid regurgitation. Estimated pulmonary artery pressure of 59 mmHg assuming a right atrial pressure of 15 mmHg.
4. No prior study for comparison.
Total time spent on this consultation/encounter __50__ minutes which includes review of history, physical exam, medications, laboratory data, personal review of imaging, extensive review of outpatient records, discussion with care team and
respiratory therapy.
Subjective Data
-
Date of Service:
Date of Service: December 08, 2024
Chief Complaint: Pulmonary Follow Up
Subjective:
No new complaints, stable on RA
Sitting in chair, LE swelling noted
Has not ambulated much
Objective Data
Data Reviewed
Vital Signs / I&O / Oxygen:
Vital Signs
Temp Pulse Resp BP Pulse Ox
98.4 F 87 18 121/67 94
12/08/24 07:30 12/08/24 07:30 12/08/24 07:30 12/08/24 07:30 12/08/24 08:00
Intake and Output
1012/08/24 12/09/24
06:59 06:59 06:59
Intake Total 1180 / 1180 1620 / 1620
Output Total 2099 / 2099 2650 / 2650
Balance -920 / -920 -1030 / -1030
SaO2 94
Nasal Cannula flow liters per 2
minute
Physical Exam
General: Comfortable and Other (NAD, obese)
HEENT: Normocephalic, Anicteric and Moist Mucous Membranes
Cardiovascular: S1-S2, Regular Rhythm and Peripheral Edema (2-3+)
Respiratory: Clear and Non-Labored Respirations
GI: Soft, Non Distended and Non Tender
Neurology: Awake, Alert, Oriented, No Motor Deficits and Depressed (flat affect)
Skin: Warm and Dry
Labs/Micro/Reports
Lab Data
12/08/24 06:17
12/08/24 06:17
[2024-12-08 11:30] VITALS: BP 124/77
[2024-12-08 11:42] LABS: Glucose - Point of Care 237 mg/dl (70-99)
[2024-12-08] MEDS: NOVOLOG FLEXPEN-MODERATE RESISTANCE 3 UNITS SC (11:57)
--- NOTE | 2024-12-08 13:45 | W.PN.HOSP.TC ---
Today's Communication/Plan
-
continue IV Lasix
monitor stools
encourage ambulation
Assessment / Plan
Assessment / Plan
Assessment:
Massive bilateral PE with RV strain, hypoxia, hypotension (Acute Cor Pulmonale)
- CT: SEVERE ACUTE BILATERAL PULMONARY ARTERIAL EMBOLIC DISEASE with large pulmonary arterial emboli in both the right and left pulmonary arteries. ACUTE RIGHT HEART STRAIN and PULMONARY ARTERIAL HYPERTENSION
- US: nonocclusive thrombus within the mid left femoral vein and mid left popliteal vein. There is occlusive thrombus within the distal left femoral vein and throughout the left popliteal and peroneal veins, as well as within the proximal and distal
aspects of the left posterior tibial vein
- PERT alert in ER
- s/p catheter directed thrombolysis (tPA) and mechanical thrombectomy (suction thrombectomy of both the R and L main pulmonary arteries) by IR
- continue Eliquis; lifelong therapy recommended per Pulmonary
- Echo: Small left ventricle with normal systolic function; LVEF 60-65% by visual estimate. Severely dilated and hypokinetic right ventricle. There is relative sparing of systolic function in the RV apex consistent with right ventricular strain
(Louis's sign). Mild to moderate tricuspid regurgitation. Estimated pulmonary artery pressure of 59 mmHg assuming a right atrial pressure of 15 mmHg.
- Elevated BNP related to RV failure acutely. No pulm edema on CT
Acute right sided HFpEF from PE
Acute on chronic LE Edema
- continue IV Lasix - requires intensive monitoring of I/Os, weights, lytes
Acute hypoxic respiratory failure in setting of PE
- Home O2 eval on dc
Type 2 RI from demand mismatch from PE
- Trop peaked at .173
New onset A. Fib
- new diagnosis
- normal TSH
- continue Eliquis/BB
- CBC Cards following
History of GI bleed
hx of PUD
- continue PPI BID
- Hb stable
- noted heme+ stool per RN 12/08 - will monitor for further signs or dropping Hb
History of acute kidney injury in 2024
Chronic kidney disease stage IIIb (1.9 from 05/13)
- Cr 1.2; monitor UOP
History of chronic diarrhea - follow stool chart.
Diabetes mellitus type 2 - hold Invokana and metformin controlled on sliding scale insulin. A1c is 6.0
History of CAD s/p remote stenting in early - resume aspirin once off of tPA. Will reassume statins once stable.
Acute thrombocytopenia
- likely consumptive from acute clot; monitor trends
Code: Full
Dispo: spouse interested in SNF (will accept home/VN if SNF not feasible)
Anticipated Discharge: > 48 hours
Subjective/Interval History
-
Date of Service: December 08, 2024
resting comfortably
Hb stable at 10.0
Objective Data
-
Labs:
Laboratory Results
12/08/24
06:17
WBC 3.8 L
Hgb 10.0 L
Hct 31.6 L
Plt Count 103 L
Sodium 138
Potassium 3.9
Chloride 106
Carbon Dioxide 29
BUN 27 H
Creatinine 1.2
Glucose 172 H
Calcium 8.3 L
Vital Signs:
Vital Signs
Temp Pulse Resp BP Pulse Ox
97.8 F 65 18 124/77 95
12/08/24 11:30 12/08/24 11:30 12/08/24 11:30 12/08/24 11:30 12/08/24 11:30
I&O
12/07/24 12/08/24 12/09/24
06:59 06:59 06:59
Intake Total 1180 / 1180 1620 / 1620
Output Total 2099 / 2099 2650 / 2650
Balance -920 / -920 -1030 / -1030
Physical Exam
-
General: No Apparent Distress
HEENT: Normocephalic and Atraumatic
Respiratory: Negative Wheezes
Cardiac: Regular Rhythm and S1/S2
GI: Soft
Musculoskeletal: Edema, Right Lower Extrem and Edema, Left Lower Extrem
Neuro: AO x 3
Psych: Calm
Data Reviewed
-
Total Time Spent with Patient (in minutes): 51
Labs: Labs Reviewed by me
--- NOTE | 2024-12-08 14:04 | CM ---
Chart reviewed. Care ongoing
Continue IV Lasix
Assess for need for home oxygen prior to discharge. Patient on room air at this time
Therapy rec home health at d/c as of 12/05. Family wants to explore rehab for patient, however, patient was supervision level previously so unsure if insurance will approve
Plan: Home w/ services.
[2024-12-08 15:30] VITALS: BP 129/80
[2024-12-08 16:50] LABS: Glucose - Point of Care 189 mg/dl (70-99)
[2024-12-08 19:19] VITALS: BP 140/78
[2024-12-08 21:07] LABS: Glucose - Point of Care 188 mg/dl (70-99)
[2024-12-08 23:08] VITALS: BP 125/75
[2024-12-09] VITALS (8 sets, daily range): BP systolic 114–131; BP diastolic 63–76; PULSE 75; O2SAT 96–98; BMI 39.4
[2024-12-09] MEDS: SYNTHROID 100 MCG PO (05:05)
[2024-12-09 07:07] LABS: Hematocrit 31.5 % (39.0-52.0); Hemoglobin 10.3 g/dL (13.0-18.0); Mean Corp Hgb Conc. 32.7 g/dL (33.0-37.0); Mean Corpuscular Volume 102.6 fL (80.0-94.0); Platelet Count 111 10^3/uL (130-400); Red Cell Dist. Width 15.9 % (11.5-14.5)
[2024-12-09 07:33] LABS: Blood Urea Nitrogen 27 mg/dl (9-20); Calcium 8.7 mg/dl (8.4-10.2); Carbon Dioxide 31 mmol/L (22-30); Chloride 102 mmol/L (98-107); Estimated Creatinine Clearance 75 ml/min; Glucose 169 mg/dl (70-99); Potassium 3.6 mmol/L (3.5-5.1); Sodium 133 mmol/L (135-145); eGFR > 60.00
[2024-12-09 08:07] LABS: Glucose - Point of Care 154 mg/dl (70-99)
[2024-12-09] MEDS: NOVOLOG FLEXPEN-MODERATE RESISTANCE 1 UNITS SC ×2 (08:21→17:05)
[2024-12-09] MEDS: ELIQUIS 10 MG PO ×2 (08:23→20:08)
[2024-12-09] MEDS: COREG 12.5 MG PO ×2 (08:23→20:08)
[2024-12-09] MEDS: LASIX 20 MG IV ×2 (08:23→16:29)
[2024-12-09] MEDS: VITAMIN B-12 1000 MCG PO (08:24)
[2024-12-09] MEDS: PROTONIX 40 MG PO ×2 (08:24→20:08)
[2024-12-09] MEDS: VITAMIN D3 (cholecalciferol) 25 MCG PO (08:24)
--- NOTE | 2024-12-09 08:25 | W.PN.CD ---
Today's Communication / Plan
-
- Continue Coreg 12.5mg BID.
- Can transition to Lasix 40 mg PO daily tomorrow, which should be his home regimen.
- Outpatient follow-up with Cardiology.
Impression / Plan
-
Afib - new onset 12/05/24 with RVR.
- rates improved with IV Lopressor then converted to NSR.
- BP was low initially, now hypertensive
-Continue Coreg 12.5mg BID.
-on eliquis for PE
Pulmonary embolism - severe b/l.
- s/p lysis and thrombectomy by IR.
- Pulmonary following.
- On eliquis
Acute HF, right sided in setting of PE
- Volume status improved.
- Can transition to Lasix 40 mg PO daily tomorrow, which should be his home regimen.
CAD - stable w/o angina.
- s/p tandem RCA PCI 2006.
- followed up with [facility] cardiology for a couple years after PCI but has not seen cardiology in 'years'.
- abnormal troponin peak 0.173, acute non-ischemic myocardial injury in the setting of acute PE/DVT/rapid Afib.
HTN - back on coreg
Subjective:
No major events overnight. No cardiac complaints this a.m.
echo 12/03/24: Small left ventricle with normal systolic function; LVEF 60-65% by visual estimate. Severely dilated and hypokinetic right ventricle. There is relative sparing of systolic function in the RV apex consistent with right ventricular
strain (Louis's sign). Mild to moderate tricuspid regurgitation. Estimated pulmonary artery pressure of 59 mmHg assuming a right atrial pressure of 15 mmHg.
Physical Exam
Vital Signs/Labs
Vital Signs
Temp Pulse Resp BP Pulse Ox
98.1 F 73 18 130/74 93
12/09/24 03:03 12/09/24 03:03 12/09/24 03:03 12/09/24 03:03 12/09/24 03:03
12/08/24 12/09/24 12/10/24
06:59 06:59 06:59
Actual Weight 120.882 kg
12/09/24 06:40
12/09/24 06:40
PT Cancelled 12/03/24 18:00
INR Cancelled 12/03/24 18:00
APTT Cancelled 12/06/24 12:45
Magnesium 1.9 mg/dl (1.6-2.3) 12/05/24 03:08
12/03/24
06:38
[id number] Pept > 31837
Physical Exam
Constitutional: No acute distress and Comfortable
EENT: Anicteric
Cardiovascular: Rhythm & rate is regular, Pedal edema present (1+), Systolic murmur present (1/6) and S1S2 is normal
Respiratory: Respiratory effort normal and Rhonchi Present
GI: Soft
Neuro/Psych: AO x 3
Other: Skin (Warm, dry)
Data Reviewed
-
Date of Service: December 09, 2024
EKG: Tracing Personally Visualized and interpreted (Telemetry: Sinus rhythm)
Echo: Report Reviewed by me (LVEF 60%; dilated, hypokinetic RV; mild to moderate TR, PASP 59 mmHg.)
Labs: Labs Reviewed by me
--- NOTE | 2024-12-09 09:10 | W.PN.HOSP.TC ---
Today's Communication/Plan
-
IV Lasix today; likely oral tomorrow
continue Eliquis
continue ambulation
hopefully dc in 24 hours
Assessment / Plan
Assessment / Plan
Assessment:
Massive bilateral PE with RV strain, hypoxia, hypotension (Acute Cor Pulmonale)
- CT: SEVERE ACUTE BILATERAL PULMONARY ARTERIAL EMBOLIC DISEASE with large pulmonary arterial emboli in both the right and left pulmonary arteries. ACUTE RIGHT HEART STRAIN and PULMONARY ARTERIAL HYPERTENSION
- US: nonocclusive thrombus within the mid left femoral vein and mid left popliteal vein. There is occlusive thrombus within the distal left femoral vein and throughout the left popliteal and peroneal veins, as well as within the proximal and distal
aspects of the left posterior tibial vein
- PERT alert in ER
- s/p catheter directed thrombolysis (tPA) and mechanical thrombectomy (suction thrombectomy of both the R and L main pulmonary arteries) by IR
- continue Eliquis; lifelong therapy recommended per Pulmonary
- Echo: Small left ventricle with normal systolic function; LVEF 60-65% by visual estimate. Severely dilated and hypokinetic right ventricle. There is relative sparing of systolic function in the RV apex consistent with right ventricular strain
(Louis's sign). Mild to moderate tricuspid regurgitation. Estimated pulmonary artery pressure of 59 mmHg assuming a right atrial pressure of 15 mmHg.
- Elevated BNP related to RV failure acutely. No pulm edema on CT
Acute right sided HFpEF from PE
Acute on chronic LE Edema
- continue IV Lasix - requires intensive monitoring of I/Os, weights, lytes
- likely transition to PO Lasix tomorrow
Acute hypoxic respiratory failure in setting of PE
- stable on RA on walking
Type 2 RI from demand mismatch from PE
- Trop peaked at .173
New onset A. Fib
- new diagnosis
- normal TSH
- continue Eliquis/BB
- CBC Cards following
History of GI bleed
hx of PUD
- continue PPI BID
- Hb stable
- noted heme+ stool per RN 12/08 - will monitor for further signs or dropping Hb
History of acute kidney injury in 2024
Chronic kidney disease stage IIIb (1.9 from 05/13)
- Cr 1.2; monitor UOP
History of chronic diarrhea - follow stool chart.
Diabetes mellitus type 2 - hold Invokana and metformin controlled on sliding scale insulin. A1c is 6.0
History of CAD s/p remote stenting in early - resume aspirin once off of tPA. Will reassume statins once stable.
Acute thrombocytopenia
- likely consumptive from acute clot; monitor trends
Code: Full
Dispo: spouse interested in SNF (will accept home/VN if SNF not feasible)
Anticipated Discharge: Within 24 hours
Subjective/Interval History
-
Date of Service: December 09, 2024
resting comfortably, no complaints
weight further 1 kg
Objective Data
-
Labs:
Laboratory Results
12/09/24
06:40
WBC 4.3 L
Hgb 10.3 L
Hct 31.5 L
Plt Count 111 L
Sodium 133 L
Potassium 3.6
Chloride 102
Carbon Dioxide 31 H
BUN 27 H
Creatinine 1.2
Glucose 169 H
Calcium 8.7
Vital Signs:
Vital Signs
Temp Pulse Resp BP Pulse Ox
98.4 F 74 18 131/76 94
12/09/24 07:00 12/09/24 07:00 12/09/24 07:00 12/09/24 07:00 12/09/24 08:30
I&O
12/08/24 12/09/24 12/10/24
06:59 06:59 06:59
Intake Total 1620 / 1620 1140 / 1140
Output Total 2650 / 2650 1775 / 1775
Balance -1030 / -1030 -635 / -635
Physical Exam
-
General: No Apparent Distress
HEENT: Normocephalic and Atraumatic
Respiratory: Negative Wheezes
Cardiac: Regular Rhythm and S1/S2
GI: Soft
Musculoskeletal: Edema, Right Lower Extrem and Edema, Left Lower Extrem
Neuro: AO x 3
Psych: Calm
Data Reviewed
-
Total Time Spent with Patient (in minutes): 51
Labs: Labs Reviewed by me
--- NOTE | 2024-12-09 09:36 | W.PN.PUL3 ---
Today's Communication / Plan
-
Doing well, stable on RA--tolerating Eliquis
Remains on lasix per team, likely to transition to PO in next 24 hours
concerned about his extreme sedentary behavior, suspect depression is a contributing factor given anhedonia complaints-- OP Psych recommended
We will arrange OP FU
Otherwise, no further recs from our standpoint, can discharge from our perspective
We will sign off at this time, please call with questions
Assessment
-
Patient is a very pleasant 69-year-old gentleman who presents to the emergency room with shortness of breath. Patient reports that he first noticed shortness of breath on the morning of 12/02 when he walked in the morning. During the day he has
continued to felt poorly with episodes of dizziness and even near syncope. Overnight patient had progressively worsening shortness of breath and EMS was called. Patient was noted to be in respiratory distress with initial pulse oximetry in low
80s. Patient was started on supplemental oxygen, given nebulized treatment and brought to the emergency room. In the emergency room patient had borderline blood pressure along with tachycardia and mild respiratory distress. A chest x-ray was
performed followed by a CT PE protocol which was suggestive of bilateral pulmonary embolism with RV strain. Patient also noted to have elevated troponin and BNP. In view of hypoxia, patient was subsequently switched to mid flow supplemental
oxygen. In view of submassive pulmonary embolism, a PERT alert was called. 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
Patient has no prior history of pulmonary embolism. However he reports that there is strong family history of pulmonary embolism with his mother and sibling affected with VTE events. Patient frequently drives to [place] and 2 weeks ago had a
10-hour long car drive which likely is a provoking factor for underlying VTE event.
Submassive bilateral pulmonary embolism with RV strain and LLE DVT
Acute hypoxic respiratory failure.
Troponin leak, suspect Type II NSTEMI
Bilateral pedal edema
Pulmonary hypertension
H/O CAD s/p cardiac stents x 2006
PUD
Benign essential HTN
Diabetes 1.5, managed as type 2
High cholesterol
R knee sx
Rt hernia sx
History of bleeding ulcer 04/2020
CKD stage III
Paroxysmal A fib with RVR
Morbid obesity
Plan
PE noted - PERT alert activated in ED, s/p heparin and then catheter directed thrombolysis and suction thrombectomy on 12/03 by IR service
- 12/06, heparin transition to Eliquis 10 mg twice daily
- Oxygen weaned off, currently doing well on room air
- Echocardiogram suggestive of dilated RV with Louis sign. Elevated pulmonary pressures.
- Etiology of pulmonary embolism likely provoked or related to long road travel, 10-hour drive couple of weeks ago. Also reported strong family history of VTE events in patient's mother and sibling. Duration of anticoagulation to be determined.
Considering life-threatening nature of current VTE event, obesity, strong family history and likely persistence of provoking factors in future, will favor long-term anticoagulation in the absence of any contraindication.
- Will need outpatient follow-up with pulmonary clinic
- Clinically improving, saturating well on room air
Echocardiogram suggestive of Louis sign with RV dysfunction related to acute PE
- Patient also is obese, at risk of having underlying sleep disordered breathing. Needs additional workup including pulmonary function testing and sleep study as outpatient
- Continue O2 support to keep saturation above 90%
- Considering continued hemodynamic stability, initiated IV diuresis, still quite volume overloaded. Cardiology service on case
CAD history - Reported PCI > 10 years ago.
- Continue telemetry monitoring
- Suspect troponin is due to bilateral PE
- Cardiology service on case
- BNP > 2700
- Echo suggestive of pulmonary hypertension as well as Louis sign
- 2-3+ bilateral pitting edema. Increased Lasix to 20 mg IV twice daily on 12/07.
CKD stage III
- Creatinine improved after initial rise to 1.4, responded well to IV fluids
- At risk of contrast nephropathy
- Holding Metformin and Ramipril for now
- Discontinued IV fluids, initiated low-dose diuretics
BMI 40.4
- At risk of sleep disordered breathing
- Can discuss regarding sleep study as out patient
Paroxysmal A fib with RVR
- S/p as needed IV Lopressor overnight
- Cardiology consult
Depression suspected, outpatient psych eval recommended
Data:
EKG 11/2024: Sinus tachycardia with incomplete right bundle branch block. QTc prolonged at 559.
CT-PE 11/2024: 1. SEVERE ACUTE BILATERAL PULMONARY ARTERIAL EMBOLIC DISEASE with large pulmonary arterial emboli in both the right and left pulmonary arteries.
2. ACUTE RIGHT HEART STRAIN and PULMONARY ARTERIAL HYPERTENSION.
3. Chronic granulomatous disease infection.
4. Mild subsegmental atelectasis and scarring in both lungs.
5. Mild splenomegaly.
ECHO 12/03/24- 1. Small left ventricle with normal systolic function; LVEF 60-65% by visual estimate.
2. Severely dilated and hypokinetic right ventricle. There is relative sparing of systolic function in the RV apex consistent with right ventricular strain (Louis's sign).
3. Mild to moderate tricuspid regurgitation. Estimated pulmonary artery pressure of 59 mmHg assuming a right atrial pressure of 15 mmHg.
4. No prior study for comparison.
Total time spent on this consultation/encounter __45__ minutes which includes review of history, physical exam, medications, laboratory data, personal review of imaging, extensive review of outpatient records, discussion with care team and
respiratory therapy.
Subjective Data
-
Date of Service:
Date of Service: December 09, 2024
Chief Complaint: Pulmonary Follow Up
Subjective:
No new complaints, remains stable on RA
at bedside verbalizing concerns that he wont get up
Objective Data
Data Reviewed
Vital Signs / I&O / Oxygen:
Vital Signs
Temp Pulse Resp BP Pulse Ox
98.4 F 74 18 131/76 94
12/09/24 07:00 12/09/24 07:00 12/09/24 07:00 12/09/24 07:00 12/09/24 08:30
Intake and Output
12/08/24 12/09/24 12/10/24
06:59 06:59 06:59
Intake Total 1620 / 1620 1140 / 1140
Output Total 2650 / 2650 1775 / 1775
Balance -1030 / -1030 -635 / -635
SaO2 94
Nasal Cannula flow liters per 2
minute
Physical Exam
General: Comfortable and Other (NAD, obese)
HEENT: Normocephalic, Anicteric and Moist Mucous Membranes
Cardiovascular: S1-S2, Regular Rhythm and Peripheral Edema (2-3+)
Respiratory: Clear and Non-Labored Respirations
GI: Soft, Non Distended and Non Tender
Neurology: Awake, Alert, Oriented, No Motor Deficits and Depressed (flat affect)
Skin: Warm and Dry
Labs/Micro/Reports
Lab Data
12/09/24 06:40
12/09/24 06:40
[2024-12-09 11:59] LABS: Glucose - Point of Care 215 mg/dl (70-99)
[2024-12-09] MEDS: NOVOLOG FLEXPEN-MODERATE RESISTANCE 3 UNITS SC (12:04)
--- NOTE | 2024-12-09 13:48 | VNURNOTE ---
Home Health Liaison met with patient at bedside to discuss [facility] nurse/therapy, visits, schedule and homebound status. Patient is agreeable and understands that visits at home will be 2-3 x per week to assess and teach medical management. Patient
is aware that [facility] will contact them for start of care within a few days after discharge from . Provided contact number for [facility].
[facility] referral accepted in [facility].
--- NOTE | 2024-12-09 15:49 | CM ---
Chart reviewed. Hospitalist has potential d/c for tomorrow. Therapy originally recommended home health services. Therapy evaluated today and now recommending SNF for patient. Spouse is requesting SNF planning for patient to get stronger.
[email or web address] list provided to spouse at bedside, prefers [facility] facilities. Spouse would like to review list w/ patient before deciding. CM made spouse aware patient may be ready for d/c tomorrow and referrals will need to be made by tomorrow.
Patient will need insurance auth
Plan: SNF
[2024-12-09 16:52] LABS: Glucose - Point of Care 198 mg/dl (70-99)
[2024-12-09 21:05] LABS: Glucose - Point of Care 233 mg/dl (70-99)
[2024-12-10] VITALS (7 sets, daily range): BP systolic 102–133; BP diastolic 55–71; BMI 38.6
--- NOTE | 2024-12-10 02:33 | DOWNTIME ---
There was a [employer] Downtime on 12/10/2024 from 0100 to 12/10/2024 at 0215. Downtime documentation of patient's care, including medication administrations, has been reconciled in the electronic record per guidelines. Refer to the
patient's paper chart under the miscellaneous tab to see printed paper medication records and downtime forms.
[2024-12-10] MEDS: SYNTHROID 100 MCG PO (05:50)
[2024-12-10] MEDS: VITAMIN D3 (cholecalciferol) 25 MCG PO (07:27)
[2024-12-10] MEDS: VITAMIN B-12 1000 MCG PO (07:27)
[2024-12-10] MEDS: PROTONIX 40 MG PO ×2 (07:27→19:31)
[2024-12-10] MEDS: ELIQUIS 10 MG PO ×2 (07:27→19:31)
[2024-12-10] MEDS: COREG 12.5 MG PO ×2 (07:27→19:31)
[2024-12-10] MEDS: LASIX 20 MG IV (07:28)
[2024-12-10 07:36] LABS: Hematocrit 31.5 % (39.0-52.0); Hemoglobin 10.3 g/dL (13.0-18.0); Mean Corp Hgb Conc. 32.7 g/dL (33.0-37.0); Mean Corpuscular Volume 101.9 fL (80.0-94.0); Platelet Count 122 10^3/uL (130-400); Red Cell Dist. Width 15.7 % (11.5-14.5)
[2024-12-10 08:05] LABS: Glucose - Point of Care 200 mg/dl (70-99)
[2024-12-10 08:25] LABS: Blood Urea Nitrogen 28 mg/dl (9-20); Calcium 8.5 mg/dl (8.4-10.2); Carbon Dioxide 30 mmol/L (22-30); Chloride 100 mmol/L (98-107); Estimated Creatinine Clearance 74 ml/min; Glucose 169 mg/dl (70-99); Potassium 3.5 mmol/L (3.5-5.1); Sodium 135 mmol/L (135-145); eGFR > 60.00
[2024-12-10] MEDS: NOVOLOG FLEXPEN-MODERATE RESISTANCE 3 UNITS SC (08:32)
--- NOTE | 2024-12-10 11:28 | CM ---
Addendum entered by Naheed Cosme 12/10/24 12:05:
Patient and spouse agreeable to [facility].
CM called [facility] to initiate auth, spoke w/ Laura. Requesting clinicals to be faxed
Clinicals faxed to [phone]
Pending ref # [id number]
Plan: D/c to [facility] SNF once auth is received
Original Note:
CM followed up w/ spouse regarding SNF options. Spouse identified [facility] and [facility]. Referrals entered in [facility]
Per Augustina/Kayla, can accept patient
Awaiting determinations from Alli Mcrae, per Lauren, beds are tight but will confirm if patient can be accepted
Left message w/ Jazlyn/Russel
--- NOTE | 2024-12-10 11:30 | PTCARENOTE ---
per MD Gorman hemetest stools no longer needed. H&H stable. will continue to monitor.
--- NOTE | 2024-12-10 12:11 | PN.CDI ---
CDI
- -
CDI:
Physician Documentation Request
Admit Date: 12/03/24 08:56
Dear Doctor Sherif,
Patient admitted with 'Massive bilateral PE with RV strain, hypoxia, hypotension (Acute Cor Pulmonale)'
Progress notes indicate 'Acute thrombocytopenia-likely consumptive from acute clot; monitor trends'
Labs:
Laboratory Tests
12/06/24 12/07/24 12/08/24
10:30 05:36 06:17
WBC 4.4 L 4.2 L 3.8 L
RBC 3.19 L 3.10 L 3.06 L
Plt Count 94 L 112 L 103 L
12/09/24 12/10/24
06:40 07:02
WBC 4.3 L 4.7 L
RBC 3.07 L 3.09 L
Plt Count 111 L 122 L
Could you clarify the appropriate diagnosis that supports the above lab abnormalities and additional evaluation/ monitoring:
Pancytopenia
Thrombocytopenia only
Other
Use of terms such as suspected, likely, concern for, or probable (associated with a specific diagnosis that is being evaluated, monitored, or treated as if it exists) are acceptable and can be coded in the inpatient setting, when documented at the
time of discharge.
Thank you,
Gunjan Tim RN, BSN
CDI Specialist
tiger text
Please use your independent medical judgment in providing your response.
[2024-12-10 12:25] LABS: Glucose - Point of Care 198 mg/dl (70-99)
[2024-12-10] MEDS: NOVOLOG FLEXPEN-MODERATE RESISTANCE 1 UNITS SC ×2 (12:38→17:23)
--- NOTE | 2024-12-10 13:35 | W.PN.HOSP.TC ---
Today's Communication/Plan
-
dc to SNF when bed/auth available. Medically stable d/w CM.
Assessment / Plan
Assessment / Plan
Assessment:
Massive bilateral PE with RV strain, hypoxia, hypotension (Acute Cor Pulmonale)
- CT: SEVERE ACUTE BILATERAL PULMONARY ARTERIAL EMBOLIC DISEASE with large pulmonary arterial emboli in both the right and left pulmonary arteries. ACUTE RIGHT HEART STRAIN and PULMONARY ARTERIAL HYPERTENSION
- US: nonocclusive thrombus within the mid left femoral vein and mid left popliteal vein. There is occlusive thrombus within the distal left femoral vein and throughout the left popliteal and peroneal veins, as well as within the proximal and distal
aspects of the left posterior tibial vein
- PERT alert in ER
- s/p catheter directed thrombolysis (tPA) and mechanical thrombectomy (suction thrombectomy of both the R and L main pulmonary arteries) by IR
- continue Eliquis; lifelong therapy recommended per Pulmonary
- Echo: Small left ventricle with normal systolic function; LVEF 60-65% by visual estimate. Severely dilated and hypokinetic right ventricle. There is relative sparing of systolic function in the RV apex consistent with right ventricular strain
(Louis's sign). Mild to moderate tricuspid regurgitation. Estimated pulmonary artery pressure of 59 mmHg assuming a right atrial pressure of 15 mmHg.
- Elevated BNP related to RV failure acutely. No pulm edema on CT
Acute right sided HFpEF from PE
Acute on chronic LE Edema
- s/p IV Lasix - transition to PO Lasix 40mg today
Acute hypoxic respiratory failure in setting of PE
- stable on RA on walking
Type 2 ME from demand mismatch from PE
- Trop peaked at .173
New onset A. Fib
- new diagnosis
- normal TSH
- continue Eliquis/BB
- CBC Cards following
History of GI bleed
hx of PUD
- continue PPI BID
- noted heme+ stool per RN 12/08. Could be strain or from hemorrhoids- Hb is stable daily around 10.
History of acute kidney injury in 2024
Chronic kidney disease stage IIIb (1.9 from 05/13)
- Cr 1.2; monitor UOP
History of chronic diarrhea - follow stool chart.
Diabetes mellitus type 2 - hold Invokana and metformin controlled on sliding scale insulin. A1c is 6.0
History of CAD s/p remote stenting in early - resume aspirin once off of tPA. Will reassume statins once stable.
Acute thrombocytopenia in setting of Pancytopenia
- likely consumptive from acute clot; monitor trends
Code: Full
Dispo: SNF pending bed/auth
Anticipated Discharge: Within 24 hours
Subjective/Interval History
-
Date of Service: December 10, 2024
resting comfortably, no complaints at present
Objective Data
-
Labs:
Laboratory Results
12/10/24
07:02
WBC 4.7 L
Hgb 10.3 L
Hct 31.5 L
Plt Count 122 L
Sodium 135
Potassium 3.5
Chloride 100
Carbon Dioxide 30
BUN 28 H
Creatinine 1.2
Glucose 169 H
Calcium 8.5
Vital Signs:
Vital Signs
Temp Pulse Resp BP Pulse Ox
98.1 F 65 18 102/62 97
12/10/24 11:15 12/10/24 11:15 12/10/24 11:15 12/10/24 11:15 12/10/24 11:15
I&O
12/09/24 12/10/24 12/11/24
06:59 06:59 06:59
Intake Total 1140 / 1140 720 / 720
Output Total 1775 / 1775 2400 / 2400 400 / 400
Balance -635 / -635 -1680 / -1680 -400 / -400
Physical Exam
-
General: No Apparent Distress
HEENT: Normocephalic and Atraumatic
Respiratory: Negative Wheezes
Cardiac: Regular Rhythm and S1/S2
GI: Soft and Nontender
Musculoskeletal: Edema, Right Lower Extrem and Edema, Left Lower Extrem
Neuro: AO x 3
Psych: Calm
Data Reviewed
-
Total Time Spent with Patient (in minutes): 42
Labs: Labs Reviewed by me
[2024-12-10] MEDS: LASIX 20 MG PO (14:30)
[2024-12-10 16:16] LABS: Glucose - Point of Care 177 mg/dl (70-99)
[2024-12-10 21:13] LABS: Glucose - Point of Care 247 mg/dl (70-99)
[2024-12-11] VITALS (7 sets, daily range): BP systolic 113–134; BP diastolic 61–82; PULSE 69; O2SAT 93; BMI 38.9
[2024-12-11] MEDS: SYNTHROID 100 MCG PO (05:08)
[2024-12-11 07:17] LABS: Glucose - Point of Care 191 mg/dl (70-99)
[2024-12-11] MEDS: PROTONIX 40 MG PO (07:49)
[2024-12-11] MEDS: ELIQUIS 10 MG PO (07:49)
[2024-12-11] MEDS: COREG 12.5 MG PO (07:49)
[2024-12-11] MEDS: VITAMIN D3 (cholecalciferol) 25 MCG PO (07:49)
[2024-12-11] MEDS: VITAMIN B-12 1000 MCG PO (07:49)
[2024-12-11] MEDS: LASIX 40 MG PO (07:52)
[2024-12-11] MEDS: NOVOLOG FLEXPEN-MODERATE RESISTANCE 1 UNITS SC (07:53)
--- NOTE | 2024-12-11 09:14 | CM ---
Received message from [facility] last evening w/ approved authorization, no information was left
CM called [facility], spoke w/ Rangel. Patient approved beginning 12/11 NRD 12/12
Auth ID # [id number]. clinical training coordinator will be Miriam Cervantes
Facility to fax update to [phone]
Updated hospitalist, will plan to d/c today
Spouse mentioned yesterday she would be able to transport patient, will confirm this today
IMM verbally reviewed, copy provided, copy on chart
[facility]
Report: [phone]

Plan: D/c to [facility] today
--- NOTE | 2024-12-11 10:27 | W.PN.HOSP.TC ---
Today's Communication/Plan
-
dc SNF today
Assessment / Plan
Assessment / Plan
Assessment:
Massive bilateral PE with RV strain, hypoxia, hypotension (Acute Cor Pulmonale)
- CT: SEVERE ACUTE BILATERAL PULMONARY ARTERIAL EMBOLIC DISEASE with large pulmonary arterial emboli in both the right and left pulmonary arteries. ACUTE RIGHT HEART STRAIN and PULMONARY ARTERIAL HYPERTENSION
- US: nonocclusive thrombus within the mid left femoral vein and mid left popliteal vein. There is occlusive thrombus within the distal left femoral vein and throughout the left popliteal and peroneal veins, as well as within the proximal and distal
aspects of the left posterior tibial vein
- PERT alert in ER
- s/p catheter directed thrombolysis (tPA) and mechanical thrombectomy (suction thrombectomy of both the R and L main pulmonary arteries) by IR
- continue Eliquis; lifelong therapy recommended per Pulmonary
- Echo: Small left ventricle with normal systolic function; LVEF 60-65% by visual estimate. Severely dilated and hypokinetic right ventricle. There is relative sparing of systolic function in the RV apex consistent with right ventricular strain
(Louis's sign). Mild to moderate tricuspid regurgitation. Estimated pulmonary artery pressure of 59 mmHg assuming a right atrial pressure of 15 mmHg.
- Elevated BNP related to RV failure acutely. No pulm edema on CT
Acute right sided HFpEF from PE
Acute on chronic LE Edema
- s/p IV Lasix - PO Lasix 40mg at discharge
Acute hypoxic respiratory failure in setting of PE
- stable on RA on walking
Type 2 PR from demand mismatch from PE
- Trop peaked at .173
New onset A. Fib
- new diagnosis
- normal TSH
- continue Eliquis/BB
- CBC Cards following
History of GI bleed
hx of PUD
- continue PPI BID
- noted heme+ stool per RN 12/08. Could be strain or from hemorrhoids- Hb is stable daily around 10.
History of acute kidney injury in 2024
Chronic kidney disease stage IIIb (1.9 from 05/13)
- Cr 1.2; monitor UOP
History of chronic diarrhea - follow stool chart.
Diabetes mellitus type 2 - hold Invokana and metformin controlled on sliding scale insulin. A1c is 6.0
History of CAD s/p remote stenting in early - resume aspirin once off of tPA. Will reassume statins once stable.
Acute thrombocytopenia in setting of Pancytopenia
- likely consumptive from acute clot; monitor trends
Code: Full
Dispo: SNF today
Anticipated Discharge: Today
Subjective/Interval History
-
Date of Service: December 11, 2024
resting comfortably, no complaints at present
Objective Data
-
Vital Signs:
Vital Signs
Temp Pulse Resp BP Pulse Ox
98.3 F 78 17 134/82 95
12/11/24 07:00 12/11/24 07:49 12/11/24 07:00 12/11/24 07:52 12/11/24 07:00
I&O
12/10/24 12/11/24 12/12/24
06:59 06:59 06:59
Intake Total 720 / 720 1440 / 1440
Output Total 2400 / 2400 1800 / 1800
Balance -1680 / -1680 -360 / -360
Physical Exam
-
General: No Apparent Distress
HEENT: Normocephalic and Atraumatic
Respiratory: Negative Wheezes
Cardiac: Regular Rhythm and S1/S2
GI: Soft
Neuro: AO x 3
Psych: Calm
Data Reviewed
-
Total Time Spent with Patient (in minutes): 41
Labs: Labs Reviewed by me
--- NOTE | 2024-12-11 10:30 | W.DCSUMMARY ---
Discharge Summary
Discharge Data
Date of Admission: 12/03/24
Date of Discharge: 12/11/24
-
Pending Results: No
Hospital Course
69 y/o M with hx of CAD, hx of PUD, CKD stage 3b, type 2 DM who presented to ER on 12/03 with acute SOB with sweating. in ER he was found to have hypoxia and hypotension. A PE Study showed bilateral PE with RV strain and cor pulmonale. a DVT study
showed nonocclusive thrombus within the mid left femoral vein and mid left popliteal vein. There is occlusive thrombus within the distal left femoral vein and throughout the left popliteal and peroneal veins, as well as within the proximal and
distal aspects of the left posterior tibial vein. A PERT alert was called and IR/Pulmonary decided on Catheter directed thrombolysis and later mechanical thrombectomy. Patient was started on IV heparin drip and later transitioned to oral Eliquis
(pulmonary recommended lifelong Eliquis). His O2 was weaned to RA.
His course was complicated by Acute HFpEF in setting of Right sided heart failure along with new onset A. Fib. He was started on IV Lasix and transitioned to oral Lasix. He started on beta-margarita.
He was seen by PT/OT and recommended for SNF. He was discharged to SNF on 12/11/24.
Discharge Plan
-
Patient Disposition: [facility]NF
Discharge Diagnosis/Procedures: bilateral PE With cor pulmonale, Acute HFpEF, Afib
Condition: Fair
Diet: Low Cholesterol and Diabetic, Carb Controlled
Activity: As tolerated
Other Services: PT and OT
Referrals:
David Gómez MD [Active, Pulmonary Medicine] - in three to four weeks
Referral Note: w/ PFT
Tara Jim MD [Family Provider, Family Practice]
Margaret Saldivar CRNP [Specified Professional Personl, Cardiology] - 12/17/24 8:40 am
Prescriptions:
New
Eliquis 5 mg Tablet
5 mg PO DIRECTED Qty: 60 0RF
Rx Instructions:
take 10mg BID x 2 days to complete loading sequence, then 5mg BID
carvedilol 12.5 mg Tablet
12.5 mg PO BID Qty: 60 0RF
pantoprazole 40 mg Tablet,Delayed Release (Dr/Ec)
40 mg PO DAILY Qty: 30 0RF
furosemide 40 mg Tablet
40 mg PO DAILY Qty: 30 0RF
Continued
metformin 500 MG tablet extended release 24hr
1,000 mg PO BID
Invokana 100 MG tablet
100 mg PO DAILY
aspirin 81 MG tablet,delayed release (DR/EC)
81 mg PO DAILY Qty: 0 0RF
Rx Instructions:
in 5 days
cyanocobalamin (vitamin B-12) [Vitamin B-12] 1,000 mcg Tablet
1,000 mcg PO DAILY 30 Days Qty: 30 1RF
atorvastatin [Lipitor] 80 mg Tablet
80 mg PO DAILY
levothyroxine 100 mcg tablet
100 mcg PO DAILY
cholecalciferol (vitamin D3) [Vitamin D3] 25 mcg (1,000 unit) Tablet
25 mcg PO DAILY
Discontinued
carvedilol [Coreg] 25 MG tablet
25 mg PO BID
ramipril 10 MG capsule
10 mg PO DAILY
pantoprazole 20 mg Tablet,Delayed Release (Dr/Ec)
20 mg PO DAILY
Discharge Orders:
Discharge Patient (As Directed); Ordered 12/11/24
Ordered By: Ana Gorman
Discharge Date and Time
Print Language: PARAGUAYAN
[2024-12-11 12:16] LABS: Glucose - Point of Care 234 mg/dl (70-99)
[2024-12-11] MEDS: NOVOLOG FLEXPEN-MODERATE RESISTANCE 3 UNITS SC (12:48)
--- NOTE | 2024-12-11 15:35 | PTCARENOTE ---
report given to Nurse Spivey at [facility]. Patient's is at bedside and will transport patient to SNF
== END 2024-12-11 17:22 | DRG 163 ==
LOC: 4 WEST ACU 08:56
PROVIDERS: Radiology Diagnostic Radiology; ADMITTING PHYSICIAN Internal Medicine; ATTENDING PHYSICIAN Internal Medicine; CONSULT PHYSICIAN Internal Medicine; EMERGENCY PHYSICIAN Emergency Medicine; FAMILY PHYSICIAN Family Medicine
PROC: B31S1ZZ Fluoroscopy of Right Pulmonary Artery using Low Osmolar Contrast (ICD-10-PCS; 2024-12-03)
PROC: 02FQ3Z0 Fragmentation of Right Pulmonary Artery, Percutaneous Approach, Ultrasonic (ICD-10-PCS; 2024-12-03)
PROC: 02CQ3ZZ Extirpation of Matter from Right Pulmonary Artery, Percutaneous Approach (ICD-10-PCS; 2024-12-03)
DX: I26.09 Other pulmonary embolism with acute cor pulmonale (principal); I50.31 Acute diastolic (congestive) heart failure; J96.01 Acute respiratory failure with hypoxia; I13.0 Hypertensive heart and chronic kidney disease with heart failure and stage 1 through stage 4 chronic kidney disease, or unspecified chronic kidney disease; D61.818 Other pancytopenia; N18.32 Chronic kidney disease, stage 3b; E11.22 Type 2 diabetes mellitus with diabetic chronic kidney disease; I25.10 Atherosclerotic heart disease of native coronary artery without angina pectoris; Z87.11 Personal history of peptic ulcer disease; I48.0 Paroxysmal atrial fibrillation; E78.00 Pure hypercholesterolemia, unspecified; E03.9 Hypothyroidism, unspecified; K21.9 Gastro-esophageal reflux disease without esophagitis; Z88.5 Allergy status to narcotic agent; Z79.890 Hormone replacement therapy; Z79.82 Long term (current) use of aspirin; Z79.84 Long term (current) use of oral hypoglycemic drugs; Z82.49 Family history of ischemic heart disease and other diseases of the circulatory system; Z86.711 Personal history of pulmonary embolism; E66.9 Obesity, unspecified; Z68.38 Body mass index [BMI] 38.0-38.9, adult; I27.29 Other secondary pulmonary hypertension; Z95.5 Presence of coronary angioplasty implant and graft; Z79.899 Other long term (current) drug therapy
CPT/HCPCS: 36014; 36620; 37184; 71045; 71275; 75741; 80048; 80053; 82962; 83036; 83735; 83880; 84443; 84484; 85025; 85027; 85379; 85384; 85610; 85730; 93005; 93306; 93970; 96361; 96374; 96376; 97116; 97162; 97166; 97530; 97535; 99152; 99153; 99291; C1769; C1887; J2997; Q9950; Q9967

== ENCOUNTER → 2025-01-19 13:34 | Outpatient (REF) | payer MEDICARE, SELFPAY | LOC: HWRCS 13:34 | PROVIDERS: ATTENDING PHYSICIAN Nurse Practitioner Gerontology; FAMILY PHYSICIAN Family Medicine | DX: I50.32 Chronic diastolic (congestive) heart failure (principal); I26.99 Other pulmonary embolism without acute cor pulmonale; I51.7 Cardiomegaly | CPT/HCPCS: 93306 ==